=== PATIENT | female | born 1950 | race Caucasian/White ===

== ENCOUNTER 2023-04-02 13:31 | Outpatient (CLI) | payer MEDICARE, SELFPAY | END 2023-04-02 13:32 | disposition home or self-care (01) | LOC: KYNREF 13:32 | PROVIDERS: PCP Nurse Practitioner Family; Visit Provider Nurse Practitioner Family | DX: Z00.00 Encounter for general adult medical examination without abnormal findings (principal); E89.0 Postprocedural hypothyroidism; E03.9 Hypothyroidism, unspecified | CPT/HCPCS: 84439; 84443 ==

== ENCOUNTER 2023-06-05 09:00 | Outpatient (CLI) | payer MEDICARE, SELFPAY | END 2023-06-05 09:01 | disposition home or self-care (01) | PROVIDERS: PCP Nurse Practitioner Family; Referring Provider Nurse Practitioner Family; Visit Provider Nurse Practitioner Family | DX: E89.0 Postprocedural hypothyroidism (principal) | CPT/HCPCS: 84443 ==

== ENCOUNTER 2023-06-15 15:43 | Outpatient (CLI) | payer MEDICARE, SELFPAY ==
--- NOTE | 2023-06-15 16:00 | CRLHL7_ITS ---
For Patients: As a result of the Century Cures Act, medical imaging exams and procedure reports are released immediately into your electronic medical record. You may view this report before your referring provider. If you have questions, please contact your health care provider. CLINICAL HISTORY: POSTMENOPAUSAL BLEEDING TECHNIQUE: 2D ibarra scale and color Doppler images were acquired of the pelvis using a transvaginal approach. FINDINGS: The uterus measures 5.4 x 2.9 x 3.6 cm. There is a heterogeneous nodular structure within the endometrium measuring 11 x 6 x 10 millimeters. The endometrial thickness is 9 millimeters. A small amount of fluid is present in the endometrial canal. The ovaries are not visualized. There are no suspicious fluid collections within the cul-de-sac. IMPRESSION: Possible endometrial polyp measuring 1.1 cm. Endometrial thickness 9 millimeters with a small amount of fluid in the endometrial canal. No uterine fibroid. Dictated by Gaetano Jorgensen MD @ 06/18/2023 3:27:31 PM (Electronically Signed)
== END 2023-06-15 15:44 | disposition home or self-care (01) ==
LOC: US 15:44
PROVIDERS: PCP Nurse Practitioner Family; Visit Provider Physician Assistant
DX: N95.0 Postmenopausal bleeding (principal); R93.89 Abnormal findings on diagnostic imaging of other specified body structures
CPT/HCPCS: 76830

== ENCOUNTER 2023-06-22 10:39 | Outpatient (CLI) | payer MEDICARE, SELFPAY | END 2023-06-22 10:40 | disposition home or self-care (01) | PROVIDERS: PCP Nurse Practitioner Family; Referring Provider Nurse Practitioner Family; Visit Provider Obstetrics & Gynecology | DX: N95.0 Postmenopausal bleeding (principal); Z80.0 Family history of malignant neoplasm of digestive organs | CPT/HCPCS: 87086 ==

== ENCOUNTER 2023-08-02 08:55 | Outpatient (CLI) | payer MEDICARE, SELFPAY | END 2023-08-02 08:56 | disposition home or self-care (01) | PROVIDERS: PCP Nurse Practitioner Family; Visit Provider Nurse Practitioner Family | DX: Z01.818 Encounter for other preprocedural examination (principal); N95.0 Postmenopausal bleeding | CPT/HCPCS: 80048; 85025 ==

== ENCOUNTER 2023-08-14 06:01 | Day surgery (SDC) | payer MEDICARE, SELFPAY ==
[2023-08-14 06:09] VITALS: BMI 26.9
[2023-08-14 06:23] VITALS: BP 135/72; PULSE 83; RESP 16; TEMP 37.4; O2SAT 98
[2023-08-14] MEDS: LACTATED RINGERS 1000 ML 1,000 ML 100 ML IV (06:30)
[2023-08-14] MEDS: SODIUM CHLORIDE 0.9 % (FLUSH) 10 ML SYRINGE IVF (06:30)
[2023-08-14 06:38] LABS: Hemoglobin* 14.2 gm/dL (12.0-16.0)
[2023-08-14 07:02] LABS: Creatinine* 0.7 mg/dL (0.5-1.5); Estimated Glomerular Filt Rate 93 ml/min
--- NOTE | 2023-08-14 07:13 | PM.GYNHPPRM ---
RESEARCH AND DEVELOPMENT TESTER: H&P: HPI Surgical History of Present Illness Time Seen by Provider: 07:00 Date Seen: 08/14/23 Last H&P: History & Physical 08/02/23 08:29 Narrative: Juliana Leal is a 72 year old female seen in pre-op prior to planned hysteroscopy, dilation and curettage and possible polypectomy in the setting of postmenopausal bleeding. Past medical history significant for hypothyroidism, osteopenia, anxiety, GERD, history of bowel obstruction requiring hemicolectomy. 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 Please see my consult note on 06/22/2023 for complete details. Celine is feeling well this morning, no interval change sure all history. She does note cramping secondary to use of preoperative misoprostol. Pelvic US 06/15/23 Impression: Possible endometrial polyp measuring 1.1 cm. Endometrial thickness 9 millimeters with a small amount of fluid in the endometrial canal. No uterine fibroid. PFSH [facility] Medical History (Updated 08/02/23 @ 08:57 by Brittany Navarro APRN, CRITICAL CARE NURSE) Hx of eczema ?Z87.2 - Personal history of diseases of the skin and subcutaneous tissue (ICD-10) Seasonal allergies ?J30.2 - Other seasonal allergic rhinitis (ICD-10) History of anxiety ?Z86.59 - Personal history of other mental and behavioral disorders (ICD-10) History of colon polyps ?Z86.010 - Personal history of colonic polyps (ICD-10) History of depression ?Z86.59 - Personal history of other mental and behavioral disorders (ICD-10) History of multinodular goiter ?Z86.39 - Personal history of other endocrine, nutritional and metabolic disease (ICD-10) Surgical History (Updated 06/12/23 @ 08:42 by Xi Loera PA-C) History of D&C ?Z98.890 - Other specified postprocedural states (ICD-10) History of colposcopy ?Z98.890 - Other specified postprocedural states (ICD-10) History of colectomy ?Z90.49 - Acquired absence of other specified parts of digestive tract (ICD-10) History of right knee surgery ?Z98.890 - Other specified postprocedural states (ICD-10) H/O bilateral cataract extraction ?Z98.41 - Cataract extraction status, right eye (ICD-10) ?Z98.42 - Cataract extraction status, left eye (ICD-10) History of surgery on right wrist ?Z98.890 - Other specified postprocedural states (ICD-10) History of tubal ligation ?Z98.51 - Tubal ligation status (ICD-10) History of thyroidectomy ?E89.0 - Postprocedural hypothyroidism (ICD-10) Family History (Updated 06/28/23 @ 04:10 by Brittany Navarro APRN, CRITICAL CARE NURSE) Father Ataxia Mother Colon cancer, Onset Age: 26 Social History (Updated 08/02/23 @ 08:45 by Brittany Navarro APRN, CRITICAL CARE NURSE) Narrative: Retired. Non smoker, rare alcohol use. No illicit drug use. 3 children. Smoking Status: Never smoker Do you use any of these nicotine containing products: None How often do you have a drink containing alcohol: monthly or less Alcohol type: wine How many standard drinks containing alcohol do you have on a typical day: 1 or 2 How often do you have six or more drinks on one occasion: Never AUDIT-C Alcohol total score: 1 Non-prescribed substance use: marijuana (any form) Non-prescribed substance use details: CBD oil Caffeine: No Are you using contraception or practicing any form of control: No Meds Home Medications and Allergies Allergies Allergy/AdvReac Type Severity Reaction Status Date / Time acetaminophen [From Vicodin] Allergy Verified 08/02/23 08:30 aspirin Allergy Verified 08/02/23 08:30 bacitracin Allergy Verified 08/02/23 08:30 erythromycin base Allergy Verified 08/02/23 08:30 hydrocodone [From Vicodin] Allergy Verified 08/02/23 08:30 ketorolac [From Toradol] Allergy Verified 08/02/23 08:30 NSAIDS (Non-Steroidal Allergy Verified 08/02/23 08:30 Anti-Inflamma sulfamethoxazole Allergy Verified 08/02/23 08:30 [From Sulfamethoxazole-Trimethoprim] trimethoprim Allergy Verified 08/02/23 08:30 [From Sulfamethoxazole-Trimethoprim] RESEARCH AND DEVELOPMENT TESTER - Exam Physical Exam: Vital signs: Temp Pulse Resp BP Pulse Ox O2 Del Method 99.4 F 83 16 135/72 98 Room Air 08/14/23 06:23 08/14/23 06:23 08/14/23 06:23 08/14/23 06:23 08/14/23 06:23 08/14/23 06:23 Narrative: Physical exam: General: No acute distress Psych: Alert and oriented x3, full affect Heart: Regular rate and rhythm, no murmur rub or gallop Lungs: Clear to auscultation bilaterally RESEARCH AND DEVELOPMENT TESTER - Results Labs Labs: Short CBC 08/14/23 Range/Units 06:30 Hgb 14.2 (12.0-16.0) gm/dL Assessment and Plan Assessment and plan (1) Postmenopausal bleeding: Status: Acute Plan Plan to proceed with hysteroscopy, dilation and curettage and possible polypectomy in the setting of postmenopausal bleeding with thickened endometrial stripe and possible endometrial polyp. Given history of cervical stenosis, pre-operative misoprostol was administered. We again reviewed risks of surgery, where she is at increased risk of perforation in the setting of cervical stenosis. Written consent obtained previously, re-initialed this morning. In addition, she has a history of high-grade cervical dysplasia requiring LEEP in 2006. We discussed recommendation for 25 years of cervical cancer screening following high-grade dysplasia per [facility]P, plan to obtain repeat Pap/HPV testing today. We added this to her consent form and Celine provided an initial by this statement to acknowledge it. Preoperative hemoglobin in creatinine reviewed, within normal limits. Celine does have several medication allergies, notably including NSAIDs. She notes her reaction to this is facial swelling, that may be delayed in onset. She is able to tolerate Tylenol at home. As such, we will avoid all NSAIDs. Recommend she utilize 1000 mg Tylenol q6h scheduled for the 1st 48-72 hours after surgery for cramping, and heat therapy. No perioperative antibiotics indicated. Discussed postoperative restrictions and return precautions. Recommend pelvic rest x2 weeks. No lifting restriction. Encouraged patient to call with any worsening pain, heavy vaginal bleeding, nausea/vomiting, fevers or chills, signs or symptoms of a VTE, heart attack or stroke.
[2023-08-14] MEDS: BUPIVACAINE 0.5% 30 ML INJECTION (08:00)
--- NOTE | 2023-08-14 08:30 | W.ANESCHARGE ---
Anesthesia Charges Start Date/Time Anesthesia Start Date: 08/14/23 Anesthesia Start Time: 07:15 Stop Date/Time Anesthesia Stop Date: 08/14/23 Anesthesia Stop Time: 08:46 Summary Extremes of Age - Over 70 or under 1: MDA
[2023-08-14] MEDS: SILVER NITRATE APPLICATOR 1 EACH STICK..EA. TOPICAL (08:33)
[2023-08-14 08:44] VITALS: BP 113/59; PULSE 68; RESP 16; TEMP 37.1; O2SAT 96
--- NOTE | 2023-08-14 08:53 | P.GYNPRC_ITS ---
Procedure Note Time Seen by Provider: 08:53 Date of procedure: 08/14/23 Pre-op diagnosis: Post-menopausal bleeding Post-op diagnosis: same Procedure: Exam under anesthesia Pap test Attempted hysteroscopy Repair of vaginal laceration Complications: Inability to enter uterine cavity for sampling Uterine perforation Surgeon: Micha Haji MD Estimated blood loss (mL): 10 IV fluids (mL): 700 Pathology: none sent Condition: stable Disposition: same day Findings: External genital exam within normal limits Cervix flush with vaginal mucosa Severe cervical stenosis Vaginal atrophy Procedure Description: Procedure in detail: Patient was taken to the operating room with IV running. She was positioned in dorsal lithotomy position with her legs fully supported in Yellofin stirrups. Monitored anesthesia care was administered. She received pre-op cytotec given history of cervical stenosis, no antibiotics for the case. Procedure pause was held for Pap test. Sterile speculum inserted, where no appreciable cervix could be visualized. Speculum removed and bimanual exam was performed to palpate cervix. Speculum was reinserted with attempt to visualize previously palpated cervix. Pap spatula and brush utilized to attempt to collect specimen, though cervical os was still unable to be visualized. Speculum removed. She was then prepped and draped in the usual sterile fashion. A surgical pause was performed. Speculum was inserted. Inability to visualize any residual cervix (status post LEEP) was noted. An Allis clamp was utilized to grasp site of previously palpated cervix. Speculum was removed and digital exam was used to confirm that the cervix was within Allis clamp. Speculum was reinserted. Allis was revised to a single-tooth tenaculum. Mini-cervical dilator of the smallest diameter was utilized to attempt to gently probe open the external os without success. An 11 blade was utilized to make a 2 mm incision at the site of suspected external os. Mini-cervical dilators and os finder were utilized to gently dilate endocervical canal with significant difficulty. I intentionally inserted dilators where least resistance was felt, and to a depth that should traverse her cervix but not so much that it would exceed her uterine length of 5.4 cm (noted on ultrasound). Attempted to insert operative hysteroscope, which not be accommodated through her narrowed os. 1 cm vaginal laceration was noted following hysteroscopy attempt at the posterior fornix, pressure applied. We then retrieved a 2 mm diagnostic hysteroscope from the clinic, which was sterilely set up for use to ensure that dilated canal was truly the endocervical canal versus a false passage. The 2 mm flexible hysteroscope was inserted into the endocervical canal, where sharp anteflexion was required to stay within apparent endocervical canal. When I attempted to gently advanced through the internal os, a loss of resistance was felt and peritoneal contents visualized. The hysteroscope was immediately removed in the setting of uterine perforation, suspected to be anterior fundal in location. Decision was made to stop procedure, where tissue sampling could not be safely accomplished. No sharp instruments were utilized through the entirety of the attempted hysteroscopy. I asked Dr. Armstrong to present for the case for assistance given severe cervical stenosis. She completed a pelvic exam under anesthesia as well, where she affirmed the above exam findings including the inability to distinguish the cervix from vaginal tissue. A weighted speculum was reintroduced to visualize posterior fornix vaginal laceration. This was repaired in a running/locking fashion with 3-0 Vicryl suture. Excellent hemostasis noted. Tenaculum removed from anterior cervix, hemostasis achieved with silver nitrate. Patient tolerated procedure well. She was taken to recovery area in stable condition. Debrief completed. Procedure was exam under anesthesia, pap test, attempted hysteroscopy and repair of vaginal laceration. Complications included uterine perforation with a blunt instrument. Specimen includes Pap test for cytolo gy/HPV. EBL 10cc. IVF 700cc.
--- NOTE | 2023-08-14 08:54 | P.ANES_ITS ---
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
[2023-08-14 09:00] VITALS: BP 112/70; PULSE 50; RESP 16; O2SAT 100
[2023-08-14 09:15] VITALS: BP 126/67; PULSE 53; RESP 16; O2SAT 95
[2023-08-14] MEDS: ACETAMINOPHEN 500 MG TABLET 1000 MG PO (09:29)
[2023-08-14 09:30] VITALS: BP 129/73; PULSE 65; RESP 16; O2SAT 98
--- NOTE | 2023-08-14 09:37 | SUR.PHASEII ---
PATIENT TOLERATING CRANBERRY JUICE AND YOGURT.
[2023-08-14 09:45] VITALS: BP 129/74; PULSE 60; RESP 16; O2SAT 98
== END 2023-08-14 10:00 | disposition home or self-care (01) ==
PROVIDERS: PCP Nurse Practitioner Family; Visit Provider Obstetrics & Gynecology
PROC: 0UDB8ZZ Extraction of Endometrium, Via Natural or Artificial Opening Endoscopic (ICD-10-PCS; CPT 58558; principal; 2023-08-14 07:15)
DX: N95.0 Postmenopausal bleeding (principal); N88.2 Stricture and stenosis of cervix uteri; N95.2 Postmenopausal atrophic vaginitis; N99.71 Accidental puncture and laceration of a genitourinary system organ or structure during a genitourinary system procedure; Z53.8 Procedure and treatment not carried out for other reasons
CPT/HCPCS: 58555; 57200; 00952; 36415; 82565; 85018; 99100; A9270; J0665; J1100; J2704; J3010; J7120

== ENCOUNTER 2023-09-25 08:49 | Outpatient (CLI) | payer MEDICARE, SELFPAY | END 2023-09-25 08:50 | disposition home or self-care (01) | PROVIDERS: PCP Nurse Practitioner Family; Visit Provider Nurse Practitioner Family | DX: Z13.228 Encounter for screening for other metabolic disorders (principal); Z13.0 Encounter for screening for diseases of the blood and blood-forming organs and certain disorders involving the immune mechanism | CPT/HCPCS: 80053; 85025 ==

== ENCOUNTER 2023-10-09 08:04 | Day surgery (SDC) | payer MEDICARE, SELFPAY ==
[2023-10-09] VITALS (19 sets, daily range): BP systolic 97–125; BP diastolic 57–79; PULSE 62–84; RESP 10–18; TEMP 36.2–37.3; O2SAT 85–100; BMI 26.9
[2023-10-09] MEDS: SODIUM CHLORIDE 0.9 % (FLUSH) 10 ML SYRINGE IVF (08:59)
[2023-10-09] MEDS: LACTATED RINGERS 1000 ML 1,000 ML 100 ML IV ×2 (09:00→13:16)
[2023-10-09 09:28] LABS: Creatinine* 0.6 mg/dL (0.5-1.5); Est. Creatinine Clearance* 38.94; Estimated Glomerular Filt Rate 96 ml/min
--- NOTE | 2023-10-09 09:53 | W.PM.H&PU_ITS ---
History & Physical Update History & Physical Update H&P Reviewed and patient assessed: No changes noted H&P Updates: Ms. Leal is a 73yo seen in pre-op prior to planned total laparoscopic hysterectomy, bilateral salpingo-oophorectomy, possible posterior repair and diagnostic cystoscopy, proceed as indicated. We again reviewed surgical plan in detail. I explained I will begin the procedure with a diagnostic laparoscopy. I anticipate we will then proceed with total laparoscopic hysterectomy versus laparoscopic-assisted vaginal hysterectomy with bilateral salpingo-oophorectomy given her prior pelvic/sigmoid surgery. If it is felt to be unsafe to proceed laparoscopically due to adhesions given prior sigmoid colectomy, I explained that we would convert to an open procedure via likely a Pfannenstiel incision. She expressed understanding and is agreeable to plan. After cuff closure, I will complete an assessment of her posterior compartment prolapse. In the office, her prolapse was quite mild but patient does require splinting. I explained this could be due to her mild post erior repair, but I would likely need to complete an episiotomy to repair it given degree that her perineum is built up so the risk of posterior repair may outweigh benefit depending on my intraoperative findings. Juliana expressed understaning and is comfortable with me making a decision on her behalf intraoperatively. We again reviewed risks of surgery including bleeding, infection, damage to surrounding structures, reoperation and complications of anesthesia/surgery such as VTE, heart attack, stroke and rarely . Consent was re-signed. Reviewed plan for one night in the hospital post-procedure. Discussed post-op lifting restrictions, pelvic rest and return precautions in depth. All questions answered. Conversation took place with Juliana and her two sons present. VS reviewed. Pre-op labs: - Hgb: 14 - Cr: 0.6 - T/S on file Physical exam: General: No acute distress Psych: Alert and oriented x3, full affect Heart: Regular rate and rhythm, no murmur rub or gallop Lungs: Clear to auscultation bilaterally Plan as above. All questions answered. Perioperative ancef.
[2023-10-09] MEDS: CEFAZOLIN 2 GM INJ IVP (10:29)
[2023-10-09] MEDS: METHYLENE BLUE 1 % 10 ml 100 MG INJECTION (11:59)
--- NOTE | 2023-10-09 12:19 | W.ANESCHARGE ---
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
--- NOTE | 2023-10-09 12:42 | W.ANESCHARGE ---
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
--- NOTE | 2023-10-09 13:07 | P.GYNPRC_ITS ---
Procedure Note Time Seen by Provider: 13:07 Date of procedure: 10/09/23 Pre-op diagnosis: Postmenopausal bleeding Post-op diagnosis: same Procedure: Total laparoscopic hysterectomy Bilateral salpingectomy Left oophorectomy Diagnostic cystoscopy Lysis of adhesions Anesthesia: GETA Complications: None Surgeon: Micha Haji MD Multiple Punch Press Operator: Philly Light Estimated blood loss (mL): 100 IV fluids (mL): 1,700 Urine Output (mL): 200 Pathology: specimen obtained, sent to pathology Condition: stable Disposition: floor Findings: Adhesive disease secondary to prior sigmoid colectomy with anastomosis in the setting of recurrent diverticulitis Adhesions noted between the colon and bilateral adnexa, primarily thin and filmy with additional adhesions between the adnexa and colonic epiploa The right ovary could not be visualized secondary to overlying colon and adhesive disease Unremarkable uterus and bilateral fallopian tubes Normal diagnostic cystoscopy with bilateral ureteral efflux at completion of procedure Procedure Description: The patient was brought to the operating room where she underwent general anesthesia.? She was prepped and draped in synchronous position in [facility].?She received perioperative ancef. A speculum was inserted and, again, no cervix was able to visualized. Bimanual exam performed, where a stitch was subsequently placed on suspected cervix by digital palpation. A Lewis catheter was placed.?? We then turned our attention to the abdomen, and an infraumbilical 1-cm incision was made and carried down through the fascia using an open laparoscopic technique.? A Reed trocar was placed, and pneumoperitoneum was created.? The laparoscope was introduced, and bilateral liver and diaphragm surfaces were inspected and found to be normal.? All visible bowel and omentum were unremarkable.?Under direct vision, bilateral 5-mm lower quadrant ports as well as a left paramedian port were placed. ? In the pelvis, there was evidence of adhesive disease secondary to prior sigmoid colectomy in the setting of recurrent diverticulitis. Adhesions were noted primarily between the epiploa of the colon to the bilateral adenxa, right greater than left. The serosa of the colon was identified and noted to be well away from areas of adhesions. We first mobilized the thin adhesions between the left adnexa and epiploa of the colon, with ligasure and gentle blunt dissection. Attention was then turned to the right, where the fallopian tube was gently elevated and adhesions were taken down. These adhesions were primarily thin, but there were areas where the epiploa itself was adherent to the tube and paraovarian fossa which were again taken down with a combination of ligasure and blunt dissection. The right ovary could not be visualized, as it was suspected to be located underlying bowel epiploa. This was in closer proximity to the serosa of the bowel, where decision was made to proceed with right salpingectomy rather than our intended opportunistic salpingo-oophorectomy. The left infundibulopelvic vessels were isolated, sealed, and transected using the ligasure, and the left tube and ovary were dissected off of the pelvic sidewall.?We proceeded to seal/transect the left round and broad ligaments. A v aginal probe was placed. The bladder flap peritoneum was then incised and the bladder was reflected down off the lower uterine segment, cervix, and upper vagina. The posterior peritoneum and ureterosacral ligament was divided to isolate course of planned colpotomy. The uterine vasculature was skeletonized and sealed and transected using ligasure. Attention was then turned to the right, where a right salpingectomy was performed with ligasure. Transection/ligation down the broad ligament occurred in a similar fashion, where right bladder flap was again developed to well below the site of planned colpotomy. Posterior peritoneum/uterosacral ligaments were taken down. The right uterine vessels were isolated, sealed and transected with ligasure. A vaginotomy was performed with Valleylab cautery against the vaginal probe, and a circumferential incision was then made around the cervix.? The uterus, tubes, and left ovary were delivered through the vagina and sent to Pathology.?The vagina was then closed transvaginally using interrupted 0 Vicryl sutures, incorporating the uterosacral ligaments bilaterally.?A small vaginal laceration was noted at the posterior vaginal introitus, where a single [id number]-[id number] suture was utilized to close defect. Cystoscopy was performed, where bladder survey was negative for injury/suture and bilateral ureteral efflux was readily apparent. I then rescrubbed and turned our attention again to the laparoscopic portion of the procedure. The pelvis was inspected and hemostasis was assured. Intraoperative consultation with General Surgery was requested, where Dr. Samayoa visually inspected the colonic epiploa and serosa where she agreed the areas of previous lysis of adhesion were well away from bowel serosa. Deja was applied over vaginal cuff. We did a low pressure test to 3mmHg where hemostasis was again confirmed. All instruments and ports were then removed.? The infraumbilical incision was closed with a layer of No. 1 Vicryl on the fascia, and all skin incisions were closed with 3-0 Monocryl in a subcuticular fashion.?Superficial surgical glue applied. Surgical debrief completed, specimens sent to pathology. EBL 100mL, IVF 1700mL and UOP 200mL. The patient tolerated the procedure well and went to recovery in stable condition.?
[2023-10-09] MEDS: ACETAMINOPHEN INJ 1,000 MG/100 ML VIAL 400 MG IVPB (13:18)
[2023-10-09] MEDS: LACTATED RINGERS 1000 ML 1,000 ML 35 ML IV (13:40)
--- NOTE | 2023-10-09 13:57 | SUR.PHASEI ---
patient met pacu d/c criteria
[2023-10-09] MEDS: fentaNYL 100 MCG/2 ML inj 50 MCG IVP (14:00)
[2023-10-09] MEDS: TRAMADOL HCL 50 MG TABLET PO ×2 (16:08→22:08)
[2023-10-09] MEDS: ACETAMINOPHEN 325 MG TABLET 650 MG PO ×2 (19:21→23:42)
[2023-10-10 03:30] VITALS: BP 105/59; PULSE 70; RESP 16; TEMP 37; O2SAT 94
[2023-10-10] MEDS: ACETAMINOPHEN 325 MG TABLET 650 MG PO (03:49)
[2023-10-10 07:01] LABS: Hemoglobin* 11.8 gm/dL (12.0-16.0)
[2023-10-10 07:45] VITALS: BP 96/58; PULSE 64; RESP 16; TEMP 36.9; O2SAT 92
--- NOTE | 2023-10-10 08:47 | P.DS_ITS ---
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 Indication for surgery: Postmenopausal bleeding with inability to sample the endometrium secondary to severe cervical stenosis. Intraoperative findings were notable for adhesive disease from prior sigmoid colon resection/anastomosis for recurrent diverticulitis, inability to visualize the right ovary. Please see my operative note for complete details. She had an uncomplicated surgery. Postoperative course has been uneventful. Vitals have been stable. She has remained afebrile. Today, on postoperative day 1, she reports the pain is well controlled on primarily Tylenol (though did take 1 dose of p.o. tramadol). She has been able to ambulate Without difficulty, specifically denies dizziness, lightheadedness, chest pain or dyspnea. She is tolerating regular diet. She is passing flatus. Lewis catheter has been removed, and she is voiding without difficulty. 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 Minimally tender to palpation in the bilateral lower quadrants, consistent with postoperative state. No rebound or guarding. Four laparoscopic incisions are well approximated without erythema/drainage, superficial surgical glue in place. 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 - DS: Data Data Completed and Pending Labs on day of discharge: Labs from last 24 hours 10/10/23 10/09/23 06:42 09:05 Hgb 11.8 L 14.0 Creatinine 0.6 Estimated Creat Clear 38.94 Estimated GFR 96 Blood Type A Positive Antibody Screen NEGATIVE Procedures Procedures: Procedures Operation Date: 10/09/23 09:50 Actual Procedure Side Surgeon p Total Laparoscopic Hysterectomy, Left Salpingo-Oophorectomy, Right Salpingectomy, Cystoscopy Not Applicable Alexandria Haji MD Discharge Plan Discharge Disposition: Home w/ Parent or Adult Discharging Surgeon: Alexandria Haji Follow-Up Appointment: 2 weeks and 6 weeks post-op Prescriptions: New tramadol 50 mg Tablet 50 mg PO Q6H PRN (Reason: Pain) 7 Days Qty: 10 0RF Continued levothyroxine 100 mcg tablet 100 mcg PO DAILY Discontinued peg 3350-electrolytes [Golytely] 236-22.74-6.74 -5.86 gram recon soln 240 ml PO Q10M Qty: 4000 0RF Rx Instructions: until fecal effluent is clear Activity Level: Activity as Tolerated Discharge Diet: Regular Additional Instructions: Lifting restrictions: Please do not lift more than 15lbs for 6 weeks Sexual restriction: Pelvic rest for 6 weeks Pain control: Over the counter Acetaminophen 1000 mg by mouth every six hours on a full stomach for pain as needed Tramadol 50mg every 6 hours as needed for breakthrough pain Please call with: - Heavy vaginal bleeding - Increasing or severe abdominal pain - Fevers/chills - Inability to tolerate solid/liquids by mouth, recurrent nausea/vomiting - Incision redness/drainage - Signs or symptoms of a blood clot - calf pain, redness, swelling, chest pain or shortness of breath Follow-up: Brittany Navarro APRN, [facility] HEAD [Primary Care Provider] - Discharge Orders: Discharge Order (Routine); Ordered 10/10/23 Ordered By: Alexandria Haji
[2023-10-10 09:45] VITALS: BP 102/60; PULSE 68; RESP 16; O2SAT 94
--- NOTE | 2023-10-10 13:16 | P.NB_ITS ---
Nerve Block Nerve Block Time Seen by Provider: 10:20 Date Seen: 10/09/23 Type of block requested by surgeon for post-operative analgesia: TAP Side: bilateral Time out performed: Yes Verification of patient name: Yes Verification of date of : Yes Site marking: site marked Name of person performing procedure: Toi Continuous monitoring Was continuous monitoring of O2 sat, B/P, artistic director, recorded every 15 minutes?: Yes Procedure Checklist: sterile prep, needles and gloves Ultrasound guided. Images saved: Yes Medications given in 5ml increments after negative aspiration: Marcaine %: 0.25 mL: 30 Needle gauge: 20 and Exparel mL: 10 Patient tolerated procedure well: Yes Additional comments: Needle noted between internal oblique and transversus abdominus. Local spread visualized Block Charges Block Charge (with Pro Fee): TAP Bilateral Use of Ultrasound Machine for Block: Yes- US Guidance/pain block
== END 2023-10-10 10:00 | disposition home or self-care (01) ==
LOC: OR 08:05 → MEDSURG 08:20 → OB 12:44
PROVIDERS: PCP Nurse Practitioner Family; Visit Provider Obstetrics & Gynecology
PROC: (CPT 58571; principal; 2023-10-09 09:30)
DX: N95.0 Postmenopausal bleeding (principal); N84.0 Polyp of corpus uteri; N73.6 Female pelvic peritoneal adhesions (postinfective); G89.18 Other acute postprocedural pain
CPT/HCPCS: 58571; 00840; 36415; 64488; 76942; 82565; 85018; 86850; 86900; 86901; 88307; 99100; A9270; C9290; J0131; J0330; J0665; J0690; J1100; J2371; J2405; J2704; J2710; J3010; J3475; J7120

== ENCOUNTER 2023-10-31 08:08 | Outpatient (CLI) | payer MEDICARE, SELFPAY | END 2023-10-31 08:09 | disposition home or self-care (01) | LOC: NFLDREF 11-02 07:02 | PROVIDERS: PCP Nurse Practitioner Family; Referring Provider Nurse Practitioner Family; Visit Provider Physician Assistant Medical | DX: R30.0 Dysuria (principal); N39.0 Urinary tract infection, site not specified; L23.89 Allergic contact dermatitis due to other agents | CPT/HCPCS: 87086; 87186 ==

== ENCOUNTER 2023-11-20 11:20 | Outpatient (CLI) | payer MEDICARE, SELFPAY | END 2023-11-20 11:21 | disposition home or self-care (01) | LOC: NFLDREF 11:21 | PROVIDERS: PCP Nurse Practitioner Family; Visit Provider Obstetrics & Gynecology | DX: N39.0 Urinary tract infection, site not specified (principal) | CPT/HCPCS: 87086 ==

== ENCOUNTER 2023-11-21 14:40 | Inpatient (IN) | payer MEDICARE, SELFPAY ==
[2023-11-21] VITALS (9 sets, daily range): BP systolic 117–132; BP diastolic 67–105; PULSE 60–80; RESP 20–28; TEMP 37.1–37.3; O2SAT 96–100; BMI 26.7; BMI 26.2
--- NOTE | 2023-11-21 14:59 | ED.ABDPAIN ---
HPI - Abdominal Pain General Time Seen by Provider: 14:59 Date Seen: 11/21/23 Chief Complaint: Abdominal Pain Stated Complaint: Severe abdominal pain, suspected obstruction Time Seen by Provider: 11/21/23 14:41 Source: patient, RN notes reviewed and old records reviewed Mode of arrival: ambulatory Limitations: no limitations History of Present Illness HPI narrative: This 73-year-old female is coming in with severe abdominal pain that she thinks might be recurrent bowel obstruction. She has had a history of bowel obstructions, believe she had surgery in [facility] in 2005. She states the pain is coming in waves, feels more in her upper abdomen. When it comes it is severe, she rocks back and forth in pain. She had a small bowel movement this morning, had a normal bowel movement yesterday. She had a rice cake for breakfast, has not eaten since then, has not been able to eat since this started. Has had nausea but no vomiting. No fever. She has had a portion of her colon removed due to a bowel obstruction per her report. Note her chart states she had portion of her colon removed in 2010 due to diverticulitis issues. She has had a prior tubal ligation. MD elicited complaint: abdominal pain Related Data Patient : No Home Medications Medication Instructions Recorded Confirmed levothyroxine 100 mcg tablet 100 mcg PO DAILY 10/09/23 11/21/23 buspirone 5 mg tablet 5 mg PO BID 11/21/23 11/21/23 estradiol 0.01% (0.1 mg/gram) vaginal 11/21/23 vaginal cream Allergies Allergy/AdvReac Type Severity Reaction Status Date / Time aspirin Allergy Verified 11/21/23 15:44 bacitracin Allergy Verified 11/21/23 15:44 chlorhexidine Allergy Verified 11/21/23 15:44 [From ChloraPrep Clear] erythromycin base Allergy Verified 11/21/23 15:44 hydrocodone [From Vicodin] Allergy Verified 11/21/23 15:44 isopropyl alcohol Allergy Verified 11/21/23 15:44 [From ChloraPrep Clear] ketorolac [From Toradol] Allergy Verified 11/21/23 15:44 NSAIDS (Non-Steroidal Allergy Verified 11/21/23 15:44 Anti-Inflamma sulfamethoxazole Allergy Verified 11/21/23 15:44 [From Sulfamethoxazole-Trimethoprim] trimethoprim Allergy Verified 11/21/23 15:44 [From Sulfamethoxazole-Trimethoprim] Review of Systems Status of ROS Reports: 6 or more systems reviewed and unremarkable except as noted in History and below PFSH [facility] Medical History Urinary tract infection ?N39.0 - Urinary tract infection, site not specified (ICD-10) Hx of eczema ?Z87.2 - Personal history of diseases of the skin and subcutaneous tissue (ICD-10) Seasonal allergies ?J30.2 - Other seasonal allergic rhinitis (ICD-10) History of anxiety ?Z86.59 - Personal history of other mental and behavioral disorders (ICD-10) History of colon polyps ?Z86.010 - Personal history of colonic polyps (ICD-10) History of depression ?Z86.59 - Personal history of other mental and behavioral disorders (ICD-10) History of multinodular goiter ?Z86.39 - Personal history of other endocrine, nutritional and metabolic disease (ICD-10) Surgical History History of D&C ?Z98.890 - Other specified postprocedural states (ICD-10) History of colposcopy ?Z98.890 - Other specified postprocedural states (ICD-10) History of colectomy ?Z90.49 - Acquired absence of other specified parts of digestive tract (ICD-10) History of right knee surgery ?Z98.890 - Other specified postprocedural states (ICD-10) H/O bilateral cataract extraction ?Z98.41 - Cataract extraction status, right eye (ICD-10) ?Z98.42 - Cataract extraction status, left eye (ICD-10) History of surgery on right wrist ?Z98.890 - Other specified postprocedural states (ICD-10) History of tubal ligation ?Z98.51 - Tubal ligation status (ICD-10) History of thyroidectomy ?E89.0 - Postprocedural hypothyroidism (ICD-10) Family History Father Ataxia Mother Colon cancer, Onset Age: 26 Social History Narrative: Retired. Non smoker, rare alcohol use. No illicit drug use. 3 children. What is your current living situation?: I presently have a place to live In the past 12 months, utilities in danger of being shut off: no In past 12 months, lack of transportation kept you from medical appts, meetings, work, or getting things needed for daily living: no In the past 12 mos, have been you worried that your food would run out before you had money to buy more?: never true In the past 12 mos, the food you bought just didn't last and you didn't have money to buy more?: never true Smoking Status: Never smoker Do you use any of these nicotine containing products: None How often do you have a drink containing alcohol: monthly or less Alcohol type: wine How many standard drinks containing alcohol do you have on a typical day: 1 or 2 How often do you have six or more drinks on one occasion: Never AUDIT-C Alcohol total score: 1 Non-prescribed substance use: marijuana (any form) Non-prescribed substance use details: CBD oil Caffeine: No How often does anyone, including family, friends and others, physically hurt you: never How often does anyone, including family, friends and others, insult or talk down to you: never How often does anyone, including family, friends and others, threaten you with harm: never How often does anyone, including family, friends and others, scream or curse at you: never Are you using contraception or practicing any form of control: No service: No Exam Const: Vital Signs, click to edit/add: Vital Signs - 24 hr 11/21/23 14:51 11/21/23 15:46 11/21/23 16:15 Temperature 99.1 F Pulse Rate Pulse Rate [Pulse Oximeter] 80 67 Respiratory Rate 28 H Blood Pressure [Ri ght Upper Arm] 122/105 H 117/67 Pulse Oximetry 100 100 97 Oxygen Delivery Me thod Room Air Room Air Nasal Cannula Oxygen Flow Rate 1 11/21/23 16:25 Temperature Pulse Rate 64 Pulse Rate [Pulse Oximeter] Respiratory Rate Blood Pressure [Ri ght Upper Arm] Pulse Oximetry 98 Oxygen Delivery Me thod Nasal Cannula Oxygen Flow Rate 1 This 73-year-old female at time seems to be comfortable but then will roll back and forth in pain apparently. She is very pleasant, alert, interactive. Certainly seems uncomfortable and distressed when she is in pain. Sclera clear, conjugate gaze. Face atraumatic and symmetrical motion. Able speak in complete sentences. Lungs are clear no wheezing or crackles. CV regular rate and rhythm, no murmur, normal S1-S2. Abdomen appears mildly distended, I do not hear bowel sounds. No significant abdominal pain, maybe mild epigastric pain but certainly no rebound or guarding. I feel no masses. She has no lower extremity edema. Is moving her upper extremities, moving her lower extremities. No acute neurologic changes. Documenting provider has reviewed patient's vital signs: yes Course Course ED Course: Patient will have CT imaging, will initiate IV, obtain appropriate labs. Will start some IV fluids, IV Zofran and 4 mg IV morphine for pain control. She will be monitored on pulse oximetry. Need to rule out acute intra-abdominal pathology which certainly at this point includes a recurrent bowel obstruction. Between the labs and the imaging, we should be able to elucidate the exact nature of her abdominal pain. Other things like pancreatitis, diverticulitis will also be considered. Reevaluation(s) Time of Reevaluation #1: 16:48 Reevaluation #1: Updated the patient on labs and CT finding, reviewed she has small bowel obstruction. She is feeling much better with the pain medicines. Thus, we will not be placing NG tube at this time. Continue to monitor. She will go to the hospital. Consultations Consultation #1: Reviewed with Dr. Byrd the on-call general surgeon. We will place the patient in the hospital, will talk to the hospitalist after this. At this time manage conservatively. Consider NG placement if increasing pain/distension, development of emesis. Did talk to Isabelle Bell right after speaking with the surgeon, she will accept the patient. Time: 16:44 Vital Signs Vital signs: Initial Vital Signs Temperature 99.1 F 11/21/23 14:51 Temperature Source Temporal Artery Scan 11/21/23 14:51 Pulse Rate 80 11/21/23 14:51 Pulse Rhythm Regular 11/21/23 14:51 Pulse Strength 3+ Normal 11/21/23 14:51 Respiratory Rate 28 H 11/21/23 14:51 Blood Pressure 122/105 H 11/21/23 14:51 Blood Pressure Mean 110 H 11/21/23 14:51 Blood Pressure Position Supine 11/21/23 14:51 Pulse Oximetry 100 11/21/23 14:51 Oxygen Delivery Method Room Air 11/21/23 14:51 Vital Signs Temperature 99.1 F 11/21/23 14:51 Pulse Rate 80 11/21/23 14:51 Respiratory Rate 28 H 11/21/23 14:51 Blood Pressure 122/105 H 11/21/23 14:51 Pulse Oximetry 100 11/21/23 14:51 Oxygen Delivery Method Room Air 11/21/23 14:51 Temperature 99.1 F 11/21/23 14:51 Pulse Rate 64 11/21/23 16:25 Respiratory Rate 28 H 11/21/23 14:51 Blood Pressure 117/67 11/21/23 15:46 Pulse Oximetry 98 11/21/23 16:25 Oxygen Delivery Method Nasal Cannula 11/21/23 16:25 Oxygen Flow Rate 1 11/21/23 16:25 Medications Administered Medications: Generic Name Dose Route Start Last Admin Trade Name Freq PRN Reason Stop Dose Admin Sodium Chloride 1,000 mls @ 500 mls/hr 11/21/23 15:05 11/21/23 15:30 0.9 % Sodium Chloride 1000 Ml IV 11/21/23 17:04 500 mls/hr .Q2H TRISHA Administration Discontinued Medications Generic Name Dose Route Start Last Admin Trade Name Freq PRN Reason Stop Dose Admin Morphine Sulfate 4 mg 11/21/23 15:03 11/21/23 15:27 Morphine 4 Mg/Ml Inj IVP 11/21/23 15:04 4 mg ONCE ONE Administration Ondansetron HCl 4 mg 11/21/23 15:03 11/21/23 15:30 Ondansetron 2 Mg/Ml Inj IVP 11/21/23 15:04 4 mg ONCE ONE Administration MDM - Abdominal Pain Lab Data Attestation: I reviewed the patient's lab results. Labs: Lab Results 11/21/23 Range/Units 15:17 WBC 7.39 (4.50-11.00) K/uL RBC 4.53 (4.00-5.20) m/uL Hgb 14.0 (12.0-16.0) gm/dL Hct 42.3 (33.0-51.0) % MCV 93 (80-100) fL MCH 31 (26-34) pg MCHC 33 (32-36) gm/dL RDW Coeff of Ina 13.1 (11.5-15.5) % Plt Count 237 (140-440) K/uL Neut % (Auto) 49.7 (42.0-72.0) % Lymph % (Auto) 40.6 (20-44) % [place] % (Auto) 6.8 (0.0-11.0) % Eos % (Auto) 2.4 (0.0-7.0) % Baso % (Auto) 0.4 (0.0-3.0) % Neut # (Auto) 3.67 (1.7-7.0) K/uL Lymph # (Auto) 3.00 H (0.90-2.90) K/uL [place] # (Auto) 0.50 (0.00-0.90) K/UL Eos # (Auto) 0.18 (0.00-0.50) K/uL Baso # (Auto) 0.03 (0.00-0.30) K/uL Abs Immat Gran (auto) 0.01 (0.00-0.30) K/uL Imm/Tot Granulo (auto) 0.1 % Sodium 139 (135-149) mmol/L Potassium 3.5 L (3.6-5.1) mmol/L Chloride 106 (96-114) mmol/L Carbon Dioxide 25 (20-32) mmol/L Anion Gap 8 (7-15) mEq/L BUN 15 (7-30) mg/dL Creatinine 0.6 (0.5-1.5) mg/dL Estimated Creat Clear 40.81 Estimated GFR 96 ml/min Glucose 95 (60-115) mg/dL Lactate 1.7 (0.5-1.9) mmol/L Calcium 9.7 (8.4-10.6) mg/dL Total Bilirubin 0.3 (0.1-1.5) mg/dL AST 23 (12-35) U/L ALT 22 (4-35) U/L Alkaline Phosphatase 86 (40-150) U/L Total Protein 7.1 (6.0-8.3) g/dL Albumin 4.4 (3.3-5.0) g/dL Lipase 109 (23-300) U/L POC Creatinine 0.7 (0.6-1.3) mg/dl Imaging Data CT scan - abdomen: Attestation: I have reviewed the pertinent imaging results. Radiologist's impression: Patient: BETSY CHOUDHURY Facility:?[facility] Patient ID:?[id number] Site Patient ID:?[id number]. Site :?1950 Study:?CT Abdomen/Pelvis W/ 71CC ISOVUE 370-11/21/2023 3:56:11 PM Ordering Physician:JOSE Final Report: Indication: Severe abdominal pain Technique: CT abdomen/pelvis with IV contrast, 71 mL Isovue 370 Comparison: None Findings: Lower thorax: The heart is normal in size. No focal airspace consolidation, pleural effusion, or pneumothorax. No suspicious pulmonary nodules or masses. Abdomen/pelvis: The liver, gallbladder and biliary system, spleen, pancreas, and bilateral adrenal glands are within normal limits. Small splenule near the splenic hilum and multiple calcified granulomas throughout the spleen, likely sequela of remote granulomatous disease. The kidneys are normal in size and perfused in a normal fashion. No suspicious enhancing renal masses or lesions. Well-circumscribed low-density cystic lesions in the left kidney, likely benign cysts. There are few nonobstructing renal calculi at the lower poles bilaterally. There is no hydroureteronephrosis. The bladder is unremarkable. Status post hysterectomy. No suspicious adnexal lesions. Small hiatal hernia. There are some distended loops of small bowel measuring up to approximately 3 centimeter seen in the right abdomen with focal transition point seen within the right midline pelvis (series number 4, image 69). The appendix is normal. Moderate to large volume stool seen throughout the colon. Scattered colonic diverticula without CT evidence of acute diverticulitis. Colocolonic anastomosis is seen in the distal sigmoid colon. Trace free fluid in the dependent aspect of the pelvis. No free air. No abscess. The vasculature is within normal limits. Soft tissue/musculoskeletal: Tiny hiatal hernia. No acute fracture or malalignment. There are some degenerative changes throughout the spine. Impression: 1. There are some mildly distended loops of small bowel measuring up to approximately 3 centimeter seen in the right abdomen with focal transition point seen within the right midline pelvis (series number 4, image 69). Findings are concerning for partial small bowel obstruction, which may be secondary to adhesions. Recommend consultation with surgery. 2. Trace free fluid in the dependent aspect of the pelvis. No free air. 3. Additional incidental findings as detailed above. Please note that all CT scans at this facility use dose modulation, iterative reconstruction, and/or weight-based dosing when appropriate to reduce radiation dose to as low as reasonably achievable. Dictated by Walker Mclain MD @ 11/21/2023 4:23:22 PM (Electronic Signature) Discharge Plan Discharge Clinical Impression: Small bowel obstruction Patient Disposition: Admitted As Observation Prescriptions: No Action buspirone 5 mg tablet 5 mg PO BID estradiol 0.01 % (0.1 mg/gram) cream vaginal levothyroxine 100 mcg tablet 100 mcg PO DAILY Follow Up/Referrals: Brittany Navarro, FATM[employer], CONTRACT IMPLEMENTATION ANALYST [Primary Care Provider] -
--- NOTE | 2023-11-21 15:03 | CT_ITS ---
Patient: BETSY CHOUDHURY Facility:?[facility] Patient ID:?[id number] Site Patient ID:?[id number]. Site :?1950 Study:?CT-Abdomen/Pelvis W/ 71CC ISOVUE 370-11/21/2023 3:56:11 PM Ordering Physician:JOSE Final Report: Indication: Severe abdominal pain Technique: CT abdomen/pelvis with IV contrast, 71 mL Isovue 370 Comparison: None Findings: Lower thorax: The heart is normal in size. No focal airspace consolidation, pleural effusion, or pneumothorax. No suspicious pulmonary nodules or masses. Abdomen/pelvis: The liver, gallbladder and biliary system, spleen, pancreas, and bilateral adrenal glands are within normal limits. Small splenule near the splenic hilum and multiple calcified granulomas throughout the spleen, likely sequela of remote granulomatous disease. The kidneys are normal in size and perfused in a normal fashion. No suspicious enhancing renal masses or lesions. Well-circumscribed low-density cystic lesions in the left kidney, likely benign cysts. There are few nonobstructing renal calculi at the lower poles bilaterally. There is no hydroureteronephrosis. The bladder is unremarkable. Status post hysterectomy. No suspicious adnexal lesions. Small hiatal hernia. There are some distended loops of small bowel measuring up to approximately 3 centimeter seen in the right abdomen with focal transition point seen within the right midline pelvis (series number 4, image 69). The appendix is normal. Moderate to large volume stool seen throughout the colon. Scattered colonic diverticula without CT evidence of acute diverticulitis. Colocolonic anastomosis is seen in the distal sigmoid colon. Trace free fluid in the dependent aspect of the pelvis. No free air. No abscess. The vasculature is within normal limits. Soft tissue/musculoskeletal: Tiny hiatal hernia. No acute fracture or malalignment. There are some degenerative changes throughout the spine. Impression: 1. There are some mildly distended loops of small bowel measuring up to approximately 3 centimeter seen in the right abdomen with focal transition point seen within the right midline pelvis (series number 4, image 69). Findings are concerning for partial small bowel obstruction, which may be secondary to adhesions. Recommend consultation with surgery. 2. Trace free fluid in the dependent aspect of the pelvis. No free air. 3. Additional incidental findings as detailed above. Please note that all CT scans at this facility use dose modulation, iterative reconstruction, and/or weight-based dosing when appropriate to reduce radiation dose to as low as reasonably achievable. Dictated by Walker Mclain MD @ 11/21/2023 4:23:22 PM Signed by:?Walker Mclain MD @11/21/2023 4:23:22 PM (Electronic Signature)
[2023-11-21 15:23] LABS: Lactate* 1.7 mmol/L (0.5-1.9)
[2023-11-21] MEDS: MORPHINE 4 MG/ML INJ IVP ×3 (15:27→21:48)
[2023-11-21] MEDS: ONDANSETRON 2 MG/ML inj 4 MG IVP (15:30)
[2023-11-21] MEDS: 0.9 % SODIUM CHLORIDE 1000 ml 1,000 ML 500 ML IV (15:30)
[2023-11-21 15:31] LABS: Basophils Absolute Auto 0.03 K/uL (0.00-0.30); Basophils Percent Auto 0.4 % (0.0-3.0); Eosinophils Absolute Auto 0.18 K/uL (0.00-0.50); Eosinophils Percent Auto 2.4 % (0.0-7.0); Hematocrit 42.3 % (33.0-51.0); Immature Granulocytes Abs Auto 0.01 K/uL (0.00-0.30); Immature Granulocytes Pct Auto 0.1 %; Lymphocytes Percent Auto 40.6 % (20-44); Mean Corpuscular HGB Conc 33 gm/dL (32-36); Mean Corpuscular Hemoglobin 31 pg (26-34); Mean Corpuscular Volume 93 fL (80-100); Monocytes Percent Auto 6.8 % (0.0-11.0); Neutrophils Absolute Auto 3.67 K/uL (1.7-7.0); Neutrophils Percent Auto 49.7 % (42.0-72.0); Platelet Count* 237 K/uL (140-440); RDW Coefficient of Variation % 13.1 % (11.5-15.5); Red Blood Count 4.53 m/uL (4.00-5.20); White Blood Count* 7.39 K/uL (4.50-11.00)
[2023-11-21 15:36] LABS: Slide Review Reflex No
[2023-11-21 15:42] LABS: Albumin* 4.4 g/dL (3.3-5.0); Chloride* 106 mmol/L (96-114); Potassium* 3.5 mmol/L (3.6-5.1); Sodium* 139 mmol/L (135-149)
[2023-11-21 15:44] LABS: Creatinine* 0.6 mg/dL (0.5-1.5); Est. Creatinine Clearance* 40.81; Estimated Glomerular Filt Rate 96 ml/min
[2023-11-21 15:45] LABS: Alanine Aminotransferase* 22 U/L (4-35); Alkaline Phosphatase* 86 U/L (40-150); Anion Gap 8 mEq/L (7-15); Aspartate Amino Transferase* 23 U/L (12-35); Bilirubin Total* 0.3 mg/dL (0.1-1.5); Blood Urea Nitrogen* 15 mg/dL (7-30); Carbon Dioxide* 25 mmol/L (20-32); Glucose* 95 mg/dL (60-115); Lipase* 109 U/L (23-300); Total Protein* 7.1 g/dL (6.0-8.3)
[2023-11-21 15:46] LABS: Calcium* 9.7 mg/dL (8.4-10.6)
[2023-11-21 15:47] LABS: Creatinine, Point-of-Care* 0.7 mg/dl (0.6-1.3)
[2023-11-21] MEDS: 0.9 % SODIUM CHLORIDE 1000 ml 1,000 ML 125 ML IV (18:36)
--- NOTE | 2023-11-21 18:37 | P.IMHP_ITS ---
Hospitalist- H&P: HPI History of Present Illness Date Seen: 11/21/23 Chief complaint: Severe abdominal pain, suspected obstruction Narrative: Juliana Leal is a 73 year old female past medical history significant for hypothyroidism, GERD, osteopenia, anxiety, diverticulitis status post colon resection in 2010, status post recent hysterectomy is admitted to the medical floor from the ED for further management small bowel obstruction. Patient reports onset of pain this afternoon, initially feeling queasy. Reports pain directly over stomach. Attempted to eat but this did not resolve the pain. Has been nauseous without vomiting. Nausea improved with antiemetics in the ED. Pain improved with morphine. Had a small bowel movement today, last normal bowel movement was otherwise yesterday. Denies UTI symptoms. Was just treated for a UTI following her hysterectomy. Denies headache or dizziness. Denies chest pain or shortness of breath. Denies recent fevers chills or sweats. Nonsmoker. Rare alcohol use. Lives independently in a town home. Has been in contact with her sons. Surgical history includes colon resection in 2010 for diverticulitis. Recent hysterectomy in September 2023 for postmenopausal bleeding. There was a question whether she had an abdominal surgical procedure in 2005 however she thinks this might have been for her hand. Review of Systems Narrative: REVIEW OF SYSTEMS: Complete review of systems performed and negative unless otherwise stated in HPI or below. PFSH PFS Medical History Urinary tract infection ?N39.0 - Urinary tract infection, site not specified (ICD-10) Hx of eczema ?Z87.2 - Personal history of diseases of the skin and subcutaneous tissue (ICD-10) Seasonal allergies ?J30.2 - Other seasonal allergic rhinitis (ICD-10) History of anxiety ?Z86.59 - Personal history of other mental and behavioral disorders (ICD-10) History of colon polyps ?Z86.010 - Personal history of colonic polyps (ICD-10) History of depression ?Z86.59 - Personal history of other mental and behavioral disorders (ICD-10) History of multinodular goiter ?Z86.39 - Personal history of other endocrine, nutritional and metabolic disease (ICD-10) Surgical History History of D&C ?Z98.890 - Other specified postprocedural states (ICD-10) History of colposcopy ?Z98.890 - Other specified postprocedural states (ICD-10) History of colectomy ?Z90.49 - Acquired absence of other specified parts of digestive tract (ICD- 10) History of right knee surgery ?Z98.890 - Other specified postprocedural states (ICD-10) H/O bilateral cataract extraction ?Z98.41 - Cataract extraction status, right eye (ICD-10) ?Z98.42 - Cataract extraction status, left eye (ICD-10) History of surgery on right wrist ?Z98.890 - Other specified postprocedural states (ICD-10) History of tubal ligation ?Z98.51 - Tubal ligation status (ICD-10) History of thyroidectomy ?E89.0 - Postprocedural hypothyroidism (ICD-10) Family History Father Ataxia Mother Colon cancer, Onset Age: 26 Social History Narrative: Retired. Non smoker, rare alcohol use. No illicit drug use. 3 children. What is your current living situation?: I presently have a place to live Problems where you live: no known problems Problems where you live details: n/a In the past 12 months, utilities in danger of being shut off: no In past 12 months, lack of transportation kept you from medical appts, meetings, work, or getting things needed for daily living: no In the past 12 mos, have been you worried that your food would run out before you had money to buy more?: never true In the past 12 mos, the food you bought just didn't last and you didn't have money to buy more?: never true Smoking Status: Never smoker Do you use any of these nicotine containing products: None How often do you have a drink containing alcohol: monthly or less Alcohol type: wine How many standard drinks containing alcohol do you have on a typical day: 1 or 2 How often do you have six or more drinks on one occasion: Never AUDIT-C Alcohol total score: 1 Non-prescribed substance use: marijuana (any form) Non-prescribed substance use details: CBD oil Caffeine: No How often does anyone, including family, friends and others, physically hurt you : never How often does anyone, including family, friends and others, insult or talk down to you: never How often does anyone, including family, friends and others, threaten you with harm: never How often does anyone, including family, friends and others, scream or curse at you: never Are you using contraception or practicing any form of control: No service: No Meds Home Medications and Allergies Home Medications Medication Instructions Recorded Confirmed Type levothyroxine 100 mcg tablet 100 mcg PO DAILY 10/09/23 11/21/23 History buspirone 5 mg tablet 5 mg PO BID 11/21/23 11/21/23 History estradiol 0.01% (0.1 mg/gram) vaginal 11/21/23 History vaginal cream Allergies Allergy/AdvReac Type Severity Reaction Status Date / Time aspirin Allergy Verified 11/21/23 15:44 bacitracin Allergy Verified 11/21/23 15:44 chlorhexidine Allergy Verified 11/21/23 15:44 [From ChloraPrep Clear] erythromycin base Allergy Verified 11/21/23 15:44 hydrocodone [From Vicodin] Allergy Verified 11/21/23 15:44 isopropyl alcohol Allergy Verified 11/21/23 15:44 [From ChloraPrep Clear] ketorolac [From Toradol] Allergy Verified 11/21/23 15:44 NSAIDS (Non-Steroidal Allergy Verified 11/21/23 15:44 Anti-Inflamma sulfamethoxazole Allergy Verified 11/21/23 15:44 [From Sulfamethoxazole-Trimethoprim] trimethoprim Allergy Verified 11/21/23 15:44 [From Sulfamethoxazole-Trimethoprim] Exam Narrative: Exam Narrative: PHYSICAL EXAM General: Pleasant, conversant, NAD HEENT: Normocephalic, atraumatic, sclera white, EOMI, oral mucosa moist Cardiovascular: RRR, S1S2. No pitting edema Pulmonary: CTA bilaterally without rhonchi, rales, expiratory wheezes. No dyspnea Abdominal: Soft, nondistended, mild tenderness suprapubic, currently nontender over mid epigastric/upper abdomen, no guarding Neurological: Alert, answering questions appropriately, cranial nerves intact, no focal findings Extremities: No gross joint deformity or swelling. AROMI. Neurovascularly inta ct Skin: Warm, dry. Const: Vital Signs, click to edit/add: Vital Signs - 24 hr 11/21/23 14:51 11/21/23 15:46 11/21/23 16:15 Temperature 99.1 F Pulse Rate Pulse Rate [Pulse Oximeter] 80 67 Respiratory Rate 28 H Blood Pressure [Ri ght Upper Arm] 122/105 H 117/67 Pulse Oximetry 100 100 97 Oxygen Delivery Me thod Room Air Room Air Nasal Cannula Oxygen Flow Rate 1 11/21/23 16:25 11/21/23 16:40 11/21/23 17:00 Temperature Pulse Rate 64 66 67 Pulse Rate [Pulse Oximeter] Respiratory Rate Blood Pressure [Ri ght Upper Arm] Pulse Oximetry 98 96 98 Oxygen Delivery Me thod Nasal Cannula Nasal Cannula Nasal Cannula Oxygen Flow Rate 1 1 1 Hospitalist - H&P: Result Labs Labs: Short CBC 11/21/23 Range/Units 15:17 WBC 7.39 (4.50-11.00) K/uL Hgb 14.0 (12.0-16.0) gm/dL Hct 42.3 (33.0-51.0) % Plt Count 237 (140-440) K/uL BMP 11/21/23 15:17 Sodium 139 Potassium 3.5 L Chloride 106 Carbon Dioxide 25 BUN 15 Creatinine 0.6 Glucose 95 Calcium 9.7 Liver Function 11/21/23 Range/Units 15:17 Total Bilirubin 0.3 (0.1-1.5) mg/dL AST 23 (12-35) U/L ALT 22 (4-35) U/L Alkaline Phosphatase 86 (40-150) U/L Albumin 4.4 (3.3-5.0) g/dL Imaging CT scan - abdomen: Attestation: I have reviewed the pertinent imaging results. Radiologist's impression: CT abdomen/pelvis with IV contrast, 71 mL Isovue 370 Comparison: None Findings: Lower thorax: The heart is normal in size. No focal airspace consolidation, pleural effusion, or pneumothorax. No suspicious pulmonary nodules or masses. Abdomen/pelvis: The liver, gallbladder and biliary system, spleen, pancreas, and bilateral adrenal glands are within normal limits. Small splenule near the splenic hilum and multiple calcified granulomas throughout the spleen, likely sequela of remote granulomatous disease. The kidneys are normal in size and perfused in a normal fashion. No suspicious enhancing renal masses or lesions. Well-circumscribed low-density cystic lesions in the left kidney, likely benign cysts. There are few nonobstructing renal calculi at the lower poles bilaterally. There is no hydroureteronephrosis. The bladder is unremarkable. Status post hysterectomy. No suspicious adnexal lesions. Small hiatal hernia. There are some distended loops of small bowel measuring up to approximately 3 centimeter seen in the right abdomen with focal transition point seen within the right midline pelvis (series number 4, image 69). The appendix is normal. Moderate to large volume stool seen throughout the colon. Scattered colonic diverticula without CT evidence of acute diverticulitis. Colocolonic anastomosis is seen in the distal sigmoid colon. Trace free fluid in the dependent aspect of the pelvis. No free air. No abscess. The vasculature is within normal limits. Soft tissue/musculoskeletal: Tiny hiatal hernia. No acute fracture or malalignment. There are some degenerative changes throughout the spine. Impression: 1. There are some mildly distended loops of small bowel measuring up to approximately 3 centimeter seen in the right abdomen with focal transition point seen within the right midline pelvis (series number 4, image 69). Findings are concerning for partial small bowel obstruction, which may be secondary to adhesions. Recommend consultation with surgery. 2. Trace free fluid in the dependent aspect of the pelvis. No free air. 3. Additional incidental findings as detailed above. Assessment and Plan Assessment and plan (1) Small bowel obstruction: Problem comment: CT confirms mildly distended loops of small bowel measuring up to approximately 3 cm seen in the right abdomen with focal transition point seen within the right midline pelvis. History of previous abdominal surgeries 2010 and 2023. Labs unremarkable. UA unremarkable Nausea without vomiting ED provider discussed with Dr. Byrd, General Surgery, recommending admission with conservative management. NGT if worsening pain, nausea, vomiting NPO, okay for ice chips, IVF Pain and nausea management as needed General surgery consult in the morning Status: Acute (2) Hiatal hernia: Problem comment: Incidental finding Status: Acute (3) Kidney cysts: Problem comment: Incidental finding Status: Acute (4) Anxiety: Problem comment: Continue buspirone Status: Chronic (5) Hypothyroidism: Problem comment: Continue levothyroxine Status: Chronic Total Time Spent Total Time Spent: Total time spent caring for the patient today was 60 minutes. This includes charli e spent for the visit reviewing the chart, time spent during the visit, time spent after the visit and documentation and planning in coordination of care.
[2023-11-22] MEDS: ACETAMINOPHEN 325 MG TABLET PO ×3 (01:39→16:39)
[2023-11-22] MEDS: 0.9 % SODIUM CHLORIDE 1000 ml 1,000 ML 125 ML IV ×3 (01:39→17:38)
[2023-11-22] MEDS: ONDANSETRON 2 MG/ML inj 4 MG IVP ×2 (01:55→06:01)
[2023-11-22 02:35] VITALS: BP 107/62; PULSE 61; RESP 20; TEMP 37.1; O2SAT 97
--- NOTE | 2023-11-22 05:07 | PC.NURSE ---
Shift note: Pt continue to complain of nausea, abdominal pain and headache. Zofran and Tylenol were given and appeared effective. Active bowel sound, passed gas but no BM tonight. Nurse put walker in patient's room because nurse observed that pt was not steady when ambulating. Vitally stable.
[2023-11-22] MEDS: SODIUM CHLORIDE 0.9 % (FLUSH) 10 ML SYRINGE 5 ML IVF (06:01)
[2023-11-22 06:26] LABS: Hematocrit 41.6 % (33.0-51.0); Hemoglobin* 13.3 gm/dL (12.0-16.0); Mean Corpuscular HGB Conc 32 gm/dL (32-36); Mean Corpuscular Hemoglobin 31 pg (26-34); Mean Corpuscular Volume 98 fL (80-100); Platelet Count* 220 K/uL (140-440); Red Blood Count 4.24 m/uL (4.00-5.20); White Blood Count* 7.73 K/uL (4.50-11.00)
[2023-11-22] MEDS: LEVOTHYROXINE 100 MCG TABLET PO (06:31)
[2023-11-22 06:43] LABS: Slide Review Reflex No
[2023-11-22 06:44] LABS: Albumin* 3.7 g/dL (3.3-5.0); Chloride* 106 mmol/L (96-114); Sodium* 138 mmol/L (135-149)
[2023-11-22 06:47] LABS: Alanine Aminotransferase* 19 U/L (4-35); Alkaline Phosphatase* 71 U/L (40-150); Anion Gap 5 mEq/L (7-15); Aspartate Amino Transferase* 21 U/L (12-35); Bilirubin Total* 0.4 mg/dL (0.1-1.5); Blood Urea Nitrogen* 13 mg/dL (7-30); Carbon Dioxide* 27 mmol/L (20-32); Creatinine* 0.6 mg/dL (0.5-1.5); Est. Creatinine Clearance* 40.81; Estimated Glomerular Filt Rate 96 ml/min; Glucose* 107 mg/dL (60-115); Total Protein* 6.3 g/dL (6.0-8.3)
[2023-11-22 06:48] LABS: Calcium* 8.5 mg/dL (8.4-10.6)
[2023-11-22 08:59] VITALS: BP 102/69; PULSE 63; RESP 20; TEMP 36.9; O2SAT 97
[2023-11-22 11:00] VITALS: BP 104/61; PULSE 62; RESP 16; O2SAT 96
[2023-11-22 15:00] VITALS: BP 113/64; PULSE 63; RESP 16; O2SAT 95
--- NOTE | 2023-11-22 15:21 | P.IMPN_ITS ---
Progress Note: A&P Assessment and plan (1) Small bowel obstruction: Problem details: 2 previous occurences, needed NG in previous experience CT confirms mildly distended loops of small bowel measuring up to approximately 3 cm seen in the right abdomen with focal transition point seen within the right midline pelvis. History of previous abdominal surgeries 2010 and 2023. Labs unremarkable. UA unremarkable Nausea without vomiting NGT if worsening pain, nausea, vomiting NPO, okay for ice chips, IVF Pain and nausea management as needed General surgery to see if needed Status: Acute (2) Hypothyroidism: Problem details: Continue levothyroxine Status: Chronic (3) Anxiety: Problem details: Continue buspirone Status: Chronic (4) GERD (gastroesophageal reflux disease): Status: Acute Subjective Date Seen: 11/22/23 Interval history: Daily Progress Note - Hospital Medicine Day #: 2 CC: SBO, first. hx of colectomy, hysterectomy OVERNIGHT UPDATES FROM STAFF & MED, LAB, IMAGING UPDATES passed gas overnight; feels less pain. up walking. minimal nausea. labs are unremarkable. reviewed and imaging from admission reviewed. Objective: alert, insightful. Vitals: see above Lungs: Clear. Cardiac: S1S2. abdomen: soft. Disposition/Potential discharge - Likely to return to previous living situation. Today I spent 50minutes seeing the patient, reviewing Expanse and EPIC notes/diagnostics, discussing the care plan with our care time that includes social work, PT/OT, pharmacy, RT, care home and documenting my impressions and plan in the medical record. Exam Const: Vital Signs, click to edit/add: Vital Signs - 24 hr 11/21/23 15:46 11/21/23 16:15 11/21/23 16:25 Temperature Pulse Rate 64 Pulse Rate [Pulse Oximeter] 67 Respiratory Rate Blood Pressure [Ri ght Arm] Blood Pressure [Ri ght Upper Arm] 117/67 Pulse Oximetry 100 97 98 Oxygen Delivery Me thod Room Air Nasal Cannula Nasal Cannula Oxygen Flow Rate 1 1 11/21/23 16:40 11/21/23 17:00 11/21/23 17:52 Temperature Pulse Rate 66 67 Pulse Rate [Pulse Oximeter] Respiratory Rate 22 Blood Pressure [Ri ght Arm] Blood Pressure [Ri ght Upper Arm] Pulse Oximetry 96 98 96 Oxygen Delivery Me thod Nasal Cannula Nasal Cannula Nasal Cannula Oxygen Flow Rate 1 1 11/21/23 19:01 11/21/23 19:01 11/21/23 23:00 Temperature 98.8 F 98.8 F Pulse Rate Pulse Rate [Pulse Oximeter] 63 60 Respiratory Rate 22 20 20 Blood Pressure [Ri ght Arm] 132/72 120/69 Blood Pressure [Ri ght Upper Arm] Pulse Oximetry 96 96 97 Oxygen Delivery Me thod Room Air Room Air Room Air Oxygen Flow Rate 11/22/23 02:35 11/22/23 08:59 11/22/23 11:00 Temperature 98.8 F 98.5 F Pulse Rate Pulse Rate [Pulse Oximeter] 61 63 62 Respiratory Rate 20 20 16 Blood Pressure [Ri ght Arm] 107/62 102/69 104/61 Blood Pressure [Ri ght Upper Arm] Pulse Oximetry 97 97 96 Oxygen Delivery Me thod Room Air Room Air Room Air Oxygen Flow Rate Labs Labs: Laboratory Results - last 24 hr 11/21/23 11/22/23 15:17 05:57 WBC 7.39 7.73 RBC 4.53 4.24 Hgb 14.0 13.3 Hct 42.3 41.6 MCV 93 98 MCH 31 31 MCHC 33 32 RDW Coeff of Ina 13.1 Plt Count 237 220 Neut % (Auto) 49.7 Lymph % (Auto) 40.6 [place] % (Auto) 6.8 Eos % (Auto) 2.4 Baso % (Auto) 0.4 Neut # (Auto) 3.67 Lymph # (Auto) 3.00 H [place] # (Auto) 0.50 Eos # (Auto) 0.18 Baso # (Auto) 0.03 Abs Immat Gran (auto) 0.01 Imm/Tot Granulo (auto) 0.1 Sodium 139 138 Potassium 3.5 L 4.0 Chloride 106 106 Carbon Dioxide 25 27 Anion Gap 8 5 L BUN 15 13 Creatinine 0.6 0.6 Estimated Creat Clear 40.81 40.81 Estimated GFR 96 96 Glucose 95 107 Lactate 1.7 Calcium 9.7 8.5 Total Bilirubin 0.3 0.4 AST 23 21 ALT 22 19 Alkaline Phosphatase 86 71 Total Protein 7.1 6.3 Albumin 4.4 3.7 Lipase 109 POC Creatinine 0.7
--- NOTE | 2023-11-22 19:01 | PC.NURSE ---
End of shift [id number] ? Pt alert, oriented, cooperative. Pt up independently in room and observed to walk the hallways. Tolerating RA, NPO diet. Pt denies pain in abdomen and reports passing gas. Pt reports headache pain rated as 7/10. Medication given per MAR with pt indicating little to no change in condition. RN offered to provide cool wash cloth for her forehead, pt refused. RN did close window covering per pt request. Family at bedside, pt appears to be resting comfortably at end of shift. ?
[2023-11-22 19:47] VITALS: BP 128/68; PULSE 76; RESP 18; TEMP 37; O2SAT 96
[2023-11-22 23:00] VITALS: PULSE 70; RESP 16
[2023-11-23] VITALS: BP 126/73; PULSE 70; RESP 16; TEMP 37.1; O2SAT 98
[2023-11-23] MEDS: ACETAMINOPHEN 325 MG TABLET PO (00:09)
[2023-11-23] MEDS: 0.9 % SODIUM CHLORIDE 1000 ml 1,000 ML 125 ML IV ×2 (00:10→09:05)
[2023-11-23 03:31] VITALS: BP 122/83; PULSE 60; RESP 16; TEMP 36.6; O2SAT 96
[2023-11-23] MEDS: LEVOTHYROXINE 100 MCG TABLET PO (06:22)
--- NOTE | 2023-11-23 06:40 | PC.NURSE ---
End of shift note [id number]: Pt alert & oriented x 4 and able to make needs known. She transfers/ambulates independently both in room and in hallway. Pt continues on IV NS at 125 mL/hr per order. PRN Tylenol given for c/o 8/10 chronic?headache pain which was effective upon followup. VSS and pt has been afebrile. Pt tolerating CL diet and denies nausea when asked. No vomiting noted this shift. Pt states she is passing gas when asked and had a moderate soft/formed BM noted this morning. Pt has been continent of bowel and bladder throughout the shift. Pt has been refusing scheduled Buspar and Lovenox though com writer did provide education regarding Lovenox being ordered by provider.
[2023-11-23 07:00] VITALS: BP 103/63; PULSE 65; RESP 16; TEMP 36.4; O2SAT 96
[2023-11-23 07:07] LABS: Hematocrit 39.3 % (33.0-51.0); Hemoglobin* 12.7 gm/dL (12.0-16.0); Mean Corpuscular HGB Conc 32 gm/dL (32-36); Mean Corpuscular Hemoglobin 31 pg (26-34); Mean Corpuscular Volume 97 fL (80-100); Platelet Count* 196 K/uL (140-440); Red Blood Count 4.04 m/uL (4.00-5.20); White Blood Count* 4.99 K/uL (4.50-11.00)
[2023-11-23 07:20] LABS: Chloride* 110 mmol/L (96-114)
[2023-11-23 07:21] LABS: Albumin* 3.6 g/dL (3.3-5.0); Potassium* 3.4 mmol/L (3.6-5.1); Sodium* 140 mmol/L (135-149)
[2023-11-23 07:24] LABS: Alanine Aminotransferase* 17 U/L (4-35); Alkaline Phosphatase* 68 U/L (40-150); Anion Gap 4 mEq/L (7-15); Aspartate Amino Transferase* 19 U/L (12-35); Bilirubin Total* 0.4 mg/dL (0.1-1.5); Blood Urea Nitrogen* 8 mg/dL (7-30); Carbon Dioxide* 26 mmol/L (20-32); Creatinine* 0.6 mg/dL (0.5-1.5); Est. Creatinine Clearance* 40.81; Estimated Glomerular Filt Rate 96 ml/min; Glucose* 85 mg/dL (60-115); Total Protein* 5.9 g/dL (6.0-8.3)
[2023-11-23 07:25] LABS: Calcium* 8.1 mg/dL (8.4-10.6)
[2023-11-23 07:32] LABS: Slide Review Reflex No
[2023-11-23 11:00] VITALS: BP 125/76; PULSE 60; RESP 16; TEMP 36.9; O2SAT 97
--- NOTE | 2023-11-23 12:57 | PC.NURSE ---
End of care nursing note: Pt is A&O x4, afebrile and VSS today. She is independent with mobility and frequently walks the halls. Pt denies having any pain, nausea or SOB. She reports having a moderate, soft BM earlier this morning with no noted complications. Pt tolerated clear liquid diet with no pain or nausae. PIV in left AC SL and discontinued, catheter intact.
--- NOTE | 2023-11-23 15:55 | PM.DS1 ---
DS: Providers Provider Date Seen: 11/23/23 Date of admission: 11/22/23 11:23 Primary care physician: Brittany Navarro APRN, [employer] Admitting Clinician: Julia Samayoa MD Consults: 11/22/23 06:00 Consult to Physician [CONS] Routine Comment: Consulting Provider: Job Byrd Has provider been notified: Yes Attending Physician on discharge: Julia Samayoa MD Date of Discharge: 11/23/23 DS: Diagnosis Discharge Diagnosis (1) Small bowel obstruction: Status: Acute Problem details: Resolved; tolerating clear liquids, has had a BM and is passing gas. no pain. CT confirms mildly distended loops of small bowel measuring up to approximately 3 cm seen in the right abdomen with focal transition point seen within the right (2) Anxiety: Status: Chronic Problem details: Continue buspirone (3) GERD (gastroesophageal reflux disease): Status: Acute (4) Hypothyroidism: Status: Chronic Problem details: Continue levothyroxine DS: Summary Hospital Course Hospital Course: FINAL DIAGNOSIS/FOLLOW UP ISSUES: none BRIEF HOSPITAL COURSE: Patient was admitted for 2 days. Synopsis of acute inpatient issues are outlined above. Chronic medical conditions with notable findings outlined above. patient had a quick resolution of her abdominal pain and obstructive symptoms. Within 24 hours she was passing gas and within 36 hours had a bowel movement. She never needed an NG tube. General surgery did not even consult as she was improving. Follow-up with PCP at regular scheduled interval. DISCHARGE MEDICATIONS: See Reconciled list - SIGNIFICANT CHANGES: no changes Specific instructions to the patient and follow-up are outlined below. REVIEW OF SYSTEMS No new chest pain or dyspnea Pain controlled No voiding difficulties Tolerating diet challenge PHYSICAL EXAM: CONSTITUTIONAL: No acute distress. Resting comfortably. VITAL SIGNS: see record. HEENT: Normocephalic, atraumatic. PERRL, EOMI, conjunctivae pink, no scleral icterus. Ears and nose externally normal. Pharynx normal. NECK: No JVD. No carotid bruit, no thyromegaly, no adenopathy. CHEST: Clear to auscultation bilaterally. HEART: S1 and S2 normal. Edema ABDOMEN: Soft, nontender. Normal bowel sounds. MUSCULOSKELETAL: No gross joint deformity or swelling. NEURO: Cranial nerves intact. Grossly intact. No asymmetric findings. SKIN: No rashes, petechiae, concerning changes PSYCHIATRIC: Mood euthymic. DISPOSITION: Home with spouse Time spent on discharge 37 minutes. Status at Discharge Functional status at discharge: independent ambulation Overall status at discharge: patient is back to baseline Time Spent with Patient Time attestation: Total time spent providing and/or coordinating discharge services: Time spent: Greater than 30 minutes Exam Const: Vital Signs, click to edit/add: Vital Signs - 24 hr 11/22/23 19:47 11/22/23 23:00 11/23/23 00:00 Temperature 98.6 F 98.7 F Pulse Rate [Pulse Oximeter] 76 70 70 Respiratory Rate 18 16 16 Blood Pressure [Ri ght Arm] 128/68 126/73 Pulse Oximetry 96 98 Oxygen Delivery Me thod Room Air Room Air 11/23/23 03:31 11/23/23 07:00 11/23/23 07:00 Temperature 97.9 F 97.6 F Pulse Rate [Pulse Oximeter] 60 65 65 Respiratory Rate 16 16 16 Blood Pressure [Ri ght Arm] 122/83 103/63 Pulse Oximetry 96 96 Oxygen Delivery Me thod Room Air Room Air 11/23/23 11:00 Temperature 98.5 F Pulse Rate [Pulse Oximeter] 60 Respiratory Rate 16 Blood Pressure [Ri ght Arm] 125/76 Pulse Oximetry 97 Oxygen Delivery Me thod Room Air DS: Data Data Completed and Pending Labs on day of discharge: Labs from last 24 hours 11/23/23 06:20 WBC 4.99 RBC 4.04 Hgb 12.7 Hct 39.3 MCV 97 MCH 31 MCHC 32 Plt Count 196 Sodium 140 Potassium 3.4 L Chloride 110 Carbon Dioxide 26 Anion Gap 4 L BUN 8 Creatinine 0.6 Estimated Creat Clear 40.81 Estimated GFR 96 Glucose 85 Calcium 8.1 L Total Bilirubin 0.4 AST 19 ALT 17 Alkaline Phosphatase 68 Total Protein 5.9 L Albumin 3.6 Discharge Plan Discharge Disposition: Home, Self-Care Date of Admission: 11/22/23 11:23 Attending Provider on Discharge: Julia Samayoa Consulting Providers: Job Byrd Primary Care Provider: Brittany Navarro Condition: Improved Anticipated Discharge Date/Time: 11/23/23 10:58 Discharge Medications: Continued buspirone 5 mg tablet 5 mg PO BID estradiol 0.01 % (0.1 mg/gram) cream vaginal levothyroxine 100 mcg tablet 100 mcg PO DAILY Discharge Orders: Discharge Order (Routine); Ordered 11/23/23 Ordered By: Julia Samayoa Patient Education: Bowel Obstruction (DC) Activity Level: Activity as Tolerated Diet Detail: Go slow with a BRAT type of diet. advance slowly back to normal. Follow Up Appointments: Brittany Navarro APRN, [employer] HELPER [Primary Care Provider] - (Keep your normal schedule. No significant reasons to have hospital follow-up. ) Forms: [employer] Info Instructions
== END 2023-11-23 12:47 | disposition home or self-care (01) | DRG 390 ==
LOC: ED 16:51 → MEDSURG 17:15
PROVIDERS: Physician Assistant; Admitting Provider Family Medicine; Emergency Provider Family Medicine; PCP Nurse Practitioner Family; Visit Provider Family Medicine
DX: K56.609 Unspecified intestinal obstruction, unspecified as to partial versus complete obstruction (principal); F41.9 Anxiety disorder, unspecified; E03.9 Hypothyroidism, unspecified; K21.9 Gastro-esophageal reflux disease without esophagitis; K44.9 Diaphragmatic hernia without obstruction or gangrene; N28.1 Cyst of kidney, acquired
CPT/HCPCS: 36415; 74177; 80053; 82565; 83605; 83690; 85025; 85027; 94761; 99284; 99285; G0378; A9270; J2270; J2405; J7030; Q9967

== ENCOUNTER 2024-01-22 14:27 | Outpatient (CLI) | payer MEDICARE, SELFPAY | END 2024-01-22 14:28 | disposition home or self-care (01) | PROVIDERS: PCP Nurse Practitioner Family; Visit Provider Nurse Practitioner Family | DX: R53.83 Other fatigue (principal); E03.9 Hypothyroidism, unspecified | CPT/HCPCS: 80053; 82306; 82728; 83970; 84439; 84443; 85025 ==

== ENCOUNTER 2024-03-12 20:05 | Outpatient (CLI) | payer MEDICARE, SELFPAY ==
--- NOTE | 2024-04-08 10:00 | W.PM.SLEEP ---
Sleep Study Details Details Interpreting Provider: Perla Date of Sleep Study: 03/12/24 Sleep Study Details: STUDY TYPE:? Hospital-based, attended, CPAP titration ? BMI:? 25.7 ORDERING PROVIDER:? Ramon INDICATION:? Concern about sleep apnea ? SLEEP SUMMARY:? Total sleep time 319 minutes RESPIRATORY SUMMARY:? AHI 23.6. Note diagnostic portion of study was done in the nonsupine position. The nonsupine REM AHI was 60 CPAP titration was performed to a pressure of 8 which included 66.5 minutes of REM stage sleep and decreased AHI to 0.5. However this was in the nonsupine position. PERIODIC LIMB MOVEMENTS OF SLEEP:? Pretreatment 0, post treatment index 41.7, index with arousal 1 CARDIAC:? Awake 62 asleep 60. PVCs were noted IMPRESSION:? Moderate obstructive sleep apnea with significant REM dependency. CPAP titration was successful at a pressure of 8 in the nonsupine position. RECOMMENDATION: Recommend AutoSet CPAP pressure 5-17.
== END 2024-03-12 20:06 | disposition home or self-care (01) ==
LOC: SLEEP 20:05
PROVIDERS: PCP Nurse Practitioner Family; Visit Provider Nurse Practitioner Family
DX: G47.33 Obstructive sleep apnea (adult) (pediatric) (principal)
CPT/HCPCS: 95811

== ENCOUNTER 2024-03-19 13:50 | Outpatient (CLI) | payer MEDICARE, SELFPAY | END 2024-03-19 13:51 | disposition home or self-care (01) | LOC: NFLDREF 03-23 08:52 | PROVIDERS: PCP Nurse Practitioner Family; Referring Provider Nurse Practitioner Family; Visit Provider Nurse Practitioner Family | DX: E03.9 Hypothyroidism, unspecified (principal) | CPT/HCPCS: 84443 ==

== ENCOUNTER 2024-07-01 11:52 | Outpatient (CLI) | payer MEDICARE, SELFPAY ==
--- OUTSIDE RECORDS SUMMARY | 2024-07-05 03:11 | XMS_ITS | Encounter Summary ---
Author Organization [place] Address [facility] [place] [address] Care Team Providers Care Epic Director Name Role Phone Brittany Barrera MD Primary Care Provide r Maryjo Tinoco MD Primary Care Provider [phone] Brittany Navarro NP Primary Care Provider [phone] Encounter Details Date Type Department Care Team (Late st Contact Info) Description 06/25/2008 [facility] Medical Advice Initial Department [facility] Social History Tobacco Use Types Packs/Day Years Used Date Smoking Tobacco: Never Alcohol Use Standard Drinks/Week Comments Yes 0 (1 standard drink = 0.6 oz pur e alcohol) occ. 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
--- OUTSIDE RECORDS SUMMARY | 2024-07-05 03:11 | XMS_ITS | Encounter Summary ---
Author Organization [place] Address [facility] [place] [address] Care Team Providers Care Roll Scale Man Name Role Phone Brittany Barrera MD Primary Care Provide r Maryjo Tinoco MD Primary Care Provider Brittany Navarro NP Primary Care Provider Encounter Details Date Type Department Care Team (Late st Contact Info) Description 12/20/2010 [facility] [place] [address] [address] [facility] Social History Tobacco Use Types Packs/Day Years Used Date Smoking Tobacco: Never Alcohol Use Standard Drinks/Week Comments Yes 0 (1 standard drink = 0.6 oz pur e alcohol) occ. 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
--- OUTSIDE RECORDS SUMMARY | 2024-07-05 03:11 | XMS_ITS | Encounter Summary ---
Author Organization [place] Address [facility] [place] [address] Care Team Providers Care Dairy Hand Name Role Phone Brittany Barrera MD Primary Care Provide r Maryjo Tinoco MD Primary Care Provider [phone] Brittany Navarro NP Primary Care Provider Encounter Details Date Type Department Care Team (Late st Contact Info) Description 06/26/2007 [facility] Medical Advice Initial Department [facility] Social History Tobacco Use Types Packs/Day Years Used Date Smoking Tobacco: Never Alcohol Use Standard Drinks/Week Comments Yes 0 (1 standard drink = 0.6 oz pur e alcohol) occ. 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
--- OUTSIDE RECORDS SUMMARY | 2024-07-05 03:11 | XMS_ITS | Encounter Summary ---
Author Organization [place] Address [address] [place] [address]. [place] [address] Care Team Providers Care Risk Management Intern Name Role Phone Brittayn Navarro NP Primary Care Provider Encounter Details Date Type Department Care Team (Latest Contact Info) Description 06/12/2024 Travel Social History Tobacco Use Types Packs/Day Years Used Date Smoking Tobacco: Never Alcohol Use Standard Drinks/Week Comments Yes 0 (1 standard drink = 0.6 oz pure alcohol) Alcoholic Drinks/day: 1 drink per month Adolescent Education Answer Date Record ed Getting School Help Needed Not on file 05/21 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
--- OUTSIDE RECORDS SUMMARY | 2024-07-05 03:11 | XMS_ITS | Encounter Summary ---
Author Organization [place] Address [address] [place] [address]. [place] [address] Care Team Providers Care Inspector Metal Can Name Role Phone Brittany Barrera MD Primary Care Provide r Maryjo Tinoco MD Primary Care Provider Brittany Navarro NP Primary Care Provider Encounter Details Date Type Department Care Team (Late st Contact Info) Description 02/21/2008 [facility] [place] [address] [place] [address] William Locke MD [address] [place], [place] [address] [address] Social History Tobacco Use Types Packs/Day Years Used Date Smoking Tobacco: Never Alcohol Use Standard Drinks/Week Comments Yes 0 (1 standard drink = 0.6 oz pur e alcohol) occ. 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
--- OUTSIDE RECORDS SUMMARY | 2024-07-05 03:11 | XMS_ITS | Encounter Summary ---
Author Organization [place] Address [address] [place] [address]. 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
--- OUTSIDE RECORDS SUMMARY | 2024-07-05 03:11 | XMS_ITS | Encounter Summary ---
Author Organization [place] Address [facility] [place] [address] Care Team Providers Care Fern Cutter Name Role Phone Brittany Barrera MD Primary Care Provide r Maryjo Tinoco MD Primary Care Provider Brittany Navarro NP Primary Care Provider Encounter Details Date Type Department Care Team (Late st Contact Info) Description 12/28/2010 [facility] Medical Advice [address] [address] [facility] Social History Tobacco Use Types Packs/Day Years Used Date Smoking Tobacco: Never Alcohol Use Standard Drinks/Week Comments Yes 0 (1 standard drink = 0.6 oz pur e alcohol) occ. 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
--- OUTSIDE RECORDS SUMMARY | 2024-07-05 03:11 | XMS_ITS | Referral Summary ---
Author Organization [place] Address [address] [place] [address] Care Team Providers Care Wound Specialist Name Role Phone Brittany Navarro MARKETING STRATEGY LEAD Primary Care Provider Encounters Date Type Department Care Team Description 06/17/2024 Travel 06/17/2024 9:00 AM GUT PULLER - 06/17/2024 11:59 PM [facility] Hospital Encounter [facility] [address] [facility], [address] [place] [address] Brittany Navarro NP Visit for screening mammogram Discharge Disposition: Home or Self Care 06/12/2024 Travel from Last 3 Months Allergies Active Allergy Reactions Criticality Noted Date Comments Aspirin 11/20/2002 hives Erythromycin 11/20/2002 GI upset Lactose Intolerance (Gi) 05/15/2006 Nsaids 11/20/2002 hives, toradol Medications MULTIVITAMINS OR TABS 1 tab po qd 3 Active CALCIUM 500 500 MG OR TABS 1500mg daily 7 Active ZYRTEC 10 MG OR TABSIndications:Al lergic rhinitis, cause unspecified 1 TABLET EVERY OTHER DAY 30 prn 9 Active TRIAMCINOLONE ACETONIDE 0.1 % EX CREAIndications:Co ntact dermatitis and other eczema, due to unspecified cause APPLY TWICE DAILY DIRECTED 30g 1 9 Active VITAMIN D 1000 UNIT OR TABS 1 TABLET DAILY 30 0 0 Active levothyroxine (SYNTHROID) 112 MCG tabletIndications: Hypothyroidism Take 1 tablet by mouth daily. / DR King 1 Active [place]-3 Fatty Acids (OMEGA 3 PO)Indications:Lon or depressive disorder, recurrent episode, in full remission (H) Take by mouth. Active conjugated estrogens (PREMARIN) vaginal creamIndications:A trophic vulvovaginitis Place 0.5 g vaginally twice a week. 42.5 g 12 2 Active buPROPion (WELLBUTRIN XL) 150 MG 24 hr tabletIndications: Major depressive disorder, recurrent episode, in full remission (H) TAKE 2 TABLETS BY MOUTH EVERY MORNING 180 tablet 1 4 Active Active Problems Problem Noted Date Diagnosed Date Major depressive disorder, r ecurrent episode, in full remission/ SAD 05/13/2012 Living will, counseling/discussion 02/20/2011 Overview (02/20/2011): Advance Directive Problem List Overview: Name Relationship Phone Primary Health Care Agent Alternative Health Care Agent Discussed advance care planning with patient; information given to patient to review. 02/20/2011 Postmenopausal atrophic vaginitis 02/20/2011 Hypothyroidism 01/05/2011 Osteopenia 09/28/2009 Overview (09/28/2009): 06/21 osteopenia L femoral neck t -1.7. LS nl -0.5. CARDIOVASCULAR SCREENING; LDL GOAL LESS THAN 160 09/22/2009 Rectocele 06/13/2007 Diverticulitis of colon 03/13/2006 Overview (05/13/2015): Problem list name updated by automated process. Provider to review Dysplasia of cervix 11/29/2004 Overview (05/13/2015): S/P LEEP 12/2004 Problem list name updated by automated process. Provider to review CHRONIC SINUS CONGESTION 07/28/2003 Overview (03/05/2013): Problem list name updated by automated process. Provider to review and confirm MENOPAUSE 07/28/2003 Resolved Problems Problem Noted Date Diagnosed Date Resolved Date Health [facility] 05/13/2012 01/28/2024 Overview (04/17/2013): State Tier Level: Tier 1 Status: n/a Executive Personal Assistant: n/a See Letters for H Care Plan Major depressive disorder, r ecurrent episode, in full remission 02/20/2011 05/13/2012 Moderate Depression 12/14/2004 02/21/20 11 Papanicolaou smear of cervix with low grade squamous intraepithelial lesion (LGSIL) 11/24/2004 11/29/2004 Non-toxic nodular goiter 07/28/200306/2011 Overview (05/13/2015): On synthroid, s/p thyroidectomy Problem list name updated by automated process. Provider to review Urticaria 04/08/2003 01/05/2011 Overview (05/13/2015): Problem list name updated by automated process. Provider to review Myalgia and myositis 04/08/2003 011 Overview (05/13/2015): Problem list name updated by automated process. Provider to review Contact dermatitis and other eczema, due to unspecified cause 04/08/2003 01/05/2011 Immunizations Name Administration Dates Next Due HEPA 03/20/2007,09/20/2006 Influenza (H1N1) 09/17/2009 Influenza (IIV3) PF 05/13/2012, 9,05/25/2008,05/21/2007,06/07/20 06,07/02/2003 TD,PF 7+ (Tenivac) 12/07/2005,08/13/1996 TDAP Vaccine (Boostrix) 05/13/2012 Social History Tobacco Use Types Packs/Day Years [...] on file Legal Sex Female 4:22 AM GUT PULLER Gender Identity Not on file Sexual Orientation Not on file Occupation Industry Job Start Date Job End Date [employer] Not on file Not on file Not on file Last Filed Vital Signs Vital Sign Reading Time Taken Comments Blood Pressure 120/80 04/02/2013 2:48 PM CDT Pulse 80 04/02/2013 2:48 PM CDT Temperature 37.1 C (98.8 F) 04/02/2013 2:48 PM CDT Respiratory Rate 12 04/02/2013 2:48 PM CDT Oxygen Saturation 96% 01/28/2010 10:57 AM CDT Inhaled Oxygen Concentration - - Weight 62.8 kg (138 lb 6.4 oz) 01/26/2016 10:32 AM CDT Height 158.8 cm (5' 2.5) 01/26/2016 10:32 AM CD T Body Mass Index 24.91 01/26/2016 10:32 AM CDT Plan of Treatment Not on file Procedures Procedure Name Priority Date/Time Associated Diagnosis Comments MA SCREENING BILATERAL W/ GA Routine 06/17/2024 9:48 AM GUT PULLER Visit for screening mammogram DX BONE DENSITY Routine 10/01/2015 8:24 AM GUT PULLER Disorder of bone, unspecified Disorder of cartilage, unspecified LIPID PROFILE Routine 09/28/2015 8:41 AM GUT PULLER ZZHC COLONOSCOPY W BIOPSY Routine 04/30/2013 SCANNING RESULTS HEPATITIS C ANTIBODY Routine 05/13/2012 9:30 AM CDT Need for hepatitis C screening test TSH Routine 05/13/2012 9:06 AM CDT Major depressive disorder, recurrent episode, in full remission/ SAD Other specified acquired hypothyroidism GLUCOSE Routine 01/12/2011 11:25 AM CDT from Last 3 Months or Most Recently Relevant to Health Maintenance Results * MA Screening Bilateral w/ Ga (06/17/2024 9:48 AM GUT PULLER) Anatomical Region Laterality Modality Breast Bilateral Mammography Impressions 06/17/2024 12:03 PM GUT PULLER IMPRESSION: ACR BI-RADS Category 1: Negative BREAST CANCER SCREENING RECOMMENDATION: Routine yearly mammography beginning at age 40 or as discussed with your provider. The results and recommendations of this examination will be communicated to the patient. Andrae Yuan MD Narrative 06/17/2024 12:03 PM GUT PULLER BILATERAL FULL FIELD DIGITAL SCREENING MAMMOGRAM WITH TOMOSYNTHESIS Performed on: 06/17/24 Compared to: 06/20/2022, 05/05/2021, and 03/17/2020 Technique: This study was evaluated with the assistance of Computer-Aided Detection. Breast Tomosynthesis was used in interpretation. Findings: There are scattered areas of fibroglandular density. There is no radiographic evidence of malignancy. Brittany Navarro NP IMG MAMMOGRAPHY ORDERABLES F inal Result * DX Hip/Pelvis/Spine (10/01/2015 8:24 AM GUT PULLER) Anatomical Region Laterality Modality Dexa Other Narrative 10/03/2015 10:31 AM GUT PULLER BONE MINERAL DENSITY BY DXA SCANNING 10/01/15 Bone densitometry was performed on your patient, and the results are summarized below; OSTEOPOROSIS RISK FACTORS: Postmenopausal status. Thyroid supplement. TREATMENT: Brief alendronate. Off for 2 years. Current calcium with vitamin D. ASSESSMENT: Bone density measurements indicate LOW BONE MASS based on the lowest bone mineral density of 0.747 g/cm2 and a T-score of -2.1 as measured at the right femoral neck. Her previous scan is not available for comparison. There is a substantial difference in measured bone density between the left and right femoral neck for unclear reasons. Positioning does seem acceptable on the right hip study. Using the WHO Fracture Risk Prediction Tool, current predicted fracture risk is moderate with a 10.8% 10 year probability of major osteoporotic fracture and 1.6% risk of hip fracture. RECOMMENDATIONS: Assure adequate calcium, vitamin D and weight bearing activity with follow up DXA in 2 to 3 yrs; sooner if there is a change in preventive measures or risk Bone densitometry was performed on your patient using our [employer] densitometer. The results are summarized and a copy of the actual scans are included for your review. In conformity with the International Society of Clinical Densitometry's most recent position statement for DXA interpretation (2007), the diagnosis will be made on the lowest measured T-score of the lumbar spine, femoral neck, total proximal femur or 33% radius. Note the change in terminology for diagnostic classification from OSTEOPENIA to LOW BONE MASS. All trending for sequential exams will be done using multiple vertebrae or the total proximal femur. If additional information is needed or if you would like to discuss the results, please do not hesitate to call me. Procedure Note Kieran Grewal - 01/16/2021 BONE MINERAL DENSITY BY DXA SCANNING 10/01/15 Bone densitometry was performed on your patient, and the results aresummarized below; OSTEOPOROSIS RISK FACTORS: Postmenopausal status. Thyroid supplement. TREATMENT: Brief alendronate. Off for 2 years. Current calcium with vitamin D. ASSESSMENT: Bone density measurements indicate LOW BONE MASS based on the lowest bonemineral density of 0.747 g/cm2 and a T-score of -2.1 as measured at theright femoral neck. Her previous scan is not available for comparison.There is a substantial difference in measured bone density between the left and right femoralneck for unclear reasons. Positioning does seem acceptable on the righthip study. Using the WHO Fracture Risk Prediction Tool, current predictedfracture risk is moderate with a 10.8% 10 year probability of major osteoporotic fracture and 1.6% risk ofhip fracture. RECOMMENDATIONS: Assure adequate calcium, vitamin D and weight bearing activity with followup DXA in 2 to 3 yrs; sooner if there is a change in preventive measuresor risk Bone densitometry was performed on your patient using our [employer] iDXAdensitometer. The results are summarized and a copy of the actual scansare included for your review. In conformity with the International Societyof Clinical Densitometry's most recent position statement for DXA interpretation (2007), the diagnosiswill be made on the lowest measured T-score of the lumbar spine, femoralneck, total proximal femur or 33% radius. Note the change in terminologyfor diagnostic classification from OSTEOPENIA to LOW BONE MASS. All trending for sequential exams will bedone using multiple vertebrae or the total proximal femur. If additionalinformation is needed or if you would like to discuss the results, pleasedo not hesitate to call me. us Xi Shi MD IMCord[facility] DEXA ORDERABLES Final Re sult * (ABNORMAL) Lipid Profile (09/28/2015 8:41 AM GUT PULLER) [facility] Cholesterol 218(H) <=200 mg/dL 09/28/2015 11:29 AM GUT PULLER [facility] Triglycerides 114 0 - 150 mg/dL 09/28/2015 11:29 AM GUT PULLER [facility] Direct Measure HDL 71 >=40 mg/dL 09/28/2015 11:29 AM GUT PULLER [facility] LDL Cholesterol Calculated 124 0 - 130 mg/dL 09/28/2015 11:29 AM GUT PULLER [facility] Blood specimen (specimen) Venipuncture / Unknown 09/28/2015 8:41 AM GUT PULLER 09/28/2015 8:41 AM GUT PULLER Xi Shi MD LAB - BLOOD ORDERABLES Final Result Performing Organization Address [facility] Co de Phone Number [facility] [address] [place] [address], [facility] [address] [place] [address] * COLONOSCOPY W BIOPSY (04/30/2013) Maryjo Tinoco MD PROCEDURES Final Result * Hepatits C antibody ([facility]) (05/13/2012 9:30 AM CDT) Pathologist [facility] HCV Antibody NON-REACTI VE NON-REACTI VE [facility] SIGNAL TO CUT OFF - [facility] 0.01 <1.00 [facility] Blood specimen (specimen) 05/13/2012 9:30 AM CDT 05/14/2012 1:25 AM CDT Narrative Resulting Agency Comment Performing Organization Information: [facility] [address] [place] [address] Aleksandar Gonzales M.D. Maryjo Tinoco MD LAB - BLOOD ORDERABLES Final R esult Performing Organization Address City/[facility] Co de Phone Number [facility] [address] [place] [address] * TSH (05/13/2012 9:06 AM CDT) TSH 1.47 0.40 - 4.50 mIU/L [facility] Blood specimen (specimen) 05/13/2012 9:06 AM CDT 05/14/2012 1:26 AM CDT Narrative Resulting Agency Comment Performing Organization Information: [facility] [address] [place] [address] Aleksandar Gonzales M.D. us Maryjo Tinoco MD LAB - BLOOD ORDERABLES Final R esult [facility] [address] [place] [address] * Glucose (01/12/2011 11:25 AM CDT) Glucose 89 60 - 99 mg/dL [facility] 01/12/2011 11:2 5 AM CDT 01/12/2011 11:40 AM CDT us Kristy Tomas MD LAB - BLOOD ORDERABLES Fi nal Result [facility] [address] [place] [address] [phone] from Last 3 Months or Most Recently Relevant to Health Maintenance Insurance [facility] MEDICARE ADVANTAGE [facility] MEDICARE ADVANTAGE OTHER Care Teams Wound Specialist Relationship Specialty Start Date End Date Brittany Navarro NP [address] [address] PCP - General 06/12/24
--- OUTSIDE RECORDS SUMMARY | 2024-07-05 03:11 | XMS_ITS | Encounter Summary ---
Author Organization [place] Address [facility] [place] [address] Care Team Providers Care Director Of Materials Management Name Role Phone Brittany Barrera MD Primary Care Provide r Maryjo Tinoco MD Primary Care Provider [phone] Brittany Navarro NP Primary Care Provider Encounter Details Date Type Department Care Team (Late st Contact Info) Description 09/22/2009 [facility] Medical Advice [address] [address] [facility] Social History Tobacco Use Types Packs/Day Years Used Date Smoking Tobacco: Never Alcohol Use Standard Drinks/Week Comments Yes 0 (1 standard drink = 0.6 oz pur e alcohol) occ. 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
--- OUTSIDE RECORDS SUMMARY | 2024-07-05 03:11 | XMS_ITS | Encounter Summary ---
Author Organization [place] Address [facility] [place] [address] Care Team Providers Care Manager Of Organizational Development Name Role Phone Brittany Barrera MD Primary Care Provide r Maryjo Tinoco MD Primary Care Provider Brittany Navarro NP Primary Care Provider Encounter Details Date Type Department Care Team (Late st Contact Info) Description 06/21/2006 [facility] [place] Advice [address] [address] [facility] Social History Tobacco Use Types Packs/Day Years Used Date Smoking Tobacco: Never Alcohol Use Standard Drinks/Week Comments Yes 0 (1 standard drink = 0.6 oz pur e alcohol) occ. 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
--- OUTSIDE RECORDS SUMMARY | 2024-07-05 03:11 | XMS_ITS | Encounter Summary ---
Author Organization [place] Address [address] [place] [address]. [place] [address] Care Team Providers Care Yoga Teacher Name Role Phone Brittany Barrera MD Primary Care Provide r Maryjo Tinoco MD Primary Care Provider [phone] Brittany Navarro NP Primary Care Provider Encounter Details Date Type Department Care Team (Late st Contact Info) Description 09/20/2007 [facility] Advice [address] [address] Georgia Smart MD [address] [place] [address] Social History Tobacco Use Types Packs/Day Years Used Date Smoking Tobacco: Never Alcohol Use Standard Drinks/Week Comments Yes 0 (1 standard drink = 0.6 oz pur e alcohol) occ. 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
--- OUTSIDE RECORDS SUMMARY | 2024-07-05 03:11 | XMS_ITS | Encounter Summary ---
Author Organization [place] Address [facility]. [address] Care Team Providers Care Chemical Analytical Sampler Name Role Phone Brittany Barrera MD Primary Care Provide r Maryjo Tinoco MD Primary Care Provider Brittany Navarro NP Primary Care Provider Encounter Details Date Type Department Care Team (Late st Contact Info) Description 12/19/2006 [facility] [place] Medical Advice [address] [address] [facility] Social History Tobacco Use Types Packs/Day Years Used Date Smoking Tobacco: Never Alcohol Use Standard Drinks/Week Comments Yes 0 (1 standard drink = 0.6 oz pur e alcohol) occ. 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
--- OUTSIDE RECORDS SUMMARY | 2024-07-05 03:11 | XMS_ITS | Clinical Summary ---
Author Organization [place] Address [address] [place] [address] Care Team Providers Care School Operations Manager Name Role Phone Brittany Navarro NP Primary Care Provider Allergies Active Allergy Reactions Criticality Noted Date [...] mouth daily. / DR King 1 Active [place]-3 Fatty Acids (OMEGA 3 PO)Indications:Lon or depressive [...] Noted Date Diagnosed Date Resolved Date Health Residential 05/13/2012 01/28/2024 Overview (04/17/2013): State Tier Level: Tier 1 Status: n/a Associate Dean Of Women: n/a See Letters for [facility] Care Plan Major depressive disorder, r ecurrent [...] eczema, due to unspecified cause 04/08/2003 01/05/2011 Encounters Date Type Department Care Team Description 06/17/2024 9:00 AM HISTOLOGY AIDE - 06/17/2024 11:59 PM HISTOLOGY AIDE Hospital Encounter [facility] [address], [address] [place] [address] Brittany Navarro, DAMIEN Visit for screening mammogram Discharge Disposition: Home or Self Care 06/17/2024 Travel 06/12/2024 Travel from Last 3 Months Immunizations Name Administration Dates Next Due HEPA 03/20/2007,09/20/2006 Influenza (H1N1) 09/17/2009 Influenza (IIV3) PF 05/13/2012, 9,05/25/2008,05/21/2007,06/07/20 06,07/02/2003 TD,PF 7+ (Tenivac) 12/07/2005,08/13/1996 TDAP Vaccine (Boostrix) 05/13/2012 Family History Medical History Relation Comments Sleep Apnea Brother 6 Snoring Brother 6 Sleep Apnea Brother 7 Snoring Brother 7 Ataxia Father alive in his 80s Sleep Apnea Father Snoring Father Cancer Maternal Uncle esophageal cance r Cancer - colorectal Mother early 20s Colon Cancer Mother age 28 Cancer Paternal Grandmother stomach can cer Sleep Apnea Sister 2 Snoring Sister 2 Breast Cancer No family hx of C.A.D. No family hx of Diabetes No family hx of Relation Status Comments Brother 1 Alive Brother 2 Alive Brother 3 Alive Brother 4 Alive Brother 5 Brother 6 Brother 7 Father Alive Maternal Grandfather Maternal Grandmother Maternal Uncle Mother Paternal Grandfather Paternal Grandmother Sister 1 Alive Sister 2 Son 1 Alive Son 2 Alive Son 3 Alive Social History Tobacco Use Types Packs/Day Years [...] on file Legal Sex Female 4:22 AM HISTOLOGY AIDE Gender Identity Not on file Sexual Orientation Not on file Occupation Industry Job Start Date Job End Date [employer] Not on file Not on file Not [...] 01/26/2016 10:32 AM CDT Plan of Treatment Health Maintenance Due Date Last Done Comments ANNUAL REVIEW OF HM ORDERS 1950 CT COLONOGRAPHY 1950 DEPRESSION ACTION PLAN 1952 FIT 1950 FLEX SIG 1950 sDNA (Cologuard) 1950 TSH W/FREE T4 REFLEX 05/13/2013 05/13/2012, 01/05/2011, 01/05/2011, Additional history exists PHQ-9 10/03/2013 04/02/2013, 100 08/2011, 02/20/2011 GLUCOSE 01/12/2014 01/12/2011, 12/12, 10/28/2010, Additional history exists ADVANCE CARE PLANNING 02/21/2016 02/20/2011, 011 ZOSTER IMMUNIZATION (2 of 3) 04/19/2016 02/23/2016 FALL RISK ASSESSMENT 2017 Pneumococcal Vaccine: 65+ Years (1 of 1 - PCV) 2017 COLONOSCOPY 04/30/2018 04/30/2013, 04/13, 04/23/2008, Additional history exists COLORECTAL CANCER SCREENING 04/30/2018 LIPID 09/28/2020 09/28/2015, 05/15, 06/10/2013, Additional history exists MEDICARE ANNUAL WELLNESS VISIT 04/13/2022 04/13/2021, 09/28/2015, 09/28/2015, Additional history exists DTAP/TDAP/TD IMMUNIZATION (3 - Td or Tdap) 05/13/2022 05/13/2012, 05/13/2010, 12/07/2005, Additional history exists COVID-19 Vaccine ( - 2023- season) 2024 INFLUENZA VACCINE (#1) 2024 8, 06/10/2018, 05/14/2017, Additional history exists MAMMO SCREENING 06/17/2025 06/17/2024, 03/2022, 01/03/2019, Additional history exists RSV VACCINE (1 - 1-dose 75+ series) 2027 DEXA 10/01/2030 10/01/2015, 09/13, 06/21/2009, Additional history exists HEPATITIS C SCREENING Completed 05/13/2012 , 04/04/2004, 01/02/2003 HPV IMMUNIZATION Aged Out No longer e ligible based on patient's age to complete this topic MENINGITIS IMMUNIZATION Aged Out No l onger eligible based on patient's age to complete this topic RSV MONOCLONAL ANTIBODY Aged Out No l onger eligible based on patient's age to complete this topic Procedures Procedure Name Priority Date/Time Associated Diagnosis Comments MA SCREENING BILATERAL W/ GA Routine 06/17/2024 9:48 AM HISTOLOGY AIDE Visit for screening mammogram DX BONE DENSITY Routine 10/01/2015 8:24 AM HISTOLOGY AIDE Disorder of bone, unspecified Disorder of cartilage, unspecified LIPID PROFILE Routine 09/28/2015 8:41 AM HISTOLOGY AIDE ZZHC COLONOSCOPY W BIOPSY Routine 04/30/2013 SCANNING [...] Screening Bilateral w/ Ga (06/17/2024 9:48 AM HISTOLOGY AIDE) Anatomical Region Laterality Modality Breast Bilateral Mammography Impressions 06/17/2024 12:03 PM HISTOLOGY AIDE IMPRESSION: ACR BI-RADS Category 1: Negative BREAST CANCER SCREENING RECOMMENDATION: Routine yearly mammography beginning at age 40 or as discussed with your provider. The results and recommendations of this examination will be communicated to the patient. Andrae Yuan MD Narrative 06/17/2024 12:03 PM HISTOLOGY AIDE BILATERAL FULL FIELD DIGITAL SCREENING MAMMOGRAM WITH TOMOSYNTHESIS Performed on: 06/17/24 Compared to: 06/20/2022, 05/05/2021, and 03/17/2020 Technique: This study was evaluated with the assistance of Computer-Aided Detection. Breast Tomosynthesis was used in interpretation. Findings: There are scattered areas of fibroglandular density. There is no radiographic evidence of malignancy. Brittany Navarro NP IM MAMMOGRAPHY ORDERABLES F inal Result * DX Hip/Pelvis/Spine (10/01/2015 8:24 AM HISTOLOGY AIDE) Anatomical Region Laterality Modality Dexa Other Narrative 10/03/2015 10:31 AM HISTOLOGY AIDE BONE MINERAL DENSITY BY DXA SCANNING 10/01/15 [...] was performed on your patient using our [employer] densitometer. The results are summarized and a [...] to call me. Procedure Note Kieran Grewal H - 01/16/2021 BONE MINERAL DENSITY BY DXA [...] was performed on your patient using our 24h00 iDXAdensitometer. The results are summarized and a [...] results, pleasedo not hesitate to call me. Xi Shi MD IMG DEXA ORDERABLES Final Re sult * (ABNORMAL) Lipid Profile (09/28/2015 8:41 AM HISTOLOGY AIDE) Cholesterol 218(H) <=200 mg/dL 09/28/2015 11:29 AM HISTOLOGY AIDE [facility] Triglycerides 114 0 - 150 mg/dL 09/28/2015 11:29 AM [facility] Direct Measure HDL 71 >=40 mg/dL 09/28/2015 11:29 AM [facility] LDL Cholesterol Calculated 124 0 - 130 mg/dL 09/28/2015 11:29 AM [facility] Blood specimen (specimen) Venipuncture / Unknown 09/28/2015 8:41 AM HISTOLOGY AIDE 09/28/2015 8:41 AM HISTOLOGY AIDE Xi Shi MD LAB - BLOOD ORDERABLES Final Result [facility] [address] [place] [address], [facility] [address] [place] [address] * COLONOSCOPY W BIOPSY (04/30/2013) Maryjo Tinoco MD PROCEDURES Final Result * Hepatits C antibody ([facility]) (05/13/2012 9:30 AM CDT) HCV Antibody NON-REACTI VE NON-REACTI VE [facility] SIGNAL TO CUT OFF - [facility] 0.01 <1.00 [facility] Blood specimen (specimen) 05/13/2012 9:30 AM CDT 05/14/2012 1:25 AM CDT Narrative Resulting Agency Comment Performing Organization Information: [facility] [address] [place] [address] Aleksandar Gonzales M.D. us Maryjo Tinoco MD LAB - BLOOD ORDERABLES Final R esult Performing Organization Address City/[facility] Co de Phone Number SHAMA BURNET[address] [address] * TSH (05/13/2012 9:06 AM CDT) Pathologist [facility] TSH 1.47 0.40 - 4.50 mIU/L [facility] Blood specimen (specimen) 05/13/2012 9:06 AM CDT 05/14/2012 1:26 AM CDT Narrative Resulting Agency Comment Performing Organization Information: [facility] [address] [place] [address] Aleksandar Gonzales M.D. us Maryjo Tinoco MD LAB - BLOOD ORDERABLES Final R esult Performing Organization Address City/[facility] Co de Phone Number SHAMA MONTGOM[address] [address] * Glucose (01/12/2011 11:25 AM CDT) Pathologist [facility] Glucose 89 60 - 99 mg/dL [facility] 01/12/2011 11:2 5 AM CDT 01/12/2011 11:40 AM CDT us Kristy Tomas MD LAB - BLOOD ORDERABLES Fi nal Result M [facility] [address], [place] [address], [facility] [phone] from Last 3 Months or Most Recently Relevant to Health Maintenance Insurance [facility] MEDICARE ADVANTAGE [facility] MEDICARE ADVANTAGE OTHER Care Teams School Operations Manager Relationship Specialty Start Date End Date Brittany Navarro NP [address] [address] PCP - General 06/12/24
--- OUTSIDE RECORDS SUMMARY | 2024-07-05 03:11 | XMS_ITS | Encounter Summary ---
Author Organization [place] Address [address] [place] [address] Care Team Providers Care Training And Development Director Name Role Phone Brittany Navarro NP Primary Care Provider [phone] Reason for Visit * Diagnostic Imaging Mammo (Routine) - Pending Review Specialty Diagnoses / Procedures Referred By Contac t Referred To Contact Radiology. Diagnoses Visit for screening mammogram Procedures MA Screening Bilateral w/ Ga MA Screen Bilateral w/Ga Brittany Navarro NP [address] [address] Phone: tel: fax: Referral ID Status Reason Start Date Expiration Date V isits Requested Visits Authorized [id number] Pending Review 12/31/2023 12/30/2024 1 1 Encounter Details Date Type Department Care Team (Latest Contact Info) Description 06/17/2024 9:00 AM WARDROBE SPECIALTY WORKER - 06/17/2024 11:59 PM [facility] Hospital Encounter [facility] [place] [address], [address] [place] [address] Brittany Navarro NP [address] [id number] Visit for screening mammogram Discharge Disposition: Home or Self Care Social History Tobacco Use Types Packs/Day Years [...] on file Legal Sex Female 4:22 AM WARDROBE SPECIALTY WORKER Gender Identity Not on file Sexual Orientation Not on file Occupation Industry Job Start Date Job End Date [employer] Not on file Not on file Not on file documented as of this encounter Medications at Time of Discharge buPROPion (WELLBUTRIN XL) 150 MG 24 hr tabletIndications:Ma santy depressive disorder, recurrent episode, in full remission (H) TAKE 2 TABLETS BY MOUTH EVERY MORNING 180 tablet 1 09/01/2013 CALCIUM 500 500 MG OR TABS 1500mg daily 06/13/2007 conjugated estrogens (PREMARIN) vaginal creamIndications:Atr ophic vulvovaginitis Place 0.5 g vaginally twice a week. 42.5 g 12 05/13/2012 levothyroxine (SYNTHROID) 112 MCG tabletIndications:Hy pothyroidism Take 1 tablet by mouth daily. / DR King 02/20/2011 MULTIVITAMINS OR TABS 1 tab po qd 11/19/2002 [place]-3 Fatty Acids (OMEGA 3 PO)Indications:Major depressive disorder, recurrent episode, in full remission (H) Take by mouth. TRIAMCINOLONE ACETONIDE 0.1 % EX CREAIndications:Cont act dermatitis and other eczema, due to unspecified cause APPLY TWICE DAILY DIRECTED 30g 1 06/25/2009 VITAMIN D 1000 UNIT OR TABS 1 TABLET DAILY 30 0 09/17/2009 ZYRTEC 10 MG OR TABSIndications:Konrad rgic rhinitis, cause unspecified 1 TABLET EVERY OTHER DAY 30 prn 01/06/2009 documented as of this encounter Plan of Treatment Not on file documented as of this encounter Procedures Procedure Name Priority Date/Time Associated Diagnosis Comments MA SCREENING BILATERAL W/ GA Routine 06/17/2024 9:48 AM WARDROBE SPECIALTY WORKER Visit for screening mammogram documented in this encounter Results * MA Screening Bilateral w/ Ga (06/17/2024 9:48 AM WARDROBE SPECIALTY WORKER) Anatomical Region Laterality Modality Breast Bilateral Mammography Impressions 06/17/2024 12:03 PM WARDROBE SPECIALTY WORKER IMPRESSION: ACR BI-RADS Category 1: Negative BREAST CANCER SCREENING RECOMMENDATION: Routine yearly mammography beginning at age 40 or as discussed with your provider. The results and recommendations of this examination will be communicated to the patient. Andrae Yuan MD Narrative 06/17/2024 12:03 PM WARDROBE SPECIALTY WORKER BILATERAL FULL FIELD DIGITAL SCREENING MAMMOGRAM WITH TOMOSYNTHESIS Performed on: 06/17/24 Compared to: 06/20/2022, 05/05/2021, and 03/17/2020 Technique: This study was evaluated with the assistance of Computer-Aided Detection. Breast Tomosynthesis was used in interpretation. Findings: There are scattered areas of fibroglandular density. There is no radiographic evidence of malignancy. Brittany Navarro NP IMG MAMMOGRAPHY ORDERABLES F inal Result documented in this encounter Visit Diagnoses Diagnosis Visit for screening mammogram Other screening mammogram documented in this encounter Care Teams Training And Development Director Relationship Specialty Start Date End Date Brittany Navarro NP [address] [address] PCP - General 06/12/24 documented as of this encounter
--- OUTSIDE RECORDS SUMMARY | 2024-07-05 03:11 | XMS_ITS | Encounter Summary ---
Author Organization [place] Address [address] [place] [address]. [place] [address] Care Team Providers Care Hurricane Tracker Name Role Phone Brittany Navarro NP Primary Care Provider [phone] Encounter Details Date Type Department Care Team (Latest Contact Info) Description 06/17/2024 Travel Social History Tobacco Use Types Packs/Day [...] on file Legal Sex Female 4:22 AM DRYWALL WORKER Gender Identity Not on file Sexual Orientation Not on file Occupation Industry Job Start Date Job End Date [employer] Not on file Not on file Not on file documented as of this encounter Plan of Treatment Not on file documented as of this encounter Visit Diagnoses Not on filedocumented in this encounter Care Teams Hurricane Tracker Relationship Specialty Start Date End Date Brittany Navarro NP [address] [address] PCP - General 06/12/24 documented as of this encounter
== END 2024-07-01 11:53 | disposition home or self-care (01) ==
LOC: NFLDREF 07-05 03:09
PROVIDERS: PCP Nurse Practitioner Family; Referring Provider Nurse Practitioner Family; Visit Provider Nurse Practitioner Family
DX: E03.9 Hypothyroidism, unspecified (principal)
CPT/HCPCS: 84443

== ENCOUNTER 2024-11-07 11:55 | Emergency (ER) | payer MEDICARE, SELFPAY ==
--- OUTSIDE RECORDS SUMMARY | 2024-11-07 11:58 | XMS_ITS | Continuity of Care Document ---
Author Organization [facility] Address [address] [address] [place] [address] Care Team Providers Care Changeover Operator Name Role Phone [facility] [place] Unavailable Unav ailable Procedures Procedure Date Colono Colon Colono Pt Doc Pt W/o Advance Directives Directive Yes / No Effective Date File Name No Information Encounters Encounter Description Practice Location Reason(s) For Visit Diagnoses Date Provider Providers Copied on Encounter [facility], [address] [address], [place], [place], [id number], [place] [facility] No Information [facility]. [address] [address], [place], [place], [id number], . tel:[phone] Family History Family Member Type Diagnosis Age At Onset No Information Payers Payer name Insurance type Covered green party ID Authoriza tion(s) Medicare NGS MB [id number] For Life [id number] Social History Type Description Quantity Date Captured [...]
--- OUTSIDE RECORDS SUMMARY | 2024-11-07 11:58 | XMS_ITS | Clinical Summary ---
Author Organization [place] Address [address] [place] [address] Care Team Providers Care Market Garden Worker Name Role Phone Brittany Navarro NP Primary [...] mouth daily. / DR King 1 Active [place]-3 Fatty Acids (OMEGA 3 PO)Indications:Lon or depressive disorder, recurrent episode, in full remission Take by mouth. Active conjugated estrogens (PREMARIN) vaginal creamIndications:A trophic vulvovaginitis Place 0.5 g vaginally twice a week. 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 Not on file Not on file Not [...] 1950 FLEX SIG 1950 sDNA (Cologuard) 1950 Pneumococcal Vaccine: 50+ Years (1 of 1 - PCV) 2002 TSH W/FREE T4 REFLEX 05/13/2013 05/13/2012, 01/05/2011, 01/05/2011, Additional history exists PHQ-9 10/03/2013 04/02/2013, 10/0 08/2011, 02/20/2011 DIABETES SCREENING 01/12/2014 01/12/2011, 0 01/05/2011, 10/28/2010, Additional history exists ADVANCE CARE PLANNING 02/21/2016 02/20/2011, 011 ZOSTER IMMUNIZATION (2 of 3) 04/19/2016 02/23/2016 FALL RISK ASSESSMENT 2017 COLONOSCOPY 04/30/2018 04/30/2013, 04/13, 04/23/2008, Additional history exists COLORECTAL CANCER SCREENING 04/30/2018 LIPID 09/28/2020 09/28/2015, 10/, 06/10/2013, Additional history exists MEDICARE ANNUAL WELLNESS VISIT 04/13/2022 04/13/2021, 09/28/2015, 09/28/2015, Additional history exists DTAP/TDAP/TD IMMUNIZATION (3 - Td or Tdap) 05/13/2022 05/13/2012, 05/13/2010, 12/07/2005, Additional history exists COVID-19 Vaccine ( - season) 2024 INFLUENZA VACCINE (#1) 2024 8, 06/10/2018, 05/14/2017, Additional history exists MAMMO SCREENING 06/17/2025 06/17/2024, 11/0 03/2022, 01/03/2019, Additional history exists RSV VACCINE (1 - 1-dose 75+ series) 2027 DEXA 10/01/2030 10/01/2015, 09/13, 06/21/2009, Additional history exists HEPATITIS C SCREENING Completed 05/20/2019 , 05/13/2012, 04/04/2004, Additional history exists HPV IMMUNIZATION Aged Out No longer e ligible based on patient's age to complete this topic MENINGITIS IMMUNIZATION Aged Out No l onger eligible based on patient's age to complete this topic Procedures Procedure Name Priority Date/Time Associated Diagnosis Comments MA SCREENING BILATERAL W/ GA Routine 06/17/2024 9:48 AM HELP DESK SUPPORT SPECIALIST Visit for screening mammogram DX BONE DENSITY Routine 10/01/2015 8:24 AM HELP DESK SUPPORT SPECIALIST Disorder of bone, unspecified Disorder of cartilage, unspecified LIPID PROFILE Routine 09/28/2015 8:41 AM HELP DESK SUPPORT SPECIALIST ZZHC COLONOSCOPY W BIOPSY Routine 04/30/2013 SCANNING [...] Screening Bilateral w/ Ga (06/17/2024 9:48 AM HELP DESK SUPPORT SPECIALIST) Anatomical Region Laterality Modality Breast Bilateral Mammography Impressions 06/17/2024 12:03 PM HELP DESK SUPPORT SPECIALIST IMPRESSION: ACR BI-RADS Category 1: Negative BREAST CANCER SCREENING RECOMMENDATION: Routine yearly mammography beginning at age 40 or as discussed with your provider. The results and recommendations of this examination will be communicated to the patient. Andrae Yuan MD Narrative 06/17/2024 12:03 PM HELP DESK SUPPORT SPECIALIST BILATERAL FULL FIELD DIGITAL SCREENING MAMMOGRAM WITH [...] Result * DX Hip/Pelvis/Spine (10/01/2015 8:24 AM HELP DESK SUPPORT SPECIALIST) Anatomical Region Laterality Modality Dexa Other Narrative 10/03/2015 10:31 AM HELP DESK SUPPORT SPECIALIST BONE MINERAL DENSITY BY DXA SCANNING 10/01/15 [...] was performed on your patient using our Plink iDXA densitometer. The results are summarized and a [...] was performed on your patient using our Plink iDXAdensitometer. The results are summarized and a [...] * (ABNORMAL) Lipid Profile (09/28/2015 8:41 AM HELP DESK SUPPORT SPECIALIST) Cholesterol 218(H) <=200 mg/dL 09/28/2015 11:29 AM HELP DESK SUPPORT SPECIALIST [facility] Triglycerides 114 0 - 150 mg/dL 09/28/2015 11:29 AM HELP DESK SUPPORT SPECIALIST [facility] Direct Measure HDL 71 >=40 mg/dL 09/28/2015 11:29 AM HELP DESK SUPPORT SPECIALIST [facility] LDL Cholesterol Calculated 124 0 - 130 mg/dL 09/28/2015 11:29 AM HELP DESK SUPPORT SPECIALIST [facility] Blood specimen (specimen) Venipuncture / Unknown 09/28/2015 8:41 AM HELP DESK SUPPORT SPECIALIST 09/28/2015 8:41 AM HELP DESK SUPPORT SPECIALIST Xi Shi MD LAB - BLOOD ORDERABLES Final Result Performing Organization Address City/State/[facility] Co de Phone Number [facility] [address] [place] [address], [facility] [address] [place] [address] * COLONOSCOPY W BIOPSY (04/30/2013) Maryjo Tinoco MD PROCEDURES Final Result * Hepatits C antibody ([facility]) (05/13/2012 9:30 AM CDT) HCV Antibody NON-REACTI VE NON-REACTI VE [facility] SIGNAL TO CUT OFF - [facility] 0.01 <1.00 [facility] Blood specimen (specimen) 05/13/2012 9:30 AM CDT 05/14/2012 1:25 AM CDT Narrative Resulting Agency Comment Performing Organization Information: [facility] [address] [place] [address] Aleksandar Gonzales M.D. us Maryjo Tinoco MD LAB - BLOOD ORDERABLES Final R esult Performing Organization Address City/[facility] Co de Phone Number [employer] [address] [place] [address] * TSH (05/13/2012 9:06 AM CDT) TSH 1.47 0.40 - 4.50 mIU/L [facility] Blood specimen (specimen) 05/13/2012 9:06 AM CDT 05/14/2012 1:26 AM CDT Narrative Resulting Agency Comment Performing Organization Information: [facility] [address] [place] [address] Aleksandar Gonzales M.D. us Maryjo Tinoco MD LAB - BLOOD ORDERABLES Final R esult Performing Organization Address [facility] Co de Phone Number [employer] [address] [place] [address] * Glucose (01/12/2011 11:25 AM CDT) Glucose 89 60 - 99 mg/dL [facility] 01/12/2011 11:2 5 AM CDT 01/12/2011 11:40 AM CDT us Kristy Tomas MD LAB - BLOOD ORDERABLES Fi nal Result [facility] [address] [address], [facility] [phone] from Last 3 Months or Most Recently Relevant to Health Maintenance Insurance [facility] MEDICARE ADVANTAGE [facility] MEDICARE ADVANTAGE OTHER Care Teams Market Garden Worker Relationship Specialty Start Date End Date Brittany Navarro NP [address] [id number] PCP - General 06/12/24
--- OUTSIDE RECORDS SUMMARY | 2024-11-07 11:58 | XMS_ITS | Encounter Summary ---
Author Organization [place] Address [facility] [place] [address] Care Team Providers Care Dietary Aid Name Role Phone Brittany Barrera MD Primary Care Provide r Maryjo Tinoco MD Primary Care Provider Brittany Navarro NP Primary Care Provider [phone] Encounter Details Date Type Department Care Team (Late st Contact Info) Description 06/21/2006 [facility] [place] [address] [address] [facility] Social History Tobacco Use Types Packs/Day Years Used Date Smoking Tobacco: Never Alcohol Use Standard Drinks/Week Comments Yes 0 (1 standard drink = 0.6 oz pur e alcohol) occ. 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
--- OUTSIDE RECORDS SUMMARY | 2024-11-07 11:58 | XMS_ITS | Encounter Summary ---
Author Organization [place] Address [address] [place] [address]. [place] [address] Care Team Providers Care Evening Anchor Name Role Phone Brittany Barrera MD Primary Care Provide r Maryjo Tinoco MD Primary Care Provider Brittany Navarro NP Primary Care Provider Encounter Details Date Type Department Care Team (Late st Contact Info) Description 09/20/2007 [facility] Advice [address] [address] Georgia Smart MD [address] [place] [address] Social History Tobacco Use Types Packs/Day Years Used Date Smoking Tobacco: Never Alcohol Use Standard Drinks/Week Comments Yes 0 (1 standard drink = 0.6 oz pur e alcohol) occ. 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
--- OUTSIDE RECORDS SUMMARY | 2024-11-07 11:58 | XMS_ITS | Encounter Summary ---
Author Organization [place] Address [facility] [place] [address] Care Team Providers Care Chemist Organic Name Role Phone Brittany Barrera MD Primary Care Provide r Maryjo Tinoco MD Primary Care Provider Brittany Navarro NP Primary Care Provider Encounter Details Date Type Department Care Team (Late st Contact Info) Description 06/26/2007 [facility] Medical Advice Initial Department [facility] Social History Tobacco Use Types Packs/Day Years Used Date Smoking Tobacco: Never Alcohol Use Standard Drinks/Week Comments Yes 0 (1 standard drink = 0.6 oz pur e alcohol) occ. 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
--- OUTSIDE RECORDS SUMMARY | 2024-11-07 11:58 | XMS_ITS | Encounter Summary ---
Author Organization [place] Address [address] [place] [address]. [place] [address] Care Team Providers Care Supervisor Carton And Can Supply Name Role Phone Brittany Barrera MD Primary Care Provide r Maryjo Tinoco MD Primary Care Provider [phone] Brittany Navarro NP Primary Care Provider Encounter Details Date Type Department Care Team (Late st Contact Info) Description 02/21/2008 [facility] Medical Advice [address] [place] [address] William Locke MD [address] [place], [place] [address] [id number] Social History Tobacco Use Types Packs/Day Years Used Date Smoking Tobacco: Never Alcohol Use Standard Drinks/Week Comments Yes 0 (1 standard drink = 0.6 oz pur e alcohol) occ. 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
--- OUTSIDE RECORDS SUMMARY | 2024-11-07 11:58 | XMS_ITS | Encounter Summary ---
Author Organization [place] Address [facility] [place] [address] Care Team Providers Care Gravel Screener Name Role Phone Brittany Barrera MD Primary Care Provide r Maryjo Tinoco MD Primary Care Provider [phone] Brittany Navarro NP Primary Care Provider Encounter Details Date Type Department Care Team (Late st Contact Info) Description 06/25/2008 [facility] Medical Advice Initial Department [facility] Social History Tobacco Use Types Packs/Day Years Used Date Smoking Tobacco: Never Alcohol Use Standard Drinks/Week Comments Yes 0 (1 standard drink = 0.6 oz pur e alcohol) occ. 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
--- OUTSIDE RECORDS SUMMARY | 2024-11-07 11:58 | XMS_ITS | Encounter Summary ---
Author Organization [place] Address [facility] [place] [address] Care Team Providers Care Assistant Principal Name Role Phone Brittany Barrera MD Primary Care Provide r Maryjo Tinoco MD Primary Care Provider Brittany Navarro NP Primary Care Provider [phone] Encounter Details Date Type Department Care Team (Late st Contact Info) Description 12/19/2006 [facility] [place] [address] [address] [facility] Social History Tobacco Use Types Packs/Day Years Used Date Smoking Tobacco: Never Alcohol Use Standard Drinks/Week Comments Yes 0 (1 standard drink = 0.6 oz pur e alcohol) occ. 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
--- OUTSIDE RECORDS SUMMARY | 2024-11-07 11:58 | XMS_ITS | Continuity of Care Document ---
Author Organization [facility] Address [address] [address] [place] [address] Phone Care Team Providers Care Switch House Operator Name Role Phone Unavailable Unavailable Unavailable Allergies, [...] [facility], [address] [address], [place], [place], [id number], tel:[phone] [facility] Polyp of colon, unspecified part of colon, unspecified typeEncounter for screening for malignant neoplasm of colonPersonal history of colonic polypsBenign neoplasm of cecumBenign neoplasm of transverse colon 201 8 No Information Referring Provider: Referral Self, USE FOR SELF REFERRALS. Family History Family Member Type Diagnosis Age At Onset No Information Payers Payer name Insurance type Covered libertarian ID Authoriza tion(s) Medicare NGS MB [id number] Applied Identity [id number] Social History Type Description Quantity Date Captured [...]
--- OUTSIDE RECORDS SUMMARY | 2024-11-07 11:58 | XMS_ITS | Encounter Summary ---
Author Organization [place] Address [facility] [place] [address] Care Team Providers Care Java Web User Interface Developer Name Role Phone Brittany Barrera MD Primary Care Provide r Maryjo Tinoco MD Primary Care Provider [phone] Brittany Navarro NP Primary Care Provider [phone] Encounter Details Date Type Department Care Team (Late st Contact Info) Description 09/22/2009 [facility] Medical Advice [address] [address] [facility] Social History Tobacco Use Types Packs/Day Years Used Date Smoking Tobacco: Never Alcohol Use Standard Drinks/Week Comments Yes 0 (1 standard drink = 0.6 oz pur e alcohol) occ. 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
--- OUTSIDE RECORDS SUMMARY | 2024-11-07 11:58 | XMS_ITS | CCD ---
Author Name Interface, [id number] Address [address] [facility] [address] [place] [address] [facility] Address [address] [facility] [address] [place] [address] Care Team Providers Care Inside Barrel Polisher Name Role Phone Kaley Vallejo Unavailable Unavailable Care Plan Date Type Value 01/03/2024 APPOINTMENT GENETICS NEW PT EXTERNAL REFERRAL 60 MIN 01/03/2024 APPOINTMENT LAB 15 MIN Reason for Visit LAB 15 MIN Social History Date Name Value Sex Female
--- OUTSIDE RECORDS SUMMARY | 2024-11-07 11:59 | XMS_ITS | Encounter Summary ---
Author Organization [place] Address [address] [place] [address]. 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
--- OUTSIDE RECORDS SUMMARY | 2024-11-07 11:59 | XMS_ITS | Encounter Summary ---
Author Organization [place] Address [facility] [place] [address] Care Team Providers Care Tin Cutter Name Role Phone Brittany Barrera MD Primary Care Provide r Maryjo Tinoco MD Primary Care Provider Brittany Navarro NP Primary Care Provider [phone] Encounter Details Date Type Department Care Team (Late st Contact Info) Description 12/20/2010 [facility] Medical Advice [address] [address] [facility] Social History Tobacco Use Types Packs/Day Years Used Date Smoking Tobacco: Never Alcohol Use Standard Drinks/Week Comments Yes 0 (1 standard drink = 0.6 oz pur e alcohol) occ. 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
--- OUTSIDE RECORDS SUMMARY | 2024-11-07 11:59 | XMS_ITS | Continuity of Care Document ---
Author Organization [facility] Address [address] [address] [place] [address] Phone Care Team Providers Care Sales Stock Associate Name Role Phone Gerardo Morales CRNA Unavailable [...] Diagnoses Date Provider Providers Copied on Encounter [facility] JOSE LUIS, [address] [address], [place], [id number], [place] tel:[phone] [facility] No Information 2 Andrew Carrillo. [address], [address], [place], [place], [id number], [place]. tel:[phone] [facility] JOSE LUIS, [address] [address], [place], [id number], [place] tel:[phone] [facility] GI Symptoms or Concerns (chief complaint) Benign neoplasm of transverse colonPersonal history of colonic polypsEncounte r for screening for malignant neoplasm of colonBenign neoplasm of transverse colonPersonal history of colonic polyps 2 No Information Referring Provider: Referral Self, USE FOR SELF REFERRALS. [facility] JOSE LUIS, [address] [address], [place], [id number], [place] tel:[phone] [facility] No Information 0 Brando Bonilla. [address], [address], [place], [place], [id number], [place]. tel:[phone] [facility] JOSE LUIS, [address] [address], [place], [id number], [place] tel:[phone] [facility] Epigastric painBenign gastric polypEpigastri c painPolyp of stomach and duodenum 0 Brando Bonilla. [address], [address], [place], [place], [id number], [place]. tel:[phone] Referring Provider: Michael Del Angel, [address], [place], [address] . tel:[phone] Offic/outpt E&m Estab Mod-hi [address] [facility] JOSE LUIS, [address] [address], [place], [id number], [place] tel:[phone] [facility] GI Symptoms or Concerns (chief complaint) Epigastric painGastroesop hageal reflux disease, esophagitis presence not specifiedFamil y history of colon cancer in mother 0 Gómez CEJA Harsh. [address] [facility] [address], [address], [place], [place], [id number], [place]. tel:[phone] Referring Provider: Mitchell Harper MD D, [address], [place], [address]. tel:[phone] [facility] [employer] [facility], [address] [address], [place], [place], [id number], [place] tel:[phone] [facility] Polyp of colon, unspecified part of colon, unspecified typeDiverticul osis large intestine w/o perforation or abscess w/o bleedingEncoun ter for screening for malignant neoplasm of colonPersonal history of colonic polypsBenign neoplasm of transverse colonDvrtclos of lg int w/o perforation or abscess w/o bleeding 9 No Information Referring Provider: Referral Self, USE FOR SELF REFERRALS. [facility] [employer] [facility], [address] [address], [place], [place], [id number], tel:[phone] [facility] No Information 9 No Information Offic Cons New/estab Mod-hi [address] [facility] [employer] [place], [address] [address], [place], [place], [id number], tel:[phone] [facility] RLQ PainDiverticul itis Of Colon 7 No Information Referring Provider: Georgia Smart MD T, [address], [place], [address] . tel:[phone] Family History Family Member Type Diagnosis Age [...] i-directional interface ; Source: Other Registry Novel [id number], all formulations administered Note: [facility] bi-direct ional [...] Registry Payers Payer name Insurance type Covered libertarian ID Authoriza tion(s) Blue Cross Medicare Advantage [id number] Social History Type Description Quantity Date [...]
--- OUTSIDE RECORDS SUMMARY | 2024-11-07 11:59 | XMS_ITS | Encounter Summary ---
Author Organization [place] Address [facility] [place] [address] Care Team Providers Care Cottonseed Meat Presser Name Role Phone Brittany Barrera MD Primary Care Provide r Maryjo Tinoco MD Primary Care Provider Brittany Navarro NP Primary Care Provider [phone] Encounter Details Date Type Department Care Team (Late st Contact Info) Description 12/28/2010 [facility] Medical Advice [address] [address] [facility] Social History Tobacco Use Types Packs/Day Years Used Date Smoking Tobacco: Never Alcohol Use Standard Drinks/Week Comments Yes 0 (1 standard drink = 0.6 oz pur e alcohol) occ. 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 Gender Identity Not on file Sexual Orientation Not on file Occupation Industry Job Start Date Job End Date [employer] Not on file Not on file Not on file documented as of this encounter Plan of Treatment Not on file documented as of this encounter Visit Diagnoses Not on filedocumented in this encounter Care Teams Cottonseed Meat Presser Relationship Specialty Start Date End Date Brittany Barrera MD PCP - General 07/15/02 02/19/11 Maryjo Tinoco MD [address] , [address] [place] [address] PCP - General Family Practice 02/20/11 04/22/14 Brittany Navarro NP [address] [address] PCP - General 06/12/24 documented as of this encounter
--- OUTSIDE RECORDS SUMMARY | 2024-11-07 11:59 | XMS_ITS | Continuity of Care Document ---
Author Organization [facility] Address [address] [address] [place] [address] Care Team Providers Care Long Wall Mining Machine Tender Name Role Phone [place], [place] Unavailable Unav ailable Procedures Procedure Date Colono Colono Advance Directives Directive Yes / No Effective Date File Name No Information Encounters Encounter Description Practice Location Reason(s) For Visit Diagnoses Date Provider Providers Copied on Encounter [facility], [address] [address], [place], [place], [id number], [place] [facility] No Information [facility]. [address] [address], [place], [place], [id number], . tel:[phone] Family History Family Member Type Diagnosis Age At Onset No Information Payers Payer name Insurance type Covered constitution party ID Authoriza tion(s) Blue Cross Medicare Advantage BL [id number] Social History Type Description Quantity Date [...]
[2024-11-07 12:11] VITALS: BP 115/78; PULSE 86; RESP 20; TEMP 37.1; O2SAT 96
--- NOTE | 2024-11-07 14:02 | CRLHL7_ITS ---
For Patients: As a result of the Century Cures Act, medical imaging exams and procedure reports are released immediately into your electronic medical record. You may view this report before your referring provider. If you have questions, please contact your health care provider. INDICATION: Diffuse abdominal pain. TECHNIQUE: CT abdomen and pelvis acquired with mL Isovue 370 IV contrast. COMPARISON: None. FINDINGS: Lower chest: Scattered subsegmental atelectasis. No focal consolidation. Liver: No suspicious focal hepatic lesion. Gallbladder and bile ducts: Unremarkable. Pancreas: Unremarkable. Spleen: Punctate calcified granulomas. Splenule is noted. Adrenal glands: Unremarkable. Kidneys: Kidneys enhance symmetrically, without hydronephrosis. Simple appearing left renal cysts. Multiple punctate nonobstructing bilateral renal calculi. Retroperitoneum: No lymphadenopathy. Bowel and mesentery: Postsurgical changes of the sigmoid colon. Acute diverticulitis at the proximal sigmoid colon. No evidence of perforation or abscess formation at this time. Mild circumferential wall thickening of the proximal sigmoid colon. Normal appendix. Tiny hiatal hernia. Bladder: Decompressed, suboptimally evaluated. Reproductive organs: Post hysterectomy. Pelvic lymph nodes: Prominent mesorectal lymph nodes measuring up to 0.8 cm (series 2, image 101). Vessels: Scattered atherosclerotic calcifications. Abdominal wall: No acute abdominal wall abnormality. Large lipomatous lesion in the left anterior lateral abdominal wall. Bones: Multilevel degenerative changes of the spine. Bones are diffusely osteopenic. IMPRESSION: 1. Acute uncomplicated diverticulitis at the proximal sigmoid colon. 2. Mild circumferential wall thickening of the proximal sigmoid colon, may be secondary to muscular hypertrophy. However, there are also enlarged mesorectal lymph nodes present, which raises concern for underlying neoplasm. Follow-up colonoscopy is recommended. 3. Additional incidental findings as above. Please note that all CT scans at this facility use dose modulation, iterative reconstruction, and/or weight-based dosing when appropriate to reduce radiation dose to as low as reasonably achievable. Dictated by Alessandra Teran MD @ 11/07/2024 4:34:02 PM (Electronically Signed)
--- NOTE | 2024-11-07 14:06 | ED_ITS ---
HPI - General Adult General Date Seen: 11/07/24 Chief complaint: Abdominal Pain Stated complaint: Needs CT--possible infection; lower abdominal pain Time Seen by Provider: 11/07/24 13:36 History of Present Illness HPI narrative: Patient is a 74-year-old woman who is status post hysterectomy for uterine polyps as well as partial colectomy for diverticulitis remotely, developed diffuse abdominal pain which started around 2 or 3:00 a.m.. She had a normal bowel movement but pain did not improve. She has had pain like this previously but typically have a good bowel movement helps resolve it and it has not gotten better. She has not had nausea or vomiting. She states her temperature at home was 99 which she relays is a fever for her. She has not documented any temperature is above that. She felt achy earlier although that is resolved. She denies urinary symptoms. She has not had any diarrhea or bloody stools. Related Data Previous Rx's ?Medication ?Instructions ?Recorded Synthroid 100 mcg tablet 100 mcg PO QDAY #90 tabs 03/27/24 (levothyroxine) sennosides 8.6 mg capsule (senna) 8.6 mg PO QDAY PRN constipation 07/03/24 #90 caps Allergies Allergy/AdvReac Type Severity Reaction Status Date / Time aspirin Allergy Verified 11/07/24 12:11 bacitracin Allergy Verified 11/07/24 12:11 chlorhexidine (From Allergy Verified 11/07/24 12:11 ChloraPrep Clear) erythromycin base Allergy Verified 11/07/24 12:11 hydrocodone (From Vicodin) Allergy Verified 11/07/24 12:11 isopropyl alcohol (From Allergy Verified 11/07/24 12:11 ChloraPrep Clear) ketorolac (From Toradol) Allergy Verified 11/07/24 12:11 NSAIDS (Non-Steroidal Allergy Verified 11/07/24 12:11 Anti-Inflamma sulfamethoxazole (From Allergy Verified 11/07/24 12:11 Sulfamethoxazole-Trimethoprim) trimethoprim (From Allergy Verified 11/07/24 12:11 Sulfamethoxazole-Trimethoprim) Review of Systems Status of ROS: Reports: 10 or more systems reviewed and unremarkable except as noted in History and below [facility] Medical History Kidney cysts ?N28.1 - Cyst of kidney, acquired (ICD-10) Hiatal hernia ?K44.9 - Diaphragmatic hernia without obstruction or gangrene (ICD-10) Atrophy of vagina ?N95.2 - Postmenopausal atrophic vaginitis (ICD-10) Family history of colon cancer in mother ?Z80.0 - Family history of malignant neoplasm of digestive organs (ICD-10) History of osteopenia ?Z87.39 - Personal history of other diseases of the musculoskeletal system and connective tissue (ICD-10) History of gluten sensitivity History of cervical dysplasia ?Z87.410 - Personal history of cervical dysplasia (ICD-10) History of small bowel obstruction ?Z87.19 - Personal history of other diseases of the digestive system (ICD-10) History of rectocele Diverticulosis ?K57.90 - Diverticulosis of intestine, part unspecified, without perforation or abscess without bleeding (ICD-10) History of colon polyps ?Z86.010 - Personal history of colonic polyps (ICD-10) History of depression ?Z86.59 - Personal history of other mental and behavioral disorders (ICD-10) History of multinodular goiter ?Z86.39 - Personal history of other endocrine, nutritional and metabolic disease (ICD-10) Surgical History H/O hysterectomy for benign disease ?Z90.710 - Acquired absence of both cervix and uterus (ICD-10) History of D&C ?Z98.890 - Other specified postprocedural states (ICD-10) History of colposcopy ?Z98.890 - Other specified postprocedural states (ICD-10) History of colectomy ?Z90.49 - Acquired absence of other specified parts of digestive tract (ICD- 10) History of right knee surgery ?Z98.890 - Other specified postprocedural states (ICD-10) H/O bilateral cataract extraction ?Z98.41 - Cataract extraction status, right eye (ICD-10) ?Z98.42 - Cataract extraction status, left eye (ICD-10) History of surgery on right wrist ?Z98.890 - Other specified postprocedural states (ICD-10) History of tubal ligation ?Z98.51 - Tubal ligation status (ICD-10) History of thyroidectomy ?E89.0 - Postprocedural hypothyroidism (ICD-10) Family History Father Ataxia Mother Colon cancer, Onset Age: 26 Social History Narrative: Retired. Non smoker, rare alcohol use. No illicit drug use. 3 children. What is your current living situation?: I presently have a place to live Problems where you live: no known problems Problems where you live details: n/a In the past 12 months, utilities in danger of being shut off: no In past 12 months, lack of transportation kept you from medical appts, meetings, work, or getting things needed for daily living: no In the past 12 mos, have been you worried that your food would run out before you had money to buy more?: never true In the past 12 mos, the food you bought just didn't last and you didn't have money to buy more?: never true Smoking Status: Never smoker Do you use any of these nicotine containing products: None How often do you have a drink containing alcohol: monthly or less Alcohol type: wine How many standard drinks containing alcohol do you have on a typical day: 1 or 2 How often do you have six or more drinks on one occasion: Never AUDIT-C Alcohol total score: 1 Non-prescribed substance use: marijuana (any form) Non-prescribed substance use details: CBD oil Caffeine: No How often does anyone, including family, friends and others, physically hurt you : never How often does anyone, including family, friends and others, insult or talk down to you: never How often does anyone, including family, friends and others, threaten you with harm: never How often does anyone, including family, friends and others, scream or curse at you: never Are you using contraception or practicing any form of control: No service: No Exam Narrative: Exam Narrative: Vital signs reviewed In general, alert, nontoxic elderly woman. She looks comfortable. Head: Normocephalic, atraumatic. Eyes: Sclera clear. Pupils equal and reactive. ENT: Mucous membranes moist. Neck: Supple without adenopathy. Heart: Regular rate and rhythm without murmur. Lungs: Clear. No increased work of breathing, crackles or wheezes. Abdomen: Soft, nontender to palpation. No rebound guarding or rigidity. Extremities: Well perfused, pulses intact. No significant edema. Neurologic: Alert, conversant. Speech fluent, face symmetric. Moves all extremities equally. Skin: Warm, dry well perfused. Affect: Normal. Const: Vital Signs, click to edit/add: Vital Signs - 24 hr 11/07/24 12:11 11/07/24 14:33 11/07/24 16:51 Temperature 98.7 F 99.3 F Pulse Rate 74 71 Pulse Rate [Pulse Oximeter] 86 Respiratory Rate 20 14 16 Blood Pressure 121/59 L 118/60 Blood Pressure [Ri ght Upper Arm] 115/78 Pulse Oximetry 96 97 96 Oxygen Delivery Me thod Room Air Room Air Room Air Course Course ED Course: Patient presents with diffuse abdominal pain, no significant tenderness and a benign exam overall. She does have history of prior abdominal surgeries, diagnostic considerations would include bowel obstruction, ischemic bowel, diverticulitis, pancreatitis, cholecystitis, appendicitis, urinary tract infection, pyelonephritis, among others. Given her age and persistence of symptoms will do CT scan as well as routine labs. She declines need for anything for pain right now. Labs are reviewed and essentially normal, platelets are mildly low at 131,000 thirty one thousand. CRP is 2. Urinalysis negative. CT scan by my review showed some inflammatory changes along the sigmoid colon, final radiology read is reviewed they note that she has mild diverticulitis in that area without evidence of perforation or abscess. They also note that she has some thickening of the colon and some associated mildly enlarged lymph nodes, and recommend colonoscopy just to rule out a neoplastic process. I discussed all this with the patient and her son. We talked about antibiotic coverage and she would like to proceed with that, will prescribe Augmentin. Discussed that sometimes diver ticulitis gets worse despite treatment and if so she will need to come back. She says she is scheduled for colonoscopy in June, had 1 3 years ago. She will discuss moving that up with her primary doctor. She understands reasons to return. Otherwise Augmentin, clear liquids to bland diet, Tylenol as needed. Primary care follow-up for recheck next week. Vital Signs Vital signs: Initial Vital Signs Temperature 98.7 F 11/07/24 12:11 Temperature Source Oral 11/07/24 12:11 Pulse Rate 86 11/07/24 12:11 Respiratory Rate 20 11/07/24 12:11 Blood Pressure 115/78 11/07/24 12:11 Blood Pressure Mean 90 11/07/24 12:11 Pulse Oximetry 96 11/07/24 12:11 Oxygen Delivery Method Room Air 11/07/24 12:11 Vital Signs Temperature 98.7 F 11/07/24 12:11 Pulse Rate 86 11/07/24 12:11 Respiratory Rate 20 11/07/24 12:11 Blood Pressure 115/78 11/07/24 12:11 Pulse Oximetry 96 11/07/24 12:11 Oxygen Delivery Method Room Air 11/07/24 12:11 Temperature 99.3 F 11/07/24 14:33 Pulse Rate 71 11/07/24 16:51 Respiratory Rate 16 11/07/24 16:51 Blood Pressure 118/60 11/07/24 16:51 Pulse Oximetry 96 11/07/24 16:51 Oxygen Delivery Method Room Air 11/07/24 16:51 Medications Administered Medications: Discontinued Medications Generic Name Dose Route Start Last Admin Trade Name Babita PRN Reason Stop Dose Admin Sodium Chloride 500 mls @ 500 mls/hr 11/07/24 14:01 11/07/24 15:26 0.9 % Sodium Chloride 500 Ml IV 11/07/24 15:00 Infused .Q1H ONE Infusion Morphine Sulfate 4 mg 11/07/24 14:54 11/07/24 16:53 Morphine 4 Mg/Ml Inj IVP 11/07/24 14:55 Not Given ONCE ONE Ondansetron HCl 4 mg 11/07/24 14:54 11/07/24 15:30 Ondansetron 2 Mg/Ml Inj IVP 11/07/24 14:55 Not Given ONCE ONE Medical Decision Making Lab Data Lab results reviewed: Yes I reviewed the patient's lab results Labs: Lab Results 11/07/24 11/07/24 Range/Units 14:50 15:09 WBC 10.90 (4.50-11.00) K/uL RBC 4.28 (4.00-5.20) m/uL Hgb 13.6 (12.0-16.0) gm/dL Hct 40.5 (33.0-51.0) % MCV 95 (80-100) fL MCH 32 (26-34) pg MCHC 34 (32-36) gm/dL RDW Coeff of Ina 13.2 (11.5-15.5) % Plt Count 131 L (140-440) K/uL Neut % (Auto) 77.2 H (42.0-72.0) % Lymph % (Auto) 14.9 L (20-44) % [place] % (Auto) 6.1 (0.0-11.0) % Eos % (Auto) 1.3 (0.0-7.0) % Baso % (Auto) 0.2 (0.0-3.0) % Neut # (Auto) 8.40 H (1.7-7.0) K/uL Lymph # (Auto) 1.60 (0.90-2.90) K/uL [place] # (Auto) 0.70 (0.00-0.90) K/UL Eos # (Auto) 0.14 (0.00-0.50) K/uL Baso # (Auto) 0.02 (0.00-0.30) K/uL Abs Immat Gran (auto) 0.03 (0.00-0.30) K/uL Imm/Tot Granulo (auto) 0.3 % Sodium 139 (135-149) mmol/L Potassium 3.5 L (3.6-5.1) mmol/L Chloride 105 (96-114) mmol/L Carbon Dioxide 25 (20-32) mmol/L Anion Gap 9 (7-15) mEq/L BUN 16 (7-30) mg/dL Creatinine 0.6 (0.5-1.5) mg/dL Estimated GFR 95 ml/min Glucose 89 (60-115) mg/dL Lactate 0.9 (0.5-1.9) mmol/L Calcium 8.7 (8.4-10.6) mg/dL Total Bilirubin 0.7 (0.1-1.5) mg/dL Direct Bilirubin 0.1 (0.0-0.5) mg/dL AST 24 (12-35) U/L ALT 20 (4-35) U/L Alkaline Phosphatase 64 (40-150) U/L C-Reactive Protein 2.0 H (0.5-1.0) mg/dL Total Protein 6.2 (6.0-8.3) g/dL Albumin 3.9 (3.3-5.0) g/dL Lipase 53 (23-300) U/L Urine Color Yellow (Yellow) Urine Appearance Clear (Clear) Urine pH 6.0 (5.0-8.5) Ur Specific [place] 1.015 (1.000-1.030) Urine Protein Negative (Negative) Urine Glucose (UA) Negative (Negative) Urine Ketones 1+ A (Negative) Urine Blood Trace-intact A (Negative) Urine Nitrite Negative (Negative) Urine Bilirubin Negative (Negative) Urine Urobilinogen 0.2 (0.2-1.0) Ur Leukocyte Esterase Negative (Negative) Urine RBC 0-2 (0-2) Urine WBC 0-2 (0-5) Ur Squamous Epith Cells None (None-Few) Urine Bacteria None (None) Imaging Data CT scan - abdomen: Attestation: I have reviewed the pertinent imaging results. Radiologist's impression: [place] [address] Diagnostic Imaging Report Patient: Juliana Leal MR#: [id number] : 1950 Acct:[id number] Loc: ED Service Date: 11/07/[address]: Ordering Physician: Lucila Terry M.D. Date of Service: 11/07/24 Procedure(s): CT abdomen pelvis w con Accession Number(s): [id number] cc: Brittany AVILEZ CNP; Lucila Terry M.D.~ For Patients: As a result of the Cures Act, medical imaging exams and procedure reports are released immediately into your electronic medical record. You may view this report before your referring provider. If you have questions, please contact your health care provider. INDICATION: Diffuse abdominal pain. TECHNIQUE: CT abdomen and pelvis acquired with mL Isovue 370 IV contrast. COMPARISON: None. FINDINGS: Lower chest: Scattered subsegmental atelectasis. No focal consolidation. Liver: No suspicious focal hepatic lesion. Gallbladder and bile ducts: Unremarkable. Pancreas: Unremarkable. Spleen: Punctate calcified granulomas. Splenule is noted. Adrenal glands: Unremarkable. Kidneys: Kidneys enhance symmetrically, without hydronephrosis. Simple appearing left renal cysts. Multiple punctate nonobstructing bilateral renal calculi. Retroperitoneum: No lymphadenopathy. Bowel and mesentery: Postsurgical changes of the sigmoid colon. Acute diverticulitis at the proximal sigmoid colon. No evidence of perforation or abscess formation at this time. Mild circumferential wall thickening of the proximal sigmoid colon. Normal appendix. Tiny hiatal hernia. Bladder: Decompressed, suboptimally evaluated. Reproductive organs: Post hysterectomy. Pelvic lymph nodes: Prominent mesorectal lymph nodes measuring up to 0.8 cm (series 2, image 101). Vessels: Scattered atherosclerotic calcifications. Abdominal wall: No acute abdominal wall abnormality. Large lipomatous lesion in the left anterior lateral abdominal wall. Bones: Multilevel degenerative changes of the spine. Bones are diffusely osteopenic. IMPRESSION: 1. Acute uncomplicated diverticulitis at the proximal sigmoid colon. 2. Mild circumferential wall thickening of the proximal sigmoid colon, may be secondary to muscular hypertrophy. However, there are also enlarged mesorectal lymph nodes present, which raises concern for underlying neoplasm. Follow-up colonoscopy is recommended. 3. Additional incidental findings as above. Please note that all CT scans at this facility use dose modulation, iterative reconstruction, and/or weight-based dosing when appropriate to reduce radiation dose to as low as reasonably achievable. Dictated by Alessandra Teran MD @ 11/07/2024 4:34:02 PM Discharge Plan Discharge Clinical Impression: Diverticulitis Patient Disposition: Home, Self-Care Condition: Stable Instructions: Diverticulitis (DC) Additional Instructions: I do not see a prior allergy to Augmentin, so I have prescribed that to take at home. Most of the time, diverticulitis improves with oral antibiotics. Sometimes it gets worse in spite of antibiotics, so if you have worsening pain or new symptoms such as fevers, chills, vomiting, you should come back to the emergency department to be re-evaluated. As we discussed, the radiologist feels she should have a colonoscopy to follow-up that section of thickening of your colon, there are some mildly enlarged lymph nodes in that area which may be related to your current infection, but nonetheless he would recommend colonoscopy to further evaluate. Please arrange this to your primary care doctor. Prescriptions: No Action levothyroxine [Synthroid] 100 mcg tablet 100 mcg PO QDAY Qty: 90 3RF senna 8.6 mg capsule 8.6 mg PO QDAY PRN (Reason: constipation) Qty: 90 3RF Follow Up/Referrals: Brittany Navarro, SENIOR HEALTH CONSULTANT, BIOSTATISTICS PROFESSOR [Primary Care Provider] - Stand Alone Forms: [employer] Info Instructions
[2024-11-07 14:18] LABS: Lactate Sepsis w/Reflex* 0.9 mmol/L (0.5-1.9)
[2024-11-07 14:19] LABS: Basophils Absolute Auto 0.02 K/uL (0.00-0.30); Basophils Percent Auto 0.2 % (0.0-3.0); Eosinophils Absolute Auto 0.14 K/uL (0.00-0.50); Eosinophils Percent Auto 1.3 % (0.0-7.0); Hematocrit 40.5 % (33.0-51.0); Hemoglobin* 13.6 gm/dL (12.0-16.0); Immature Granulocytes Abs Auto 0.03 K/uL (0.00-0.30); Immature Granulocytes Pct Auto 0.3 %; Lymphocytes Percent Auto 14.9 % (20-44); Mean Corpuscular HGB Conc 34 gm/dL (32-36); Mean Corpuscular Hemoglobin 32 pg (26-34); Mean Corpuscular Volume 95 fL (80-100); Monocytes Percent Auto 6.1 % (0.0-11.0); Neutrophils Percent Auto 77.2 % (42.0-72.0); Platelet Count* 131 K/uL (140-440); RDW Coefficient of Variation % 13.2 % (11.5-15.5); Red Blood Count 4.28 m/uL (4.00-5.20)
[2024-11-07] MEDS: 0.9 % SODIUM CHLORIDE 500 ML 500 ML IV (14:21)
[2024-11-07 14:26] LABS: Slide Review Reflex No
[2024-11-07 14:33] VITALS: BP 121/59; PULSE 74; RESP 14; TEMP 37.4; O2SAT 97
--- OUTSIDE RECORDS SUMMARY | 2024-11-07 14:42 | XMS_ITS | Encounter Summary ---
Author Organization [place] Address [facility] [place] [address] Care Team Providers Care Heavy Equipment Service Technician Name Role Phone Brittany Barrera MD Primary Care Provide r Maryjo Tinoco MD Primary Care Provider Brittany Navarro NP Primary Care Provider Encounter Details Date Type Department Care Team (Late st Contact Info) Description 06/25/2008 [facility] Medical Advice Initial Department [facility] Social History Tobacco Use Types Packs/Day Years Used Date Smoking Tobacco: Never Alcohol Use Standard Drinks/Week Comments Yes 0 (1 standard drink = 0.6 oz pur e alcohol) occ. 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
--- OUTSIDE RECORDS SUMMARY | 2024-11-07 14:42 | XMS_ITS | Encounter Summary ---
Author Organization [place] Address [address] [place] [address]. [place] [address] Care Team Providers Care Pediatric Assistant Name Role Phone Brittany Barrera MD Primary Care Provide r Maryjo Tinoco MD Primary Care Provider [phone] Brittany Navarro NP Primary Care Provider Encounter Details Date Type Department Care Team (Late st Contact Info) Description 02/21/2008 [facility] Medical Advice [address] [place] [address] William Locke MD [address] [place], [place] [address] [address] Social History Tobacco Use Types Packs/Day Years Used Date Smoking Tobacco: Never Alcohol Use Standard Drinks/Week Comments Yes 0 (1 standard drink = 0.6 oz pur e alcohol) occ. 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
--- OUTSIDE RECORDS SUMMARY | 2024-11-07 14:42 | XMS_ITS | Clinical Summary ---
Author Organization [place] Address [address] [place] [address] Care Team Providers Care Cistern Room Working Supervisor Name Role Phone Brittany Navarro NP Primary [...] mouth daily. 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 Not on file Not [...] BILATERAL W/ GA Routine 06/17/2024 9:48 AM SURGICAL TECH Visit for screening mammogram DX BONE DENSITY Routine 10/01/2015 8:24 AM SURGICAL TECH Disorder of bone, unspecified Disorder of cartilage, unspecified LIPID PROFILE Routine 09/28/2015 8:41 AM SURGICAL TECH [facility] COLONOSCOPY W BIOPSY Routine 04/30/2013 SCANNING [...] Screening Bilateral w/ Ga (06/17/2024 9:48 AM SURGICAL TECH) Anatomical Region Laterality Modality Breast Bilateral Mammography Impressions 06/17/2024 12:03 PM SURGICAL TECH IMPRESSION: ACR BI-RADS Category 1: Negative BREAST CANCER SCREENING RECOMMENDATION: Routine yearly mammography beginning at age 40 or as discussed with your provider. The results and recommendations of this examination will be communicated to the patient. Andrae Yuan MD Narrative 06/17/2024 12:03 PM SURGICAL TECH BILATERAL FULL FIELD DIGITAL SCREENING MAMMOGRAM WITH [...] Result * DX Hip/Pelvis/Spine (10/01/2015 8:24 AM SURGICAL TECH) Anatomical Region Laterality Modality Dexa Other Narrative 10/03/2015 10:31 AM SURGICAL TECH BONE MINERAL DENSITY BY DXA SCANNING 10/01/15 [...] was performed on your patient using our [employer] iDXA densitometer. The results are summarized and [...] was performed on your patient using our [employer] iDXAdensitometer. The results are summarized and a [...] * (ABNORMAL) Lipid Profile (09/28/2015 8:41 AM SURGICAL TECH) Cholesterol 218(H) <=200 mg/dL 09/28/2015 11:[address] [facility] Triglycerides 114 0 - 150 mg/dL 09/28/2015 11:[address] [facility] Direct Measure HDL 71 >=40 mg/dL 09/28/2015 11:[address] [facility] LDL Cholesterol Calculated 124 0 - 130 mg/dL 09/28/2015 11:[address] [facility] Blood specimen (specimen) Venipuncture / Unknown 09/28/2015 8:41 AM SURGICAL TECH 09/28/2015 8:41 AM SURGICAL TECH Xi Shi MD LAB - BLOOD ORDERABLES Final Result Performing Organization Address City/State/[facility] Co de Phone Number [facility] [address] [place] [address], [facility] [address] [place] [address] * COLONOSCOPY W BIOPSY (04/30/2013) Maryjo Tinoco MD PROCEDURES Final Result * Hepatits C antibody ([facility]) (05/13/2012 9:30 AM CDT) HCV Antibody NON-REACTI VE NON-REACTI VE [facility] SIGNAL TO CUT OFF - [facility] 0.01 <1.00 [facility] Blood specimen (specimen) 05/13/2012 9:30 AM CDT 05/14/2012 1:25 AM CDT Narrative Resulting Agency Comment Performing Organization Information: [facility] [address] [place] [address] Aleksandar Gonzales M.D. us Maryjo Tinoco MD LAB - BLOOD ORDERABLES Final R esult Performing Organization Address City/[facility] [address]/[facility] Co de Phone Number [employer] [address] [place] [address] * TSH (05/13/2012 9:06 AM CDT) TSH 1.47 0.40 - 4.50 mIU/L [facility] Blood specimen (specimen) 05/13/2012 9:06 AM CDT 05/14/2012 1:26 AM CDT Narrative Resulting Agency Comment Performing Organization Information: CB [facility] [address] [place] [address] Aleksandar Gonzales M.D. us Maryjo Tinoco MD LAB - BLOOD ORDERABLES Final R esult Performing Organization Address [facility] [address]/[facility] Co de Phone Number [facility] [address] [place] [address] * Glucose (01/12/2011 11:25 AM CDT) Glucose 89 60 - 99 mg/dL [facility] 01/12/2011 11:2 5 AM CDT 01/12/2011 11:40 AM CDT us Kristy Tomas MD LAB - BLOOD ORDERABLES Fi nal Result [facility] [address] [address], [facility] [phone] from Last 3 Months or Most Recently Relevant to Health Maintenance Insurance [facility] MEDICARE ADVANTAGE [facility] MEDICARE ADVANTAGE OTHER Care Teams Cistern Room Working Supervisor Relationship Specialty Start Date End Date Brittany Navarro NP [address] [address] PCP - General 06/12/24
--- OUTSIDE RECORDS SUMMARY | 2024-11-07 14:42 | XMS_ITS | Encounter Summary ---
Author Organization [place] Address Critical access hospital0 [facility] [place] [address] Care Team Providers Care Package Crimper Name Role Phone Brittany Barrera MD Primary Care Provide r Maryjo Tinoco MD Primary Care Provider Brittany Navarro NP Primary Care Provider [phone] Encounter Details Date Type Department Care Team (Late st Contact Info) Description 12/19/2006 [facility] Advice [address] [address] [facility] Social History Tobacco Use Types Packs/Day Years Used Date Smoking Tobacco: Never Alcohol Use Standard Drinks/Week Comments Yes 0 (1 standard drink = 0.6 oz pur e alcohol) occ. 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
--- OUTSIDE RECORDS SUMMARY | 2024-11-07 14:42 | XMS_ITS | Encounter Summary ---
Author Organization [place] Address [facility] [place] [address] Care Team Providers Care Residence Supervisor Name Role Phone Brittany Barrera MD Primary Care Provide r Maryjo Tinoco MD Primary Care Provider [phone] Brittany Navarro NP Primary Care Provider Encounter Details Date Type Department Care Team (Late st Contact Info) Description 06/26/2007 [facility] Advice Initial Department [facility] Social History Tobacco Use Types Packs/Day Years Used Date Smoking Tobacco: Never Alcohol Use Standard Drinks/Week Comments Yes 0 (1 standard drink = 0.6 oz pur e alcohol) occ. 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
--- OUTSIDE RECORDS SUMMARY | 2024-11-07 14:42 | XMS_ITS | Encounter Summary ---
Author Organization [place] Address [facility] [place] [address] Care Team Providers Care Welding Machine Operator Submerged Arc Name Role Phone Brittany Barrera MD Primary Care Provide r Maryjo Tinoco MD Primary Care Provider Brittany Navarro NP Primary Care Provider [phone] Encounter Details Date Type Department Care Team (Late st Contact Info) Description 09/22/2009 [facility] Medical Advice [address] [address] [facility] Social History Tobacco Use Types Packs/Day Years Used Date Smoking Tobacco: Never Alcohol Use Standard Drinks/Week Comments Yes 0 (1 standard drink = 0.6 oz pur e alcohol) occ. 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
--- OUTSIDE RECORDS SUMMARY | 2024-11-07 14:42 | XMS_ITS | Encounter Summary ---
Author Organization [place] Address Critical access hospital0 [place] [address] Care Team Providers Care Data Integrity Analyst Name Role Phone Brittany Barrera MD Primary Care Provide r Maryjo Tinoco MD Primary Care Provider [phone] Brittany Navarro NP Primary Care Provider Encounter Details Date Type Department Care Team (Late st Contact Info) Description 06/21/2006 [facility] Medical Advice [address] [address] [facility] Social History Tobacco Use Types Packs/Day Years Used Date Smoking Tobacco: Never Alcohol Use Standard Drinks/Week Comments Yes 0 (1 standard drink = 0.6 oz pur e alcohol) occ. 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
--- OUTSIDE RECORDS SUMMARY | 2024-11-07 14:42 | XMS_ITS | Encounter Summary ---
Author Organization [place] Address [address] [place] [address]. [place] [address] Care Team Providers Care Magneto Repairer Name Role Phone Brittany Barrera MD Primary Care Provide r Maryjo Tinoco MD Primary Care Provider [phone] Brittany Navarro NP Primary Care Provider Encounter Details Date Type Department Care Team (Late st Contact Info) Description 09/20/2007 [facility] Advice [address] [address] Georgia Smart MD [address] [place] [address] Social History Tobacco Use Types Packs/Day Years Used Date Smoking Tobacco: Never Alcohol Use Standard Drinks/Week Comments Yes 0 (1 standard drink = 0.6 oz pur e alcohol) occ. 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
--- OUTSIDE RECORDS SUMMARY | 2024-11-07 14:42 | XMS_ITS | CCD ---
Author Name Interface, [id number] Address [facility]0 [facility] [address] [place] [address] [facility] Address [address] [facility] [address] [place] [address] Care Team Providers Care Grab Jack Man Name Role Phone Kaley Vallejo Unavailable Care Plan Reason for Visit Social History
--- OUTSIDE RECORDS SUMMARY | 2024-11-07 14:42 | XMS_ITS | Continuity of Care Document ---
Author Organization [facility] Address [address] [address] [place] [address] Care Team Providers Care Dental Practitioner Name Role Phone [place], [place] Unavailable Unav ailable Procedures Procedure Date Colono Colono Advance Directives Directive Yes / No Effective Date File Name No Information Encounters Encounter Description Practice Location Reason(s) For Visit Diagnoses Date Provider Providers Copied on Encounter [facility], [address] [address], [place], [place], [id number], [place] [facility] No Information [facility]. [address] [address], [place], [place], [id number], . tel:[phone] Family History Family Member Type Diagnosis Age At Onset No Information Payers Payer name Insurance type Covered constitution party ID Authoriza tion(s) Blue Cross Medicare Advantage [id number] Social History Type Description Quantity Date [...]
--- OUTSIDE RECORDS SUMMARY | 2024-11-07 14:43 | XMS_ITS | Encounter Summary ---
Author Organization [place] Address [facility] [place] [address] Care Team Providers Care Blind Installer Name Role Phone Brittany Barrera MD Primary Care Provide r Maryjo Tinoco MD Primary Care Provider Brittany Navarro NP Primary Care Provider Encounter Details Date Type Department Care Team (Late st Contact Info) Description 12/28/2010 [facility] [place] [address] [address] [facility] Social History Tobacco Use Types Packs/Day Years Used Date Smoking Tobacco: Never Alcohol Use Standard Drinks/Week Comments Yes 0 (1 standard drink = 0.6 oz pur e alcohol) occ. 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
--- OUTSIDE RECORDS SUMMARY | 2024-11-07 14:43 | XMS_ITS | Continuity of Care Document ---
Author Organization [facility] Address [address] [address] [place] [address] Care Team Providers Care Maintenance Welder Name Role Phone [facility] [place] Un[place] Unav ailable Procedures Procedure Date Colono Colon Colono Pt Doc Pt W/o Advance Directives Directive Yes / No Effective Date File Name No Information Encounters Encounter Description Practice Location Reason(s) For Visit Diagnoses Date Provider Providers Copied on Encounter [facility], [address] [address], [place], [place], [id number], [place] [facility] No Information [facility]. [address] [address], [place], [place], [id number], . tel:[phone] Family History Family Member Type Diagnosis Age At Onset No Information Payers Payer name Insurance type Covered democrat ID Authoriza tion(s) Medicare NGS MB [id number] For Life [id number] Social History Type Description Quantity Date Captured [...]
--- OUTSIDE RECORDS SUMMARY | 2024-11-07 14:43 | XMS_ITS | Encounter Summary ---
Author Organization [place] Address [facility] [place] [address] Care Team Providers Care Corporate Development Intern Name Role Phone Brittany Barrera MD Primary Care Provide r Maryjo Tinoco MD Primary Care Provider [phone] Brittany Navarro NP Primary Care Provider [phone] Encounter Details Date Type Department Care Team (Late st Contact Info) Description 12/20/2010 [facility] [place] [address] [address] [facility] Social History Tobacco Use Types Packs/Day Years Used Date Smoking Tobacco: Never Alcohol Use Standard Drinks/Week Comments Yes 0 (1 standard drink = 0.6 oz pur e alcohol) occ. 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
--- OUTSIDE RECORDS SUMMARY | 2024-11-07 14:43 | XMS_ITS | Continuity of Care Document ---
Author Organization [facility] Address [address] [address] [place] [address] Phone Care Team Providers Care Field Crew Chief Name Role Phone Gerardo Morales CRNA Unavailable [...] Diagnoses Date Provider Providers Copied on Encounter [facility] JOSE LUIS, [address] [address], [place], [id number], [place] tel:[phone] [facility] No Information 2 Andrew Carrillo. [address] [facility], [place], [place], [id number], [place]. tel:[phone] [facility] JOSE LUIS, [address] [address], [place], [id number], [place] tel:[phone] [facility] GI Symptoms or Concerns (chief complaint) Benign neoplasm of transverse colonPersonal history of colonic polypsEncounte r for screening for malignant neoplasm of colonBenign neoplasm of transverse colonPersonal history of colonic polyps 2 No Information Referring Provider: Referral Self, USE FOR SELF REFERRALS. [facility] JOSE LUIS, [address] [address], [place], [id number], [place] tel:[phone] [facility] No Information 0 Brando Bonilla. [address] [facility], [address], [place], [place], [address], [place]. tel:[phone] [facility] JOSE LUIS, [address] [address], [place], [id number], [place] tel:[phone] [facility] Epigastric painBenign gastric polypEpigastri c painPolyp of stomach and duodenum 0 Brando Bonilla. [address] [facility], [address], [place], [place], [id number], [place]. tel:[phone] Referring Provider: Michael Del Angel, [address] [facility] [address], [place], [address] . tel:[phone] Offic/outpt E&m Estab Mod-hi 2 [facility] JOSE LUIS, [address] [address], [place], [id number], [place] tel:[phone] [facility] GI Symptoms or Concerns (chief complaint) Epigastric painGastroesop hageal reflux disease, esophagitis presence not specifiedFamil y history of colon cancer in mother 0 Gómez CEJA Harsh. [address] [facility], [address], [place], [place], [id number], [place]. tel:[phone] Referring Provider: Mitchell Harper MD D, [address], [place], [address]. tel:[phone] [facility], [address] [address], [place], [place], [address], [place] tel:[phone] [facility] Polyp of colon, unspecified part of colon, unspecified typeDiverticul osis large intestine w/o perforation or abscess w/o bleedingEncoun ter for screening for malignant neoplasm of colonPersonal history of colonic polypsBenign neoplasm of transverse colonDvrtclos of lg int w/o perforation or abscess w/o bleeding 9 No Information Referring Provider: Referral Self, USE FOR SELF REFERRALS. [facility], [address] [address], [place], [place], [id number], tel:[phone] [facility] No Information 9 No Information Offic Cons New/estab Mod-hi 60 [facility] [employer] [place], [address] [address], [place], [place], [id number], tel:[phone] [facility] RLQ PainDiverticul itis Of Colon 7 No Information Referring Provider: Georgia Smart MD T, [address], [place], [address] . tel:[phone] Family History Family Member Type Diagnosis Age [...] i-directional interface ; Source: Other Registry Novel [id number], all formulations administered Note: [facility] bi-direct ional [...] Registry Payers Payer name Insurance type Covered democrat ID Authoriza tion(s) Blue Cross Medicare Advantage [id number] Social History Type Description Quantity Date [...]
--- OUTSIDE RECORDS SUMMARY | 2024-11-07 14:43 | XMS_ITS | CCD ---
Author Name Interface, [place] Address [address] [facility] [address] [place] [address] [facility] Address [address] [facility] [address] [place] [address] Care Team Providers Care Body Art Technician Name Role Phone Kaley Vallejo Unavailable Unavailable Care Plan Date Type Value 01/03/2024 APPOINTMENT GENETICS NEW PT EXTERNAL REFERRAL 60 MIN 01/03/2024 APPOINTMENT LAB 15 MIN Reason for Visit LAB 15 MIN Social History Date Name Value Sex Female
--- OUTSIDE RECORDS SUMMARY | 2024-11-07 14:43 | XMS_ITS | Encounter Summary ---
Author Organization [place] Address [address] [place] [address]. 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
--- OUTSIDE RECORDS SUMMARY | 2024-11-07 14:43 | XMS_ITS | Continuity of Care Document ---
Author Organization [facility] Address [address] [address] [place] [address] Phone Care Team Providers Care Recruitment Coordinator Name Role Phone Unavailable Unavailable Unavailable Allergies, [...] [facility] JOSE LUIS, [address] [address], [place], [place], [id number], tel:[phone] [facility] Polyp of colon, unspecified part [...] democrat ID Authoriza tion(s) Medicare NGS MB [id number] [id number] Social History Type Description Quantity Date Captured [...]
[2024-11-07 14:59] LABS: Appearance Urine Clear (Clear); Bilirubin Urine Negative (Negative); Blood Urine Trace-intact (Negative); Color Urine Yellow (Yellow); Glucose Urine Negative (Negative); Ketones Urine 1+ (Negative); Leukocyte Esterase Urine Negative (Negative); Nitrite Urine Negative (Negative); Protein Urine Negative (Negative); Specific Gravity Urine 1.015 (1.000-1.030); Urobilinogen Urine 0.2 (0.2-1.0)
[2024-11-07 15:07] LABS: RBC Urine 0-2 (0-2); WBC Urine 0-2 (0-5)
[2024-11-07 15:32] LABS: Albumin* 3.9 g/dL (3.3-5.0); Chloride* 105 mmol/L (96-114); Potassium* 3.5 mmol/L (3.6-5.1); Sodium* 139 mmol/L (135-149)
[2024-11-07 15:34] LABS: Blood Urea Nitrogen* 16 mg/dL (7-30); Creatinine* 0.6 mg/dL (0.5-1.5); Estimated Glomerular Filt Rate 95 ml/min
[2024-11-07 15:35] LABS: Alanine Aminotransferase* 20 U/L (4-35); Alkaline Phosphatase* 64 U/L (40-150); Anion Gap 9 mEq/L (7-15); Aspartate Amino Transferase* 24 U/L (12-35); Bilirubin Direct* 0.1 mg/dL (0.0-0.5); Bilirubin Total* 0.7 mg/dL (0.1-1.5); Calcium* 8.7 mg/dL (8.4-10.6); Carbon Dioxide* 25 mmol/L (20-32); Glucose* 89 mg/dL (60-115); Lipase* 53 U/L (23-300); Total Protein* 6.2 g/dL (6.0-8.3)
[2024-11-07 16:51] VITALS: BP 118/60; PULSE 71; RESP 16; O2SAT 96
== END 2024-11-07 16:55 | disposition home or self-care (01) ==
PROVIDERS: Emergency Provider Emergency Medicine; PCP Nurse Practitioner Family
DX: K57.92 Diverticulitis of intestine, part unspecified, without perforation or abscess without bleeding (principal)
CPT/HCPCS: 36415; 74177; 80048; 80076; 81001; 83605; 83690; 85025; 86140; 96361; 96374; 96375; 99284; 99285; J7030; Q9967

== ENCOUNTER 2024-12-19 12:15 | Outpatient (CLI) | payer MEDICARE, SELFPAY | END 2024-12-19 12:16 | disposition home or self-care (01) | PROVIDERS: PCP Nurse Practitioner Family; Visit Provider Nurse Practitioner Family | DX: R07.89 Other chest pain (principal); E03.9 Hypothyroidism, unspecified; R53.83 Other fatigue; F41.9 Anxiety disorder, unspecified | CPT/HCPCS: 80053; 84484; 85025; 85379 ==

== ENCOUNTER 2024-12-31 09:41 | Outpatient (CLI) | payer MEDICARE, SELFPAY | END 2024-12-31 09:42 | disposition home or self-care (01) | LOC: RAD 09:41 | PROVIDERS: PCP Nurse Practitioner Family; Visit Provider Nurse Practitioner Family | DX: R07.89 Other chest pain (principal); R94.31 Abnormal electrocardiogram [ECG] [EKG] | CPT/HCPCS: 93306 ==

== ENCOUNTER 2025-01-26 12:37 | Outpatient (CLI) | payer MEDICARE, SELFPAY | END 2025-01-26 12:38 | disposition home or self-care (01) | PROVIDERS: PCP Nurse Practitioner Family; Visit Provider Nurse Practitioner Family | DX: R93.1 Abnormal findings on diagnostic imaging of heart and coronary circulation (principal); R07.89 Other chest pain | CPT/HCPCS: 93308; 96374 ==

== ENCOUNTER 2025-01-29 10:55 | Outpatient (CLI) | payer MEDICARE, SELFPAY ==
--- OUTSIDE RECORDS SUMMARY | 2018-06-13 08:30 | XMS_ITS | Continuity of Care Document ---
Author Organization [facility] Address [address] [address] [place] [address] Phone Care Team Providers Care Avionics Mechanic Name Role Phone Unavailable Unavailable Unavailable Allergies, Adverse Reactions, Alerts Substance Reaction Status Criticality aspirin Swelling(severe) Active No Informat ion Medications Medication Instructions Dosage Effective Dates (start - stop) Status Comments Synthroid 112 mcg tablet take 1 tablet by oral route every day 112 MCG - Active Procedures Procedure Date Level Iv-surg Path Gross/micro 18 CRS Charges Advance Directives Directive Yes / No Effective Date File Name No Information Encounters Encounter Description Practice Location Reason(s) For Visit Diagnoses Date Provider Providers Copied on Encounter [facility], [address] [address], [place], [place], [id number], tel:[phone] [facility] Polyp of colon, unspecified part of colon, unspecified typeEncounter for screening for malignant neoplasm of colonPersonal history of colonic polypsBenign neoplasm of cecumBenign neoplasm of transverse colon 201 8 No Information Referring Provider: Referral Self, USE FOR SELF REFERRALS. Family History Family Member Type Diagnosis Age At Onset No Information Payers Payer name Insurance type Covered green party ID Authoriza tion(s) Medicare NGS MB [id number] [address] [employer] [id number] Social History Type Description Quantity Date Captured Comments Alcohol Use Details Unknown Caffeine Use Details Unknown Tobacco Use Status No Information Smoking Status Never smoker Sex Female Vital Signs Date / Time: Height Weight BMI Pulse Rate Blood Pressure Temperature Respiratory Rate Body Surface Area Head Circumference Head Circ. Percentile Wt./Mark. Percentile BMI percentile Pulse Ox Inhaled Ox 62.00 in 61.220 kg (135.00 lbs) 24.7 0 kg/m eter (2) 66 /min 115/69 mm[Hg] 0.00 F 16 /min 93 % Chief Complaint And Reason For Visit No Information Reason For Referral Reason For Referral No Information History Of Present Illness Encounter Date Complaint History Of Prese nt Illness No Information Functional Status Date Functional Assessmen t No Information Instructions Date Instruction Additional Infor mation Diverticulosis/Diverticulitis Re lated to Polyp of colon, unspecified part of colon, unspecified type Colon Polyps Related to Polyp of colon, unspecified part of colon, unspecified type Colon Cancer Prevention Related to Polyp of colon, unspecified part of colon, unspecified type High Fiber Diet Related to Polyp of colon, unspecified part of colon, unspecified type Assessments Type Assessment Date assessment Polyp of colon, unspecified part of colon, unspecified type Patient Care Teams Name Effective Dates (start - stop) Status Members No Information
--- OUTSIDE RECORDS SUMMARY | 2018-06-13 08:31 | XMS_ITS | Continuity of Care Document ---
Author Organization [facility] Address [address] [address] [place] [address] Care Team Providers Care Precision Lens Grinder Apprentice Name Role Phone [facility] [place] Un[place] Unav ailable Procedures Procedure Date Colono Colon Colono Pt Doc Pt W/o Advance Directives Directive Yes / No Effective Date File Name No Information Encounters Encounter Description Practice Location Reason(s) For Visit Diagnoses Date Provider Providers Copied on Encounter [facility], [address] [address], [place], [place], [id number], [place] [facility] No Information [facility]. [address] [address], [place], [place], [address], . tel:[phone] Family History Family Member Type Diagnosis Age At Onset No Information Payers Payer name Insurance type Covered republican ID Authoriza tion(s) Medicare NGS MB [id number] For Life [id number] Social History Type Description Quantity Date Captured Comments Sex Female Smoking Status No Information Chief Complaint And Reason For Visit No Information Reason For Referral Reason For Referral No Information History Of Present Illness Encounter Date Complaint History Of Prese nt Illness No Information Functional Status Date Functional Assessmen t No Information Instructions Date Instruction Additional Infor mation No Information Assessments Type Assessment Date No Information Patient Care Teams Name Effective Dates (start - stop) Status Members No Information
--- OUTSIDE RECORDS SUMMARY | 2019-07-03 09:46 | XMS_ITS | Continuity of Care Document ---
Author Organization [facility] Address [address] [address] [place] [address] Care Team Providers Care Daycare Manager Name Role Phone [place], [place] Unavailable Unav ailable Procedures Procedure Date Colono Colono Advance Directives Directive Yes / No Effective Date File Name No Information Encounters Encounter Description Practice Location Reason(s) For Visit Diagnoses Date Provider Providers Copied on Encounter [facility], [address] [address], [place], [place], [id number], [place] [facility] No Information [facility]. [address] [address], [place], [place], [address], . tel:[phone] Family History Family Member Type Diagnosis Age At Onset No Information Payers Payer name Insurance type Covered libertarian ID Authoriza tion(s) Blue Cross Medicare Advantage BL [id number] Social History Type Description Quantity Date Captured [...]
--- OUTSIDE RECORDS SUMMARY | 2022-07-12 03:01 | XMS_ITS | Continuity of Care Document ---
Author Organization [facility] Address [address] [address] [place] [address] Phone Care Team Providers Care Intelligence Manager Name Role Phone Gerardo Morales CRNA Unavailable Allergies, Adverse Reactions, Alerts Substance Reaction Status Criticality erythromycin base Nausea/Vomiting Active No Info rmation Sulfa (Sulfonamide Antibiotics) tongue sores Active No Information HYDROCODONE BITARTRATE Active No In formation acetaminophen Active No Information erythromycin base stomach pain Active No Informa tion ethyl alcohol stomach pain Active No Information KETOROLAC TROMETHAMINE swelling face Active No I nformation aspirin swelling face Active No Information Medications Medication Instructions Dosage Effective Dates (start - stop) Status Comments omeprazole 20 mg capsule,delayed release take 1 capsule by oral route 2 times every day 30 minutes to 1 hour before a meal as needed 20 MG - Active Synthroid 112 mcg tablet Take one tablet by mouth daily - Active omeprazole 20 mg capsule,delayed release take 1 capsule by oral route 2 times every day 30 minutes to 1 hour before a meal 20 MG - No Longer Active Procedures Procedure Date Level Iv-surg Path Gross/micro 22 CRS Charges [facility] End[facility]; W/bx 1/mx Level Iv-surg Path Gross/micro 20 Offic/outpt E&m Estab Mod-hi 2 20 Level Iv-surg Path Gross/micro 19 CRS Charges Offic Cons New/estab Mod-hi 60 07 Advance Directives Directive Yes / No Effective Date File Name No Information Encounters Encounter Description Practice Location Reason(s) For Visit Diagnoses Date Provider Providers Copied on Encounter [facility], [address] [address], [place], [id number], [place] tel:[phone] [facility] No Information 2 Andrew Carrillo. [address] [facility] [facility], [address], [place], [place], [address], [place]. tel:[phone] [facility] JOSE LUIS, [address] [address], [place], [id number], [place] tel:[phone] [facility] GI Symptoms or Concerns (chief complaint) Benign neoplasm of transverse colonPersonal history of colonic polypsEncounte r for screening for malignant neoplasm of colonBenign neoplasm of transverse colonPersonal history of colonic polyps 2 No Information Referring Provider: Referral Self, USE FOR SELF REFERRALS. [facility] JOSE LUIS, [address] [address], [place], [id number], [place] tel:[phone] [facility] No Information 0 Brando Bonilla. [address] [facility] [facility], [address], [place], [place], [address], [place]. tel:[phone] [facility] JOSE LUIS, [address] [address], [place], [id number], [place] tel:[phone] [facility] Epigastric painBenign gastric polypEpigastri c painPolyp of stomach and duodenum 0 Brando Bonilla. [address] [facility] [facility], [address], [place], [place], [address], [place]. tel:[phone] Referring Provider: Michael Del Angel, [address] [facility] [address], [place], [address] . tel:[phone] Offic/outpt E&m Estab Mod-hi [address] [facility] JOSE LUIS, [address] [address], [place], [id number], [place] tel:[phone] [facility] GI Symptoms or Concerns (chief complaint) Epigastric painGastroesop hageal reflux disease, esophagitis presence not specifiedFamil y history of colon cancer in mother 0 Gómez CEJA Harsh. [address] [facility], [address], [place], [place], [address], [place]. tel:[phone] Referring Provider: Mitchell Harper MD D, [address], [place], [address]. tel:[phone] [facility] [address] [facility], [address] [address], [place], [place], [address], [place] tel:[phone] [facility] Polyp of colon, unspecified part of colon, unspecified typeDiverticul osis large intestine w/o perforation or abscess w/o bleedingEncoun ter for screening for malignant neoplasm of colonPersonal history of colonic polypsBenign neoplasm of transverse colonDvrtclos of lg int w/o perforation or abscess w/o bleeding 9 No Information Referring Provider: Referral Self, USE FOR SELF REFERRALS. [facility] [address], [address] [address], [place], [place], [address], tel:[phone] [facility] No Information 9 No Information Offic Cons New/estab Mod-hi [address] [facility] NOMAD GOODS [place], [address] [address], [place], [place], [address], tel:[phone] [facility] RLQ PainDiverticul itis Of Colon 7 No Information Referring Provider: Georgia Smart MD T, [address], [place], [address] . tel:[phone] Family History Family Member Type Diagnosis Age At Onset Mother Problem (finding) Cancer, colon Immunizations Vaccine Date Status Comments Afluria Qd administered Note: [facility] bi-directional interface ; Source: Other Registry Fluzone Quad 6mo or older administered Note: [facility] bi-direct ional interface ; Source: Other Registry Afluria Qd administered Note: [facility] bi-directional interface ; Source: Other Registry Fluzone Quad 6mo or older administered Note: [facility] bi-direct ional interface ; Source: Other Registry zoster vaccine, live administered Note: [facility] bi-directional interface ; Source: Other Registry Influenza administered Note: [facility] bi-d irectional interface ; Source: Other Registry influenza virus vaccine, unspecified formulation administered Note: [facility] bi-di rectional interface ; Source: Other Registry Influenza, seasonal, injectable administe red Note: [facility] bi- directional interface ; Source: Other Registry influenza virus vaccine, unspecified formulation administered Note: [facility] bi-di rectional interface ; Source: Other Registry tetanus toxoid, reduced diphtheria toxoid, and acellular pertussis vaccine, adsorbed administered Note: [facility] b i-directional interface ; Source: Other Registry influenza virus vaccine, unspecified formulation administered Note: [facility] bi-di rectional interface ; Source: Other Registry diphtheria, tetanus toxoids and acellular pertussis vaccine administered Note: [facility] b i-directional interface ; Source: Other Registry Novel [id number], all formulations administered Note: [facility] bi-direct ional interface ; Source: Other Registry Havrix administered Note: [facility] bi-d irectional interface ; Source: Other Registry Havrix administered Note: [facility] bi-d irectional interface ; Source: Other Registry Havrix administered Note: [facility] bi-d irectional interface ; Source: Other Registry tetanus and diphtheria toxoi ds, adsorbed, preservative free, for adult use (5 Lf of tetanus toxoid and 2 Lf of diphtheria toxoid) administered Note: [facility] bi-direct ional interface ; Source: Other Registry diphtheria, tetanus toxoids and acellular pertussis vaccine administered Note: [facility] b i-directional interface ; Source: Other Registry Payers Payer name Insurance type Covered alliance party ID Authoriza tion(s) Blue Cross Medicare Advantage [id number] Social History Type Description Quantity Date Captured Comments Sex Female Smoking Status No Information Chief Complaint And Reason For Visit No Information Reason For Referral Reason For Referral No Information Plan Of Treatment Date Type Action Status Referral Ordered: EGD Appointment date/timeframe: 03/23/2020 ordered History Of Present Illness Encounter Date Complaint History Of Prese nt Illness GI Symptoms or Concerns GI Symptoms or Concerns A 69-yea r-old female with GI clinic evaluation today for management of epigastric pain.Acute onset of epigastric abdominal pain that initially began about a year ago. Patient was prescribed short course of Omeprazole with complete resolution of her GI symptoms. Patient reports doing well until recurrence of symptoms about a month ago. Described as dull aching intermittent epigastric pain without any radiation. Associated postprandial abdominal bloating and belching. Mild nausea without emesis. No dysphagia or odynophagia. No changes in bowel habits with new onset constipation or diarrhea. Bowel movements 2-3 times a day with normal appearing stools and no overt GI bleeding. Patient was restarted on Omeprazole 20 mg twice daily that she takes before breakfast and bedtime. She also reports avoiding gluten, but not on strict gluten-free diet. Patient feels worsening of mild chronic reflux and heartburn symptoms, whenever she has food with high gluten content. Otherwise weight has been stable and no chest pain, dyspnea, or dizziness.Rare alcohol use of less than a drink a week. No tobacco or illicit use. Family history notable for mom with metastatic colon cancer at young age less than 40. Functional Status Date Functional Assessmen t No Information Instructions Date Instruction Additional Infor mation Colon Cancer Prevention Related to Personal history of colonic polyps Colon Polyps Related to Perso nal history of colonic polyps 1. Schedule EGD for evaluation of intermittent epigastric pain and chronic heartburn.2. Continue twice daily Omeprazole prior to breakfast and dinner.3. Avoid NSAIDs (Ibuprofen, Motrin, Naproxen, Aleve, Excedrin, etc).4. Repeat surveillance colonoscopy due in 06/2024.5. Follow up in GI clinic as needed pending EGD findings. Related to Epigastric pain Diverticulosis/Diverticulitis Re lated to Diverticulosis large intestine w/o perforation or abscess w/o bleeding Colon Polyps Related to Diver ticulosis large intestine w/o perforation or abscess w/o bleeding High Fiber Diet Related to Diver ticulosis large intestine w/o perforation or abscess w/o bleeding Colon Cancer Prevention Related to Diverticulosis large intestine w/o perforation or abscess w/o bleeding Assessments Type Assessment Date No Information Patient Care Teams Name Effective Dates (start - stop) Status Members No Information
--- OUTSIDE RECORDS SUMMARY | 2025-01-30 00:37 | XMS_ITS | Clinical Summary ---
Author Organization [place] Address [address] [place] [address] Care Team Providers Care Nutrition Associate Name Role Phone Brittany Navarro NP Primary [...] mouth daily. 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 Not on file Not on file Not [...] 1950 FLEX SIG 1950 sDNA (Cologuard) 1950 PNEUMOCOCCAL VACCINE 50+ YEARS (1 of 1 - PCV) 2002 TSH W/FREE T4 REFLEX 05/13/2013 05/13/2012, 01/05/2011, 01/05/2011, Additional history exists PHQ-9 10/03/2013 04/02/2013, 10/0 08/2011, 02/20/2011 DIABETES SCREENING 01/12/2014 01/12/2011, 0 01/05/2011, 10/28/2010, Additional history exists ADVANCE CARE PLANNING 02/21/2016 02/20/2011, 011 ZOSTER VACCINE (2 of 3) 04/19/2016 02/23/2016 FALL RISK ASSESSMENT 2017 COLONOSCOPY 04/30/2018 04/30/2013, 04/13, 04/23/2008, Additional history exists COLORECTAL CANCER SCREENING 04/30/2018 LIPID 09/28/2020 09/28/2015, 05/15, 06/10/2013, Additional history exists MEDICARE ANNUAL WELLNESS VISIT 04/13/2022 04/13/2021, 09/28/2015, 09/28/2015, Additional history exists DTAP/TDAP/TD VACCINE (3 - Td or Tdap) 05/13/2022 05/13/2012, 05/13/2010, 12/07/2005, Additional history exists COVID-19 VACCINE ( season) 2024 INFLUENZA VACCINE (Season Ended) 2025 06/10/2018, 06/10/2018, 05/14/2017, Additional history exists MAMMO SCREENING 06/17/2025 06/17/2024, 11/0 03/2022, 01/03/2019, Additional history exists RSV VACCINE (1 - 1-dose 75+ series) 2027 DEXA 10/01/2030 10/01/2015, 09/13, 06/21/2009, Additional history exists HEPATITIS C SCREENING Completed 05/20/2019 , 05/13/2012, 04/04/2004, Additional history exists HPV VACCINE Aged Out No longer eligi ble based on patient's age to complete this topic MENINGITIS VACCINE Aged Out No longer eligible based on patient's age to complete this topic Procedures Procedure Name Priority Date/Time Associated Diagnosis Comments MA SCREENING BILATERAL W/ GA Routine 06/17/2024 9:48 AM ERP PROJECT MANAGER Visit for screening mammogram DX BONE DENSITY Routine 10/01/2015 8:24 AM ERP PROJECT MANAGER Disorder of bone, unspecified Disorder of cartilage, unspecified LIPID PROFILE Routine 09/28/2015 8:41 AM ERP PROJECT MANAGER ZZ[facility] COLONOSCOPY W BIOPSY Routine 04/30/2013 SCANNING [...] Screening Bilateral w/ Ga (06/17/2024 9:48 AM ERP PROJECT MANAGER) Anatomical Region Laterality Modality Breast Bilateral Mammography Impressions 06/17/2024 12:03 PM ERP PROJECT MANAGER IMPRESSION: ACR BI-RADS Category 1: Negative BREAST CANCER SCREENING RECOMMENDATION: Routine yearly mammography beginning at age 40 or as discussed with your provider. The results and recommendations of this examination will be communicated to the patient. Andrae Yuan MD Narrative 06/17/2024 12:03 PM ERP PROJECT MANAGER BILATERAL FULL FIELD DIGITAL SCREENING MAMMOGRAM WITH [...] Result * DX Hip/Pelvis/Spine (10/01/2015 8:24 AM ERP PROJECT MANAGER) Anatomical Region Laterality Modality Dexa Other Narrative 10/03/2015 10:31 AM ERP PROJECT MANAGER BONE MINERAL DENSITY BY DXA SCANNING 10/01/15 [...] was performed on your patient using our GE Lunar iDXA densitometer. The results are summarized and [...] was performed on your patient using our Revolution Prep iDXAdensitometer. The results are summarized and a [...] * (ABNORMAL) Lipid Profile (09/28/2015 8:41 AM ERP PROJECT MANAGER) Cholesterol 218(H) <=200 mg/dL 09/28/2015 11:29 AM ERP PROJECT MANAGER [facility] Triglycerides 114 0 - 150 mg/dL 09/28/2015 11:29 AM ERP PROJECT MANAGER [facility] Direct Measure HDL 71 >=40 mg/dL 09/28/2015 11:29 AM ERP PROJECT MANAGER [facility] LDL Cholesterol Calculated 124 0 - 130 mg/dL 09/28/2015 11:29 AM ERP PROJECT MANAGER [facility] Blood specimen (specimen) Venipuncture / Unknown 09/28/2015 8:41 AM ERP PROJECT MANAGER 09/28/2015 8:41 AM ERP PROJECT MANAGER Xi Shi MD LAB - BLOOD ORDERABLES Final Result [facility] [address] [place] [address], [facility] [address] [place] [address] * COLONOSCOPY W BIOPSY (04/30/2013) Maryjo Tinoco MD PROCEDURES Final Result * Hepatits C antibody ([facility]) (05/13/2012 9:30 AM CDT) HCV Antibody NON-REACTI VE NON-REACTI VE [facility] SIGNAL TO CUT OFF - [facility] 0.01 <1.00 [facility] Blood specimen (specimen) 05/13/2012 9:30 AM CDT 05/14/2012 1:25 AM CDT Narrative Resulting Agency Comment Performing Organization Information: [facility] [address] [place] [address] Aleksandar Gonzales M.D. us Maryjo Tinoco MD LAB - BLOOD ORDERABLES Final R esult Performing Organization Address City/[facility] Co de Phone Number [facility] [address] [place] [address] * TSH (05/13/2012 9:06 AM CDT) TSH 1.47 0.40 - 4.50 mIU/L [facility] Blood specimen (specimen) 05/13/2012 9:06 AM CDT 05/14/2012 1:26 AM CDT Narrative Resulting Agency Comment Performing Organization Information: [facility] [address] [place] [address] Aleksandar Gonzales M.D. us Maryjo Tinoco MD LAB - BLOOD ORDERABLES Final R esult Performing Organization Address [facility] Co de Phone Number [facility] [address] [place] [address] * Glucose (01/12/2011 11:25 AM CDT) Glucose 89 60 - 99 mg/dL [facility] 01/12/2011 11:2 5 AM CDT 01/12/2011 11:40 AM CDT us Kristy Tomas MD LAB - BLOOD ORDERABLES Fi nal Result Performing Organization Address City/[facility] Co de Phone Number [facility] [address] [address], [facility] [phone] from Last 3 Months or Most Recently Relevant to Health Maintenance Insurance [facility] MEDICARE ADVANTAGE [facility] MEDICARE ADVANTAGE OTHER Care Teams Nutrition Associate Relationship Specialty Start Date End Date Brittany Navarro NP [address] [id number] PCP - General 06/12/24
--- OUTSIDE RECORDS SUMMARY | 2025-01-30 00:37 | XMS_ITS | Encounter Summary ---
Author Organization [place] Address [facility] [place] [address] Care Team Providers Care Engine Research Engineer Name Role Phone Brittany Barrera MD Primary Care Provide r Maryjo Tinoco MD Primary Care Provider Brittany Navarro NP Primary Care Provider [phone] Encounter Details Date Type Department Care Team (Late st Contact Info) Description 12/19/2006 [facility] Medical Advice [address] [address] [facility] Social History Tobacco Use Types Packs/Day Years Used Date Smoking Tobacco: Never Alcohol Use Standard Drinks/Week Comments Yes 0 (1 standard drink = 0.6 oz pur e alcohol) occ. 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
--- OUTSIDE RECORDS SUMMARY | 2025-01-30 00:37 | XMS_ITS | Encounter Summary ---
Author Organization [place] Address [facility] [place] [address] Care Team Providers Care Electrical Contacts Adjuster Name Role Phone Brittany Barrera MD Primary Care Provide r Maryjo Tinoco MD Primary Care Provider Brittany Navarro NP Primary Care Provider Encounter Details Date Type Department Care Team (Late st Contact Info) Description 06/25/2008 [facility] Medical Advice Initial Department [facility] Social History Tobacco Use Types Packs/Day Years Used Date Smoking Tobacco: Never Alcohol Use Standard Drinks/Week Comments Yes 0 (1 standard drink = 0.6 oz pur e alcohol) occ. 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
--- OUTSIDE RECORDS SUMMARY | 2025-01-30 00:37 | XMS_ITS | Encounter Summary ---
Author Organization [place] Address [facility] [address] Care Team Providers Care Brick Chimney Builder Name Role Phone Brittany Barrera MD Primary Care Provide r Maryjo Tinoco MD Primary Care Provider [phone] Brittany Navarro NP Primary Care Provider Encounter Details Date Type Department Care Team (Late st Contact Info) Description 06/26/2007 [facility] Medical Advice Initial Department [facility] Social History Tobacco Use Types Packs/Day Years Used Date Smoking Tobacco: Never Alcohol Use Standard Drinks/Week Comments Yes 0 (1 standard drink = 0.6 oz pur e alcohol) occ. 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
--- OUTSIDE RECORDS SUMMARY | 2025-01-30 00:37 | XMS_ITS | Encounter Summary ---
Author Organization [place] Address [address] [place] [address]. [place] [address] Care Team Providers Care Fabric Worker Name Role Phone Brittany Barrera MD Primary Care Provide r Maryjo Tinoco MD Primary Care Provider [phone] Brittany Navarro NP Primary Care Provider Encounter Details Date Type Department Care Team (Late st Contact Info) Description 09/20/2007 [facility] Medical Advice [address] [address] Georgia Smart MD [address] [place] [address] Social History Tobacco Use Types Packs/Day Years Used Date Smoking Tobacco: Never Alcohol Use Standard Drinks/Week Comments Yes 0 (1 standard drink = 0.6 oz pur e alcohol) occ. 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
--- OUTSIDE RECORDS SUMMARY | 2025-01-30 00:37 | XMS_ITS | CCD ---
Author Name Interface, [id number] lity Address [facility] [address] [place] [address] [facility] Address [address] [facility] [address] [place] [address] Care Team Providers Care Air Traffic Instructor Name Role Phone Kaley Vallejo Unavailable Unavailable Reason for Visit Social History
--- OUTSIDE RECORDS SUMMARY | 2025-01-30 00:37 | XMS_ITS | Encounter Summary ---
Author Organization [place] Address [facility] [place] [address] Care Team Providers Care Faculty I On Call Medical Assistant Name Role Phone Brittany Barrera MD Primary Care Provide r Maryjo Tinoco MD Primary Care Provider Brittany Navarro NP Primary Care Provider Encounter Details Date Type Department Care Team (Late st Contact Info) Description 06/21/2006 [facility] Medical Advice [address] [address] [facility] Social History Tobacco Use Types Packs/Day Years Used Date Smoking Tobacco: Never Alcohol Use Standard Drinks/Week Comments Yes 0 (1 standard drink = 0.6 oz pur e alcohol) occ. 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
--- OUTSIDE RECORDS SUMMARY | 2025-01-30 00:37 | XMS_ITS | Encounter Summary ---
Author Organization [place] Address [address] [place] [address]. [place] [address] Care Team Providers Care Granite Block Paver Name Role Phone Brittany Barrera MD Primary Care Provide r Maryjo Tinoco MD Primary Care Provider [phone] Brittnay Navarro NP Primary Care Provider Encounter Details Date Type Department Care Team (Late st Contact Info) Description 02/21/2008 [facility] Medical Advice [address] [place] [address] William Locke MD [address] [place], [place] [address] [address] Social History Tobacco Use Types Packs/Day Years Used Date Smoking Tobacco: Never Alcohol Use Standard Drinks/Week Comments Yes 0 (1 standard drink = 0.6 oz pur e alcohol) occ. 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
--- OUTSIDE RECORDS SUMMARY | 2025-01-30 00:37 | XMS_ITS | CCD ---
Author Name Interface, [id number] lity Address [facility] [address] [place] [address] [facility] Address [address] [facility] [address] [place] [address] Care Team Providers Care Ceramic Tile Setter Name Role Phone Kaley Vallejo Unavailable Unavailable Reason for Visit Social History
--- OUTSIDE RECORDS SUMMARY | 2025-01-30 00:37 | XMS_ITS | Encounter Summary ---
Author Organization [place] Address [facility] [place] [address] Care Team Providers Care Senior Program Planner Name Role Phone Brittany Barrera MD Primary Care Provide r Maryjo Tinoco MD Primary Care Provider Brittany Navarro NP Primary Care Provider Encounter Details Date Type Department Care Team (Late st Contact Info) Description 09/22/2009 [facility] Medical Advice [address] [address] [facility] Social History Tobacco Use Types Packs/Day Years Used Date Smoking Tobacco: Never Alcohol Use Standard Drinks/Week Comments Yes 0 (1 standard drink = 0.6 oz pur e alcohol) occ. 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
--- OUTSIDE RECORDS SUMMARY | 2025-01-30 00:38 | XMS_ITS | Encounter Summary ---
Author Organization [place] Address [facility] [place] [address] Care Team Providers Care Patcher Bowling Ball Name Role Phone Brittany Barrera MD Primary Care Provide r Maryjo Tinoco MD Primary Care Provider Brittany Navarro NP Primary Care Provider Encounter Details Date Type Department Care Team (Late st Contact Info) Description 12/20/2010 [facility] [place] Medical Advice [address] [address] [facility] Social History Tobacco Use Types Packs/Day Years Used Date Smoking Tobacco: Never Alcohol Use Standard Drinks/Week Comments Yes 0 (1 standard drink = 0.6 oz pur e alcohol) occ. 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 LABORER MINE Gender Identity Not on file Sexual Orientation Not on file Occupation Industry Job Start Date Job End Date [employer] Not on file Not on file Not on file documented as of this encounter Plan of Treatment Not on file documented as of this encounter Visit Diagnoses Not on filedocumented in this encounter Care Teams Patcher Bowling Ball Relationship Specialty Start Date End Date Brittany Barrera MD PCP - General 07/15/02 02/19/11 Maryjo Tinoco MD [address] , [address] [place] [address] PCP - General Family Practice 02/20/11 04/22/14 Brittany Navarro NP [address] [address] PCP - General 06/12/24 documented as of this encounter
--- OUTSIDE RECORDS SUMMARY | 2025-01-30 00:38 | XMS_ITS | Clinical Summary ---
Author Organization [facility] Address [address] [place] [address] Care Team Providers Care Underwear Welter Name Role Phone Brittany Navarro AIR CONDITIONING SERVICE TECHNICIAN Primary Care Provider [phone] Allergies Active Allergy Reactions Criticality Noted Date Comments Aspirin Edema 04/09/2013 Face swells Erythromycin Stomach Upset 11/20/2002 GI upset Lactose Rash 04/24/2019 exzema , stomach ache Latex Atopic Dermatitis 04/24/2019 Sulfa (Sulfonamide Antibiotics) Other - Describe In Comment Field 04/24/2019 Canker sores Topiramate Edema 06/10/2013 Ketorolac Edema 04/09/2013 Facial swelling Medications levothyroxine (SYNTHROID) 112 mcg tablet Take 112 mcg by mouth before breakfast. Active Ukhbf-4-OLI-EPA -Fish Oil (FISH OIL) 1,000 mg (120 mg-180 mg) cap Take 1 capsule by mouth once daily. Active medication order composer Take 0.05 mL by mouth once daily. CBD oil Active CrutchIndicatio ns:Acute medial meniscus tear of left knee, subsequent encounter Crutches for post operative use 1 Device 9 Active medication order composer Tumeric Activ e medication order composer Beef gelatin Ac tive Active Problems Problem Noted Date Diagnosed Date Routine physical examination 05/20/2019 Overview (05/22/2019): Last physical: 05/20/2019 Last pap smear: 05/20/2019: co-testing: (can do co-testing every 3 yrs) Last TDAP: 2011 Last Lipid: 05/20/2019: normal Last TSH: 2017 normal Last FBS: 05/20/2019: normal Last mammogram: 12/2017 neg rashel Last Colonoscopy: 3 2017, due: 2019: Last bone density scan: 2015-osteopenia s/p left knee arthroscopic p artial medial meniscectomy by Dr. Ricardo Matute on 04/25/2019 05/06/2019 Small bowel obstruction 04/10/2013 H/O LEEP 12/19/2004 Overview (06/02/2019): 08/02/04 ASCUS/HPV+ 10/25/04 LSIL 11/24/04 ASCUS;COLP:HPV changes 12/19/04 LEEP:STEFAN I All NIL follow up paps 05/2019 NIL/HPV negative Knee pain Encounters Date Type Department Care Team Description 01/26/2025 1:00 PM CDT Ancillary Procedure [facility] [address] [place] [address] Arrived 12/31/2024 10:00 AM CDT Ancillary Procedure [facility] [address] [place] [address] from Last 3 Months Immunizations Immunization Administration Dates Next Due DT (Age < 7 years) 08/19/1996,08/13/1996 DTaP 05/13/2010,08/13/1996 Hepatitis A (Adult) 03/20/2007,09/20/2006,2006 Influenza A (H1N1), Inactivated 09/17/2009 Influenza Virus, Unspecified 06/10/2018, 05/13/2015,06/11/2014,2012,05/13/2012,05/13/2009,05/25/2008,1 ,06/07/2006,07/02/2003, 002,06/19/2001,05/27/1998 Influenza, IIV3 (Age >=3 years) 06/10/2018,06/11 Influenza, IIV4 05/14/2017,05/31/2016 Influenza, IIV4 (=>6mos) MDV 06/01/2015 Td, Preservative Free (age > = 7 Years) 12/07/2005,08/13/1996 Tdap 05/13/2012 Zoster (Zostavax-ZVL, live) 02/23/2016 Family History Medical History Relation Name Comments Cancer-breast No Family History Cancer-ovarian No Family History Social History Tobacco Use Types Packs/Day Years Used Date Smoking Tobacco: Never Smokeless Tobacco: Never Alcohol Use Standard Drinks/Week Comments Yes 0 (1 standard drink = 0.6 oz pur e alcohol) ocassionally PHQ-2 Answer Date Recorded PHQ-2 Score 0 05/20/2019 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 Gender Identity Not on file Sexual Orientation Not on file Obstetrics History Para Term AB IAB SAB Ectopic Multiple Livin g Live Births 3 3 3 3 3 Date Outcome GA Total Labor Labor/09/15 Weight Sex Type Anes PTL Melida A1 A5 Name Clin 1973 Term M Vag Living 1974 Term M Vag Living 1976 Term M Vag Living Last Filed Vital Signs Vital Sign Reading Time Taken Comments Blood Pressure 100/64 05/20/2019 9:12 AM CDT Pulse 72 05/20/2019 9:12 AM CDT Temperature 36.3 C (97.3 F) 04/25/2019 10:45 AM CDT Respiratory Rate 16 05/20/2019 9:12 AM CDT Oxygen Saturation 96% 04/25/2019 11: 38 AM CDT Inhaled Oxygen Concentration - - Weight 61.6 kg (135 lb 12.8 oz) 05/20/2019 9:12 AM CDT Height 160 cm (5' 3) 05/20/2019 9:12 AM CDT Body Mass Index 24.06 05/20/2019 9:12 AM CDT Plan of Treatment Health Maintenance Due Date Last Done Comments Colonoscopy through age 75 1997 Pneumococcal series for age 50+ (1 of 1 - PCV) 2002 Zoster (shingles) series for age 50+ (2 of 3) 04/19/2016 02/23/2016 DEXA/DXA scan for age 65+ 08/17/20172015 (Completed [facility] of [facility]) Medicare Wellness for age 65+ 04/17/2020 04/17/2019 BMI (ht and wt on same day) for age 18+ 05/20/2020 05/20/2019 Depression screening for age 12+ 05/20/2020 05/20/2019 Mammogram for age 45-75 05/11/2022 05/11/20 21, 05/05/2021, 03/17/2020, Additional history exists Tetanus booster 05/13/2022 05/13/2012, 11/12, 08/13/1996 COVID-19 vaccine series ( season) 2024 Lipids for age 45-75 05/20/2024 05/20/2019 Influenza Vaccine (Season Ended) 2025 06/10/2018, 06/10/2018, 05/14/2017, Additional history exists RSV vaccine for adults or (1 - 1-dose 75+ series) 2027 Tdap Completed 05/13/2012 Hepatitis C screening for age 18-79 Completed 05/20/2019 Hepatitis B series for 19+ Aged Out N o longer eligible based on patient's age to complete this topic Procedures Procedure Name Priority Date/Time Associated Diagnosis Comments ECHO TTE LIMITED WO CONTRAST W BUBBLE Routine 01/26/2025 1:05 PM CDT Abnormal findings diagnostic imaging of heart and coronary circulation ECHO TTE COMPLETE WO CONTRAST Routine 12/31/2024 10:24 AM CDT Other chest pain XR MAMMO RASHEL UNI ADDL VIEWS LEFT Routine 05/11/2021 1:47 PM CDT Abnormal mammogram ANTI HCV Routine 05/20/2019 9:59 AM CDT Need for hepatitis C screening test LIPID PANEL Routine 05/20/2019 9:59 AM CDT Screening, lipid from Last 3 Months or Most Recently Relevant to Health Maintenance Results * ECHO TTE LIMITED WO CONTRAST W BUBBLE (01/26/2025 1:05 PM CDT) LVEDD 4.4 cm Anatomical Region Laterality Modality Ultrasound 01/26/2025 12:4 9 PM CDT Narrative 01/26/2025 2:58 PM CDT ECHOCARDIOGRAM BETSY LEAL : 1950 74 years Study Date: 01/26/2025 12:49:29 PM Gender: F BP: 128/82 mmHg Height: 157.00 cm BSA: 1.67 m Weight: 66.00 kg Tech: MJW Referring MD: BRITTANY NAVARRO Site: [facility] Reading Location: Mobile-OP Patient Location: Outpatient. Procedure: 2D w/ Bubbles. Indication for study: Abnormal findings diagnostic imaging of heart and coronary circulation Cardiac Rhythm: Regular.Study quality: Good. Final Impressions: Limited Echocardiogram performed 1. Normal LVEF- see prior complete echo report. 2. Positive bubble study at rest and following Valsalva. Masses, Effusion, Shunts Agitated saline injection showed right to left shunting of microbubbles across the atrial septum at rest and during Valsalva. MEASUREMENTS AND CALCULATIONS 2-D Measurements and LV Function: LVID (d) 4.4 cm LV FS% (2D) 36 % LVID (s) 2.8 cm HR 75 bpm IVS (d) 0.9 cm LVPW (d) 0.7 cm Ao Sinus 3.2 cm Ao Sinus ULN 3.7 cm Asc Ao ULN 3.9 cm LA 3.7 cm . This study was interpreted by an IAC accredited facility. CC: [facility] ([facility]. Final Procedure Note Carlos Guerrero MD - 01/26/2025 ECHOCARDIOGRAM BETSY LEAL : 1950 74 years Study Date: 01/26/2025 12:49:29 PM Gender: F BP: 128/82 mmHg Height: 157.00 cm BSA: 1.67 m Weight: 66.00 kg Tech: MJW Referring MD: BRITTANY NAVARRO Site: [facility] Reading Location: Mobile-OP Patient Location: Outpatient. Procedure: 2D w/ Bubbles. Indication for study: Abnormal findings diagnostic imaging of heart andcoronary circulation Cardiac Rhythm: Regular.Study quality: Good. Final Impressions: Limited Echocardiogram performed 1. Normal LVEF- see prior complete echo report. 2. Positive bubble study at rest and following Valsalva. Masses, Effusion, Shunts Agitated saline injection showed right to left shunting of microbubblesacross the atrial septum at rest and during Valsalva. MEASUREMENTS AND CALCULATIONS 2-D Measurements and LV Function: LVID (d) 4.4 cm LV FS% (2D) 36 % LVID (s) 2.8 cm HR 75 bpm IVS (d) 0.9 cm LVPW (d) 0.7 cm Ao Sinus 3.2 cm Ao Sinus ULN 3.7 cm Asc Ao ULN 3.9 cm LA 3.7 cm . This study was interpreted by an IAC accredited facility. CC: [facility] ([facility]) [facility]. Final us Brittany Navarro AIR CONDITIONING SERVICE TECHNICIAN ECHO ORD Final Resu lt * ECHO TTE COMPLETE WO CONTRAST (12/31/2024 10:24 AM CDT) AORTIC VALVE MEAN PG 5 mmHg EJECTION FRACTION 68 % LVEDD 4.1 cm EJECTION FRACTION 65 - 70% Anatomical Region Laterality Modality Ultrasound 12/31/2024 9:55 AM CDT Narrative 12/31/2024 10:54 AM CDT ECHOCARDIOGRAM BETSY LEAL : 1950 74 years Study Date: 12/31/2024 9:55:06 AM Gender: F BP: 112/69 mmHg Height: 157.00 cm BSA: 1.66 m Weight: 65.00 kg Tech: LOWELL Referring MD: BRITTANY NAVARRO Site: [facility] Reading Location: Mobile-OP Patient Location: Outpatient. Procedure: 2D, Color Doppler and Spectral Doppler. Indication for study: Chest Pain Cardiac Rhythm: Regular.Study quality: Good. Final Impressions: 1. Normal LV size, normal wall thickness, normal function with an estimated EF of 65 - 70%. 2. Right ventricular cavity size is normal, global systolic RV function is normal. 3. No significant valve disease detected. Comparison There are no prior studies on this patient for comparison purposes. Chamber Sizes and Function Normal left ventricular size, normal wall thickness, normal global systolic function with an estimated EF of 65 - 70%. No resting regional wall motion abnormality visualized. Left atrial size is normal. Left atrial pressure is normal. Right ventricular cavity size is normal, global systolic RV function is normal. RV wall thickness is normal. The right atrium is normal. Right atrial volume index is 28 ml/m . Right atrial area is 15 cm . The pulmonary artery is of normal size and origin. The sinus of Valsalva is normal sized. The ascending aorta is normal sized. Valves, RV Pressures and Diastolic Function The aortic valve is normal in structure and trileaflet, no stenosis and no regurgitation. The mitral valve is normal in structure, no mitral regurgitation. Normal diastolic function for age. The tricuspid valve is normal in structure, trace tricuspid regurgitation. The pulmonic valve is normal. Mild pulmonary regurgitation. Masses, Effusion, Shunts There is trivial pericardial effusion. The inferior vena cava is normal sized, respiratory size variation greater than 50%. Color flow Doppler imaging suggests a possible PFO. MEASUREMENTS AND CALCULATIONS 2-D Measurements and LV Function: LVID (d) 4.0 cm LV FS% (2D) 28 % LVID (s) 2.9 cm LVOT diameter 2.2 cm IVS (d) 0.9 cm HR 66 bpm LVPW (d) 0.9 cm LA Vol index 31 ml/m2 Ao Sinus 2.9 cm RA Vol index 28 ml/m2 Ao Sinus ULN 3.7 cm RA area 15 cm Asc Ao 2.9 cm RV Basal Diam 3.7 cm Asc Ao ULN 3.9 cm RV Mid Diam 3.5 cm LA 3.3 cm Diastology: Mitral Tissue Doppler E Peak 1.0 m/s e', Septum 0.11 m/s A Peak 0.7 m/s e', Lateral 0.11 m/s E/A 1.4 E/e' Average 9.11 DT 196 msec Aortic Valve: Vmax 1.6 m/s JAMES (V) 2.94 cm VTI 0.35 m JAMES (I) 2.63 cm LVOT V max 1.2 m/s Max PG 10 mmHg LVOT VTI 0.24 m Mean PG 5 mmHg SV 91 ml Dim Index 0.69 SV index 55 ml/m CO 6.0 l/min CI 3.6 l/min/m Mitral Valve: MVA 3.9 cm MV P 1/2 57 msec Tricuspid Valve and estimated PA pressures: TAPSE 1.8 cm . This study was interpreted by an [facility] accredited facility. Final Procedure Note Kilo Pompa MD - 12/31/2024 ECHOCARDIOGRAM BETSY LEAL : 1950 74 years Study Date: 12/31/2024 9:55:06 AM Gender: F BP: 112/69 mmHg Height: 157.00 cm BSA: 1.66 m Weight: 65.00 kg Tech: LOWELL Referring MD: BRITTANY NAVARRO Site: [facility] Reading Location: Mobile-OP Patient Location: Outpatient. Procedure: 2D, Color Doppler and Spectral Doppler. Indication for study: Chest Pain Cardiac Rhythm: Regular.Study quality: Good. Final Impressions: 1. Normal LV size, normal wall thickness, normal function with anestimated EF of 65 - 70%. 2. Right ventricular cavity size is normal, global systolic RV functionis normal. 3. No significant valve disease detected. Comparison There are no prior studies on this patient for comparison purposes. Chamber Sizes and Function Normal left ventricular size, normal wall thickness, normal globalsystolic function with an estimated EF of 65 - 70%. No resting regionalwall motion abnormality visualized. Left atrial size is normal. Leftatrial pressure is normal. Right ventricular cavity size is normal, globalsystolic RV function is normal. RV wall thickness is normal. The rightatrium is normal. Right atrial volume index is 28 ml/m . Right atrialarea is 15 cm . The pulmonary artery is of normal size and origin. Thesinus of Valsalva is normal sized. The ascending aorta is normal sized. Valves, RV Pressures and Diastolic Function The aortic valve is normal in structure and trileaflet, no stenosis and noregurgitation. The mitral valve is normal in structure, no mitralregurgitation. Normal diastolic function for age. The tricuspid valve isnormal in structure, trace tricuspid regurgitation. The pulmonic valve isnormal. Mild pulmonary regurgitation. Masses, Effusion, Shunts There is trivial pericardial effusion. The inferior vena cava is normalsized, respiratory size variation greater than 50%. Color flow Dopplerimaging suggests a possible PFO. MEASUREMENTS AND CALCULATIONS 2-D Measurements and LV Function: LVID (d) 4.0 cm LV FS% (2D) 28 % LVID (s) 2.9 cm LVOT diameter 2.2 cm IVS (d) 0.9 cm HR 66 bpm LVPW (d) 0.9 cm LA Vol index 31 ml/m2 Ao Sinus 2.9 cm RA Vol index 28 ml/m2 Ao Sinus ULN 3.7 cm RA area 15 cm Asc Ao 2.9 cm RV Basal Diam 3.7 cm Asc Ao ULN 3.9 cm RV Mid Diam 3.5 cm LA 3.3 cm Diastology: Mitral Tissue Doppler E Peak 1.0 m/s e', Septum 0.11 m/s A Peak 0.7 m/s e', Lateral 0.11 m/s E/A 1.4 E/e' Average 9.11 DT 196 msec Aortic Valve: Vmax 1.6 m/s JAMES (V) 2.94 cm VTI 0.35 m JAMES (I) 2.63 cm LVOT V max 1.2 m/s Max PG 10 mmHg LVOT VTI 0.24 m Mean PG 5 mmHg SV 91 ml Dim Index 0.69 SV index 55 ml/m CO 6.0 l/min CI 3.6 l/min/m Mitral Valve: MVA 3.9 cm MV P 1/2 57 msec Tricuspid Valve and estimated PA pressures: TAPSE 1.8 cm . This study was interpreted by an [facility] accredited facility. Final us Brittany Navarro NP ECHO ORD Final Resu lt * XR MAMMO RASHEL UNI ADDL VIEWS LEFT (05/11/2021 1:47 PM CDT) Anatomical Region Laterality Modality BREASTS, Breast Left Mammography 05/11/2021 1:47 PM CDT Narrative 05/11/2021 3:39 PM CDT For Patients: As a result of the Cures Act, medical imaging exams and procedure reports are released immediately into your electronic medical record. You may view this report before your referring provider. If you have questions, please contact your health care provider. EXAM: XR MAMMO RASHEL UNI ADDL VIEWS LEFT, US BREAST UNILATERAL LEFT LIMITED LOCATION: [facility] DATE/TIME: 05/11/2021 1:47 PM INDICATION: Abnormal left mammogram. COMPARISON: Priors back to 12/08/2013. MAMMOGRAPHIC FINDINGS: Left full-field digital diagnostic mammogram performed. There are scattered areas of fibroglandular density. Breast tomosynthesis was used in interpretation. The asymmetries of the upper, outer left breast and lateral left breast decrease on additional views. ULTRASOUND FINDINGS: Targeted ultrasound of the lateral left breast was performed. At the 2:00 left breast 4 cm from the nipple is a benign cyst with thin internal septations measuring 7 x 5 x 6 mm. At the 3:00 left breast 6 cm from the nipple is a benign cluster of cysts measuring 6 x 4 x 5 mm. No suspicious mass. IMPRESSION: ACR BI-RADS Category 2: Benign. Results given to the patient who should resume annual screening mammography. PATIENTS: You will also receive a letter with your examination results in an easy to read format. If you have questions about your results, please contact your referring provider. Procedure Note Lorene Nelson MD - 05/11/2021 For Patients: As a result of the Cures Act, medical imagingexams and procedure reports are released immediately into your electronicmedical record. You may view this report before your referring provider.If you have questions, please contact your health care provider. EXAM: XR MAMMO RASHEL UNI ADDL VIEWS LEFT, US BREAST UNILATERAL LEFTLIMITED LOCATION: [facility] DATE/TIME: 05/11/2021 1:47 PM INDICATION: Abnormal left mammogram. COMPARISON: Priors back to 12/08/2013. MAMMOGRAPHIC FINDINGS: Left full-field digital diagnostic mammogramperformed. There are scattered areas of fibroglandular density. Breasttomosynthesis was used in interpretation. The asymmetries of the upper,outer left breast and lateral left breast decrease on additional views. ULTRASOUND FINDINGS: Targeted ultrasound of the lateral left breast wasperformed. At the 2:00 left breast 4 cm from the nipple is a benign cystwith thin internal septations measuring 7 x 5 x 6 mm. At the 3:00 leftbreast 6 cm from the nipple is a benign cluster of cysts measuring 6 x 4 x5 mm. No suspicious mass. IMPRESSION: ACR BI-RADS Category 2: Benign. Results given to the patient who should resume annual screeningmammography. PATIENTS: You will also receive a letter with your examination results inan easy to read format. If you have questions about your results, pleasecontact your referring provider. Mitchell Harper MAMMO Final Result * ANTI HCV (05/20/2019 9:59 AM CDT) Pathologist [facility] HEPATITIS C ANTIBODY Non-React manasa Non-React manasa 05/20/2019 2:54 PM CDT [facility] Comment:Antibodies to HCV no t detected; does not exclude the possibility of exposure to HCV. Blood BLOOD SPECIMEN / Unknown Venipuncture / Unknown 05/20/2019 9:59 AM CDT 05/20/2019 9:59 AM CDT [place] AIR CONDITIONING SERVICE TECHNICIAN SEND OUTS Final Re sult [facility] [address] [place] [address], * LIPID PANEL (05/20/2019 9:59 AM CDT) CHOLESTEROL,TOTAL 193 100 - 199 mg/dL 05/20/2019 2:32 PM CDT [facility] TRIGLYCERIDES 133 <150 mg/dL 05/20/2019 2:32 PM CDT [facility] HDL CHOLESTEROL 58 >40 mg/dL 9 2:32 PM CDT [facility] NON-HDL CHOLESTEROL 135 <145 mg/dl 05/20/2019 2:32 PM CDT [facility] CHOL/HDL RATIO 3.33 <4.50 05/20/2019 2:32 PM CDT [facility] LDL CHOLESTEROL 108 <=130 mg/dL 05/20/2019 2:32 PM CDT [facility] PROVIDER ORDERED STATUS RANDOM 05/20/2019 2:32 PM CDT [facility] Blood BLOOD SPECIMEN / Unknown Venipuncture / Unknown 05/20/2019 9:59 AM CDT 05/20/2019 9:59 AM CDT us [place] AIR CONDITIONING SERVICE TECHNICIAN CHEMISTRY Final Re sult [facility] [address] [place] [address], from Last 3 Months or Most Recently Relevant to Health Maintenance Insurance [facility] MEDICARE ADVANTAGE MR MEDICARE PART A HB ONLY Advance Directives * Full Code (Latest Code Status on File) Date Activated Date Inactivated Comments 04/25/2019 7:08 AM 04/25/2019 3:11 PM * Full Code Date Activated Date Inactivated Comments 04/10/2013 7:44 AM 04/12/2013 1:46 PM Care Teams Underwear Welter Relationship Specialty Start Date End Date Brittany Navarro, AIR CONDITIONING SERVICE TECHNICIAN [address] [place] [address] PCP - General Emergency Medicine 12/31/24
--- OUTSIDE RECORDS SUMMARY | 2025-01-30 00:38 | XMS_ITS | Encounter Summary ---
Author Organization [place] Address [address] [place] [address]. 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
--- OUTSIDE RECORDS SUMMARY | 2025-01-30 00:38 | XMS_ITS | Encounter Summary ---
Author Organization [place] Address [facility] [place] [address] Care Team Providers Care Audiology Doctor Name Role Phone Brittany Barrera MD Primary Care Provide r Maryjo Tinoco MD Primary Care Provider Brittany Navarro NP Primary Care Provider Encounter Details Date Type Department Care Team (Late st Contact Info) Description 12/28/2010 [facility] Medical Advice [address] [address] [facility] Social History Tobacco Use Types Packs/Day Years Used Date Smoking Tobacco: Never Alcohol Use Standard Drinks/Week Comments Yes 0 (1 standard drink = 0.6 oz pur e alcohol) occ. 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
== END 2025-01-29 10:56 | disposition home or self-care (01) ==
PROVIDERS: PCP Nurse Practitioner Family; Visit Provider Nurse Practitioner Family
DX: Z01.818 Encounter for other preprocedural examination (principal); M25.562 Pain in left knee
CPT/HCPCS: 80053; 82728; 83540; 83550; 85025

== ENCOUNTER 2025-04-28 09:47 | Outpatient (CLI) | payer MEDICARE, SELFPAY | END 2025-04-28 09:48 | disposition home or self-care (01) | LOC: NFLDREF 05-04 16:06 | PROVIDERS: PCP Nurse Practitioner Family; Referring Provider Nurse Practitioner Family; Visit Provider Nurse Practitioner Family | DX: Z13.0 Encounter for screening for diseases of the blood and blood-forming organs and certain disorders involving the immune mechanism (principal); E03.9 Hypothyroidism, unspecified; Z86.39 Personal history of other endocrine, nutritional and metabolic disease | CPT/HCPCS: 82728; 84443 ==